=== PATIENT | female | born 1965 | race Caucasian/White ===

== ENCOUNTER → 2025-11-13 | Outpatient (CLI) | payer OTHER, SELFPAY ==
--- NOTE | 2025-11-13 08:55 | US_ITS ---
PROCEDURE: ABD LIMITED W/ ELASTOGRAPHY REASON FOR EXAM: JACOBSON COMPARISON: None. TECHNIQUE: Procedure Code: [id number] Modality: US Procedure: ABD LIMITED W/ ELASTOGRAPHY Right upper quadrant abdominal ultrasound. [facility] ElastQ Imaging shear wave elastography for non-invasive assessment of liver tissue stiffness. Erica EPIQ Elite. FINDINGS: LIVER: Size: Unremarkable Length: 15 cm Echotexture: Diffusely echogenic suggesting fatty infiltration Contour: Normal Lesions: None identified Elastography: EQI Med: 4.6 kPa EQI Med Juan A: 1.23 m/s IQR/Med: 14.7 %* GALLBLADDER: Surgically absent. COMMON BILE DUCT: Normal measuring 3.9 mm . PANCREAS: Normal Visualized portions of the right kidney are unremarkable. No right upper quadrant ascites. US/ABD Limited w/ Elastography IMPRESSION: NO TO MILD HEPATIC FIBROSIS Fatty infiltration of the liver. Status post cholecystectomy. Reference Values: SRU <1.37 m/s (5.7kPa): No to mild fibrosis 1.37 m/s - 2.2 m/s: Moderate to severe fibrosis >2.2 m/s (15kPa): Significant fibrosis / cirrhosis METAVIR Score F2 or higher: 1.34 m/s (5.7kPa) F3 or higher: 1.55 m/s (7.3kPa) F4: 1.80 m/s (10kPa) * If the IQR/Med is >30%, the variance in the measurements is a large and the a ccuracy of the measurement may be in question. Reading Location: [facility]
--- OUTSIDE RECORDS SUMMARY | 2025-11-13 09:21 | XMS RPT_ITS | CCD ---
Author Organization [facility] Care Team Providers Care Roaster Operator Name Role Phone UNKNOWN, PROVIDER Unavailable Unavailable GABRIEL WILSON Unavailable Unavailable Gholam, Osito Unavailable Unavailable Gabriel Wilson Unavailable Unavailable Gabriel Wilson Unavailable Unavailable Gholam, Osito M Unavailable Unavailable Gabriel Wilson Primary Care Provider [phone] Gabriel Wilson Unavailable Unavailable Unavailable Gabriel Wilson Primary Care Provider TAMIA ENCARNACION Attending Unavailable TAMIA ENCARNACION Referring Unavailable GABRIEL WILSON Primary Care Unavailab le Gabriel Wilson Primary Care Provider Gabriel Wilson Primary Care Provider Gabriel Wilson Primary Care Provider Ms. Ness Steele Attending Chun Steele, MsCierra Kiser Referring Unav ailleroy WILSON, MD GABRIEL DESAI Primary Care Unavai lable STENGOLDIE, MD GABRIEL DESAI Primary Care Unavai lable STENGOLDIE, MD GABRIEL DESAI Attending Unavai lable STENCEL, MD GABRIEL DESAI Referring Unavai lable STENCEL, MD GABRIEL DESAI Primary Care Unavai lable STENGOLDIE, MD GABRIEL DESAI Attending Unavai lable STENCEL, MD GABRIEL DESAI Referring Unavai lable Stencel, Dr. Gabriel Desai Attending Unava ilable Stencel, Dr. Gabriel Desai Primary Care Unava ilGabriel Rice MD Primary Care Provider [phone] Gabriel Wilson MD Primary Care Provider [phone] Cedric MONITORING AND EVALUATION ADVISOR-BLANKING MACHINE OPERATOR, Ness L Unavailable Gabriel Wilson MD Unavailable Gabriel Wilson MD Primary Care Provider Gabriel Wilson MD Unavailable Gabriel Wilson MD Primary Care Provider Gabriel Wilson MD Unavailable Gabriel Wilson MD Primary Care Provider [phone] GABRIEL WILSON Attending Unavailable STENCEL, GABRIEL Braden Referring Unavailable STENCEL, GABRIEL Braden Primary Care Unavailable STENCEL, GABRIEL Braden Attending Unavailable STENCEL, GABRIEL Braden Referring Unavailable STENCEL, GABRIEL Braden Primary Care Unavailable STENCEL, AGBRIEL Braden Referring Unavailable STENCEL, GABRIEL Braden Primary Care Unavailable RODGERS, JAY B Attending Unavailable STENCEL, GABRIEL Braden Primary Care Unavailable RODGERS, JAY B Referring Unavailable STENCEL, GABRIEL Braden Primary Care Unavailable STENCEL, GABRIEL Braden Primary Care Unavailable TAMIA ENCARNACION Attending Unavailable STENCEL, GABRIEL Braden Primary Care Unavailable RODGERS, JAY B Referring Unavailable RODGERS, JAY B Referring Unavailable STENCEL, GABRIEL Braden Primary Care Unavailable RODGERS, JAY B Attending Unavailable RODGERS, JAY B Referring Unavailable STENCEL, GABRIEL Braden Primary Care Unavailable RODGERS, JAY B Referring Unavailable STENCEL, GABRIEL Braden Primary Care Unavailable RODGERS, JAY B Attending Unavailable STENGOLDIE, GABRIEL Braden Primary Care Unavailable RODGERS, JAY B Referring Unavailable Allergies Allergy Classification Reported Allergen(s) Allergy Type Date of Onset Reaction(s) Facility (7 sources) traMADol; Translations: [Ultram] Drug Allergy [place] [id number] [facility] Work Phone: (20 sources) traMADol; Translations: [TRAMADOL] Drug Allergy 04-30-2014 Vomiting, Unknown [facility] Medications Current Medications Medication Drug Class(es) Dates Sig (Normalized) Sig (Original) [id number] 200 actuat albuterol 0.09 mg/actuat metered dose inhaler (6 sources) beta2-Adrenergic Agonist Start: 03-01-2024 take 2 puff(s) by inhalation every six hours for wheezing albuterol 90 mcg/actuation inhaler Indications: Wheezing-associate d respiratory infection (WARI) Inhale 2 puffs every 6 hours if needed for wheezing. 18 g 3 03/01/2024 Active End: 03-01-2024 albuterol 90 mcg/actuation i nhaler Inhale. 0 03/01/2024 Discontinued (Reorder) Albuterol AERS R efills: 0 Active aspirin 325 mg oral tablet (20 sources) Platelet Aggregation Inhibitor, Nonsteroidal Anti-inflammatory Drug Start: 02-03-2020 take 1 tablet by mouth once daily aspirin 325 mg tablet Take 1 tablet (325 mg) by mouth once daily. 02/03/2020 Active Start: 02-03-2020 take 1 tablet by sebastian th once daily Aspirin 325 MG Oral Tablet Delayed Release Take 1 tablet daily Quantity: 0 Refills: 0 Ordered: 03-Feb-2020 DO Start : 03-Feb-2020 Active Comment on above: Take 325 mg by mouth once daily. doxycycline hyclate 100 mg oral capsule (1 source) Tetracycline-class Drug Start: End: doxycycline (Vibramycin) 100 mg capsule Indications: Wheezing-associate d respiratory infection (WARI) Take 1 capsule (100 mg) by mouth 2 times a day for 7 days. Take with at least 8 ounces (large glass) of water, do not lie down for 30 minutes after 14 capsule 3 03/01/2024 03/08/2024 Active hydroCHLOROthiazide 12.5 mg / losartan potassium 50 mg oral tablet (20 sources) Thiazide Diuretic, Angiotensin 2 Receptor Jinny Start: 014 End: take 1 tablet by mouth once daily LOSARTAN-HYDROCHLO ROTHIAZIDE 50-12.5 mg per tablet Take 1 tablet by mouth once daily. 04/09/2014 Active Comment on above: Take 1 tablet by sebastian th once daily. nitrofurantoin, macrocrystals 25 mg / nitrofurantoin, monohydrate 75 mg oral capsule (1 source) Nitrofuran Antibacterial Start: 023 End: take 1 capsule by mouth twice daily nitrofurantoin, macrocrystal-monoh ydrate, (Macrobid) 100 mg capsule Indications: Acute cystitis without hematuria Take 1 capsule (100 mg) by mouth 2 times a day for 5 days. 10 capsule 0 08/31/2023 09/05/2023 Active predniSONE 10 mg oral tablet (3 sources) Start: End: take 4 tablets by mouth once daily predniSONE (Deltasone) 10 mg tablet Indications: Wheezing-associate d respiratory infection (WARI) Take 4 tablets (40 mg) by mouth once daily for 5 days. 20 tablet 3 03/01/2024 03/06/2024 Active Start: 08-31-2023 End: 09-05-2023 take 4 tablets by mouth once daily predniSONE (Deltasone) 10 mg tablet Indications: Urticaria Take 4 tablets (40 mg) by mouth once daily for 5 days. 20 tablet 1 08/31/2023 09/05/2023 Active Start: 01-19-2023 take 2 tablets by [facility] once daily predniSONE 20 MG Oral Tablet TAKE 2 TABLET Daily Quantity: 10 Refills: 1 Ordered: 19-Jan-2023 Ness Jimenez Start : 19-Jan-2023 Active Completed/Discontinued Medications Medication Drug Class(es) Dates Sig (Normalized) Sig (Original) Albuterol AERS (6 sources) Albuterol AERS Quantity: 0 Refills: 0 Ordered: 07-Aug-2018 DO Active cefprozil 250 mg oral tablet (2 sources) Cephalosporin Antibacterial Start: 01-27-2022 End: 08-02-2022 take 1 tablet by mouth once daily Cefprozil 250 MG Oral Tablet TAKE 1 TABLET EVERY 12 HOURS DAILY. Quantity: 14 Refills: 1 Ordered: 27-Jan-2022 Gabriel Wilson MD Start : 27-Jan-2022 End : 02-Aug-2022 Complete cefuroxime 500 mg oral tablet (1 source) Cephalosporin Antibacterial Start: 01-19-2023 take 1 tablet by mouth once daily Cefuroxime Axetil 500 MG Oral Tablet TAKE 1 TABLET EVERY 12 HOURS DAILY. Quantity: 14 Refills: 0 Ordered: 19-Jan-2023 Ness Jimenez Start : 19-Jan-2023 Active cyclobenzaprine hydrochloride 5 mg oral tablet (8 sources) Muscle Relaxant Start: 06-30-2023 End: 08-28-2024 take 1 tablet by mouth once daily as needed cyclobenzaprine (FLEXERIL) 5 mg tablet Take 1 tablet by mouth once daily as needed. 30 tablet 06/30/2023 08/28/2024 Discontinued Comment on above: Take 1 tablet by sebastian once daily as needed. hydroxyurea 500 mg oral capsule (20 sources) Antimetabolite Start: 03-02-2022 End: 05-27-2025 take 1 capsule by mouth twice daily, then take 1 capsule by mouth once daily hydroxyurea (HYDREA) 500 mg capsule Indications: Thrombocythemia , Macrocytosis without anemia TAKE 1 CAPSULE BY MOUTH TWICE A DAY MONDAY THROUGH MONDAY AND TAKE 1 CAP DAILY ON MONDAY 60 capsule 5 02/25/2025 05/27/2025 Discontinued take 1 capsule by mouth once olamide ly Hydrea 500 MG Oral Capsule TAKE 1 CAPSULE ONCE DAILY. Quantity: 0 Refills: 0 Ordered: 02-Jul-2020 DO Active Comment on above: TAKE 1 CAPSULE BY MO UT TWICE A DAY MONDAY THROUGH MONDAY AND TAKE 1 CAP DAILY MONDAY AND MONDAY TAKE 1 CAPSULE BY MO UTH TWICE A DAY MONDAY THROUGH MONDAY AND TAKE 1 CAP DAILY ON MONDAY pantoprazole 40 mg delayed release oral tablet (1 source) Proton Pump Inhibitor Start: 02-28-20 End: 08-31-20 take 1 tablet by mouth once daily pantoprazole (ProtoNix) 40 mg EC tablet Indications: Gastroesophageal reflux disease without esophagitis Take 1 tablet (40 mg) by mouth once daily. Do not crush, chew, or split. 30 tablet 5 02/27/2023 08/31/2023 Discontinued (Ineffective) potassium chloride 10 meq extended release oral tablet (8 sources) Start: 11-28-19 End: 05-27-20 take 1 tablet by mouth once daily potassium chloride (K-TAB) 10 mEq tablet Indications: Hypokalemia TAKE 1 TABLET BY MOUTH EVERY DAY 30 tablet 01/27/2025 05/27/2025 Discontinued Problems Active Problems Problem Classification Problem Date Documented Da te Episodic/Chronic Allergic reactions (1 source) Urticaria; Translations: [Urticaria, unspecified] 08-31-2023 Episodic Essential hypertension (18 sources) Hypertensive disorder; Translations: [Unspecified essential hypertension] Onset: 01-03-2023 08-31-2023 Chronic Fluid and electrolyte disorders (3 sources) Hypokalemia; Translations: [Hypokalemia] 11-28-2024 Episodic Hepatitis (11 sources) Nonalcoholic steatohepatitis; Translations: [Other chronic nonalcoholic liver disease] Onset: 01-03-2023 01-03-2023 Chronic Immunizations and screening for infectious disease (20 sources) Patient encounter status; Translations: [Other specified vaccination] Onset: 06-30-2023 06-30-2023 Episodic Neoplasms of unspecified nature or uncertain behavior (11 sources) Thrombocytosis; Translations: [Essential thrombocythemia] Onset: 03-01-2024 03-01-2024 Chronic Neoplasms of unspecified nature or uncertain behavior (20 sources) Thrombocytosis; Translations: [Essential thrombocythemia] Onset: 12-10-2009 12-10-2009 Episodic Other connective tissue disease (1 source) Pain in left lower limb; Translations: [Pain in left leg] Episodic Other hematologic conditions (20 sources) Macrocytosis - no anemia; Translations: [Other specified diseases of blood and blood-forming organs] Onset: 06-30-2023 06-30-2023 Chronic Other hematologic conditions (1 source) Other specified diseases of blood and blood-forming organs; Translations: [Macrocytosis without anemia] Onset: 06-30-2023 Chronic Other liver diseases (1 source) Fatty (change of) liver, not elsewhere classified; Translations: [Fatty (change of) liver, not elsewhere classified] Onset: 08-29-2018 Chronic Other liver diseases (12 sources) Steatosis of liver; Translations: [Other chronic nonalcoholic liver disease] Onset: 01-03-2023 01-03-2023 Chronic Other lower respiratory disease (1 source) Wheezing; Translations: [Wheezing] Onset: 02-28-2023 Episodic Other lower respiratory disease (2 sources) Respiratory tract infection; Translations: [Other specified respiratory disorders] 03-01-2024 Episodic Other nutritional; endocrine; and metabolic disorders (12 sources) Obesity; Translations: [Obesity, unspecified] Onset: 01-03-2023 01-03-2023 Chronic Other screening for suspected conditions (not mental disorders or infectious disease) (6 sources) Encounter for screening mammogram for malignant neoplasm of breast; Translations: [Encounter for screening for malignant neoplasm of colon] Onset: 04-11-2025 Episodic Other upper respiratory infections (1 source) Acute pharyngitis; Translations: [Acute pharyngitis] Episodic Otitis media and related conditions (1 source) Acute suppurative otitis media without spontaneous rupture of ear drum; Translations: [Acute suppurative otitis media without spontaneous rupture of eardrum] Episodic Unclassified (2 sources) Fatty (change of) liver, not elsewhere classified / K76.0(ICD-9) Onset: 08-29-2018 Unclassified (1 source) Hepatic fibrosis / K74.0(ICD-9) Onset: 08-29-2018 Unclassified (2 sources) Subacute cough; Translations: [Subacute cough] Onset: 02-28-2023 Unclassified (1 source) Cough, unspecified; Translations: [Cough, unspecified] Onset: 02-28-2023 Unclassified (4 sources) Patient encounter status 04-11-2025 Unclassified (1 source) Thrombocytosis, unspecified; Translations: [Thrombocytosis, unspecified] Onset: 01-03-2023 Unclassified (1 source) Thrombocythemia; Translations: [Thrombocythemia] Onset: 12-10-2009 Urinary tract infections (1 source) Acute cystitis; Translations: [Acute cystitis without hematuria] 08-31-2023 Episodic Past or Other Problems Problem Classification Problem Date Documented Da te Episodic/Chronic Administrative/social admission (1 source) Patient entered into trial; Translations: [Research study patient] Calculus of urinary tract (11 sources) Kidney stone; Translations: [Calculus of kidney] Onset: 01-03-2023 01-03-2023 Episodic Other aftercare (11 sources) Long-term current use of drug therapy; Translations: [Encounter for therapeutic drug level monitoring] Onset: 06-30-2023 06-30-2023 Episodic Other liver diseases (11 sources) Elevated liver enzymes level; Translations: [Other nonspecific abnormal serum enzyme levels] Onset: 01-03-2023 01-03-2023 Episodic Other lower respiratory disease (2 sources) Other specified respiratory disorders; Translations: [Other specified respiratory disorders] Onset: 08-30-2024 Episodic Residual codes; unclassified (7 sources) Past history of procedure; Translations: [Other specified personal history presenting hazards to health] Onset: 08-07-2019 Episodic Unclassified (1 source) Subacute cough; Translations: [Subacute cough] Onset: 02-28-2023 Unclassified (1 source) Onset: 04-11-2025 04-11-2025 Unclassified (1 source) Thrombocytosis, unspecified; Translations: [Thrombocytosis, unspecified] Onset: 08-30-2024 NEGATED: Highlighted row has not occurred!Residual codes; unclassified (9 sources) Disease Episodic Results Test Name Value Interpretation Reference Range Facility CBC W Auto Differential pane l (Bld)on 10-06-2025 Basophils (Bld) [#/Vol] 0.06 10*3/uL Normal <0.11 [facility] Comment on above: Order Comment: Speci jaylin Type: BLOOD SPECIMEN Ordering Facility: [facility] Address: [address] [place] [address] Performed By: #### 2 4323-8 #### [facility] CLIA [id number] [address] [place] [id number] [place] Basophils/100 WBC (Bld) 0.9 % Normal [facility] Comment on above: Order Comment: Cathleen mosqueda Type: BLOOD SPECIMEN Ordering Facility: [facility] Address: [address] [place] [address] Performed By: #### 2 4323-8 #### [facility] CLIA [id number] [address] [id number] [place] Differential cell count method Nom (Bld) Auto Normal [facility] Comment on above: Order Comment: Cathleen mosqueda Type: BLOOD SPECIMEN Ordering Facility: [facility] Address: [address] [place] [address] Performed By: #### 2 4323-8 #### [facility] CLIA [id number] [facility] [place] [id number] [place] Eosinophils (Bld) [#/Vol] 0.19 10*3/uL Normal <0.46 [facility] Comment on above: Order Comment: Cathleen mosqueda Type: BLOOD SPECIMEN Ordering Facility: [facility] Address: [address] [place] [address] Performed By: #### 2 4323-8 #### [facility] CLIA [id number] [address] [place] [id number] [place] Eosinophils/100 WBC (Bld) 3.0 % Normal [facility] Comment on above: Order Comment: Speci men Type: BLOOD SPECIMEN Ordering Facility: [facility] Address: [address] [place] [address] Performed By: #### 2 4323-8 #### [facility] CLIA [id number] [address] [place] [id number] [place] Erythrocyte distribution width (RBC) [Ratio] 12.4 % Normal 11.5-15.0 [facility] Comment on above: Order Comment: Speci men Type: BLOOD SPECIMEN Ordering Facility: [facility] Address: [address] [place] [address] Performed By: #### 2 4323-8 #### [facility] CLIA [id number] [facility] [place] [id number] [place] Hematocrit (Bld) [Volume fraction] 42.3 % Normal 36.0-46.0 [facility] Comment on above: Order Comment: Speci men Type: BLOOD SPECIMEN Ordering Facility: [facility] Address: [address] [place] [address] Performed By: #### 2 4323-8 #### [facility] CLIA [id number] [facility] [place] [id number] [place] Hemoglobin (Bld) [Mass/Vol] 14.8 g/dL Normal 11.5-15.5 [facility] Comment on above: Order Comment: Speci men Type: BLOOD SPECIMEN Ordering Facility: [facility] Address: [address] [place] [address] Performed By: #### 2 4323-8 #### [facility] CLIA [id number] [address] [place] [id number] [place] Immature granulocytes (Bld) [#/Vol] 10*3/uL Normal <0.10 [facility] Comment on above: Order Comment: Speci men Type: BLOOD SPECIMEN Ordering Facility: [facility] Address: [address] [place] [address] Performed By: #### 2 4323-8 #### [facility] CLIA [id number] [address] [place] [id number] [place] Immature granulocytes/100 WBC (Bld) 0.3 % Normal [facility] Comment on above: Order Comment: Speci men Type: BLOOD SPECIMEN Ordering Facility: [facility] Address: [address] [place] [address] Performed By: #### 2 4323-8 #### [facility] CLIA [id number] [address] [place] [id number] [place] Lymphocytes (Bld) [#/Vol] 1.91 10*3/uL Normal 1.00-4.00 [facility] Comment on above: Order Comment: Speci men Type: BLOOD SPECIMEN Ordering Facility: [facility] Address: [address] [place] [address] Performed By: #### 2 4323-8 #### [facility] CLIA [id number] [facility] [place] [address] [place] Lymphocytes/100 WBC (Bld) 29.9 % Normal [facility] Comment on above: Order Comment: Speci men Type: BLOOD SPECIMEN Ordering Facility: [facility] Address: [address] [place] [address] Performed By: #### 2 4323-8 #### [facility] CLIA [id number] [facility] [place] [id number] [place] MCH (RBC) [Entitic mass] 37.2 pg High 26.0-34.0 [facility] Comment on above: Order Comment: Speci men Type: BLOOD SPECIMEN Ordering Facility: [facility] Address: [address] [place] [address] Performed By: #### 2 4323-8 #### [facility] CLIA [id number] [facility] [place] [id number] [place] MCHC (RBC) [Mass/Vol] 35.0 g/dL Normal 30.5-36.0 [facility] Comment on above: Order Comment: Speci men Type: BLOOD SPECIMEN Ordering Facility: [facility] Address: [address] [place] [address] Performed By: #### 2 4323-8 #### [facility] CLIA [id number] [address] [place] [id number] [place] MCV (RBC) [Entitic vol] 106.3 fL High 80.0-100.0 [facility] Comment on above: Order Comment: Speci men Type: BLOOD SPECIMEN Ordering Facility: [facility] Address: [address] [place] [address] Performed By: #### 2 4323-8 #### [facility] CLIA [id number] [address] [place] [id number] [place] Monocytes (Bld) [#/Vol] 0.29 10*3/uL Normal <0.87 [facility] Comment on above: Order Comment: Speci men Type: BLOOD SPECIMEN Ordering Facility: [facility] Address: [address] [place] [address] Performed By: #### 2 4323-8 #### [facility] CLIA [id number] [address] [place] [id number] [place] Monocytes/100 WBC (Bld) 4.5 % Normal [facility] Comment on above: Order Comment: Speci men Type: BLOOD SPECIMEN Ordering Facility: [facility] Address: [address] [place] [address] Performed By: #### 2 4323-8 #### [facility] CLIA [id number] [address] [place] [id number] [place] Neutrophils (Bld) [#/Vol] 3.91 10*3/uL Normal 1.45-7.50 [facility] Comment on above: Order Comment: Speci men Type: BLOOD SPECIMEN Ordering Facility: [facility] Address: [address] [place] [address] Performed By: #### 2 4323-8 #### [facility] CLIA [id number] [address] [id number] [place] Neutrophils/100 WBC (Bld) 61.4 % Normal [facility] Comment on above: Order Comment: Speci men Type: BLOOD SPECIMEN Ordering Facility: [facility] Address: [address] [place] [address] Performed By: #### 2 4323-8 #### [facility] CLIA [id number] [address] [place] [address] [place] Nucleated RBC (Bld) [#/Vol] 10*3/uL Normal <0.01 [facility] Comment on above: Order Comment: Speci men Type: BLOOD SPECIMEN Ordering Facility: [facility] Address: [address] [place] [address] Performed By: #### 2 4323-8 #### [facility] CLIA [id number] [address] [id number] [place] Nucleated RBC/100 WBC (Bld) [Ratio] 0.0 /100 WBC Normal [facility] Comment on above: Order Comment: Speci men Type: BLOOD SPECIMEN Ordering Facility: [facility] Address: [address] [place] [address] Performed By: #### 2 4323-8 #### [facility] CLIA [id number] [address] [place] [id number] [place] Platelet mean volume (Bld) [Entitic vol] 8.5 fL Low 9.0-12.7 [facility] Comment on above: Order Comment: Speci men Type: BLOOD SPECIMEN Ordering Facility: [facility] Address: [address] [place] [address] Performed By: #### 2 4323-8 #### [facility] CLIA [id number] [address] [place] [address] [place] Platelets (Bld) [#/Vol] 428 10*3/uL High 150-400 [facility] Comment on above: Order Comment: Speci men Type: BLOOD SPECIMEN Ordering Facility: [facility] Address: [address] [place] [address] Performed By: #### 2 4323-8 #### [facility] CLIA [id number] [address] [id number] [place] RBC (Bld) [#/Vol] 3.98 10*6/uL Normal 3.90-5.20 [facility] Comment on above: Order Comment: Speci men Type: BLOOD SPECIMEN Ordering Facility: [facility] Address: [address] [place] [address] Performed By: #### 2 4323-8 #### [facility] CLIA [id number] [facility] [id number] [facility] WBC (Bld) [#/Vol] 6.38 10*3/uL Normal 3.70-11.00 [facility] Comment on above: Order Comment: Speci men Type: BLOOD SPECIMEN Ordering Facility: [facility] Address: [address] [place] [address] Performed By: #### 2 4323-8 #### [facility] CLIA [id number] [facility] [place] [id number] [facility] CNOVSPon 10-06-2025 CNOVSP Visit (SP) Office (H EMAAR) RAYA DOMINGUEZ ([id number]) 1965 F Date Time Provider Department 10/06/25 11:00 AM JAY RODGERS During your visit today, we recorded the following information about you: Pulse Respiration Blood pressure Weight 80/minute 16/minute 120/82 106.2 kg Jay Rodgers 10/06/2025 11:28 AM Signed HISTORY OF PRESENT ILLNESS: Ms. Raya Dominguez is a 60-year-old female with a past medical history of retention who has been diagnosed with essential thrombocytosis. Patient has been seen by Dr. Tomas. For complete details please see Dr. Tomas's note dated 10/16/2023. Patient currently is on Hydrea. She reports tolerating this well. She is without complaint. She was initially diagnosed with essential thrombocytosis in 10/2009. Patient initially was reluctant to start on Hydrea. He was just managed with observation until April 14, 2020 when she agreed to start on Hydrea. Patient's doses have gradually increased. Patient currently is taking Hydrea 500 mg twice BID Monday through and 1 tablet (500 mg )on Monday. She now returns CURRENT STATUS: Patient appears to be tolerating the Hydrea well. Patient is currently taking aspirin a day. She is currently without complaint. She is still working at [employer]. She has a son in [place] and a son in [place]. She reports that she developed a URI and has been rx doxcycline and is on day #4. ECOG PERFORMANCE STATUS: 0- Fully active, able to carry on all pre-disease performance w/o restriction. Social History Tobacco Use Smoking status: Never Smokeless tobacco: Never Substance Use Topics Alcohol use: No Drug use: No FAMILY HISTORY Problem Relation Age of Onset Thyroid Mother Cancer Father lung Hypertension Father Hypertension Sister Stroke Paternal Grandmother PAST MEDICAL HISTORY Diagnosis Date Hypertension Other acute pain 01/02/2012 Thrombocythemia (HCC) PHYSICAL EXAM: BP 120/82 Pulse 80 Resp 16 Wt 234 lb 2.1 oz (106.2kg) SpO2 94% CONSTITUTIONAL: Awake, alert, oriented. HEAD (Incl. face): Normocephalic; Atraumatic. EYES: Pupils are reactive. No scleral icterus. HEENT: No oral exudates. NECK: No thyromegaly. No JVD. HEMATOLOGY/LYMPHATIC: No petechiae or purpura. No tender or palpable lymph nodes in the cervical, supraclavicular, axillary or inguinal areas. RESPIRATORY: Lungs are clear to auscultation. CARDIOVASCULAR: Regular rate and rhythm. 2 + radial pulse. ABDOMEN: Non-tender, soft, positive bowel sounds. BACK/SPINE: No kyphosis or scoliosis. Non tender to palpation. MUSCULOSKELETAL: No tenderness or swelling, normal range of motion without obvious weakness. EXTREMITIES: No cyanosis, clubbing INTEGUMENTARY: No rashes or masses. NEURO: No sensory or motor deficits, normal cerebellar function, normal gait, cranial nerves intact. PSYCHIATRIC: Pleasant affect. No signs of agitation. LABS: Latest Reference Range AND Units 10/06/25 11:11 WBC 3.70 - 11.00 k/uL 6.38 RBC 3.90 - 5.20 m/uL 3.98 Hemoglobin 11.5 - 15.5 g/dL 14.8 Hematocrit 36.0 - 46.0 % 42.3 Platelet Count 150 - 400 k/uL 428 (H) MCV 80.0 - 100.0 fL 106.3 (H) MCH 26.0 - 34.0 pg 37.2 (H) MCHC 30.5 - 36.0 g/dL 35.0 MPV 9.0 - 12.7 fL 8.5 (L) RDW-CV 11.5 - 15.0 % 12.4 DTYPE Auto Neut% % 61.4 Abs Neut (ANC) 1.45 - 7.50 k/uL 3.91 Lymph% % 29.9 Abs Lymph 1.00 - 4.00 k/uL 1.91 [place]% % 4.5 Abs [place] <0.87 k/uL 0.29 Eosin% % 3.0 Abs Eosin <0.46 k/uL 0.19 Baso% % 0.9 Abs Baso <0.11 k/uL 0.06 Immature Gran % % 0.3 IMMATURE GRANS (ABS) <0.10 k/uL <0.03 NRBC /100 WBC 0.0 Absolute nRBC <0.01 k/uL <0.01 (H): Data is abnormally high (L): Data is abnormally low ASSESSMENT / PLAN: Esssential thrombocytosis, JAK2 mutated. She will now take 1000 mg Monday through Monday 500 mg on Monday. Her platelet count is mildly elevated but she is recovering from a URI and a course of antibiotics(3 more left) Will continue on current dose. Return to see me in 3 months. Some Elements Copied from my note previous note, May 27, 2025 I have updated where appropriate, and all reflect current medical decision making from today, October 06, 2025 Jay Rodgers MD This note was partially generated using Bilna voice recognition system, and there may be some incorrect words, spellings, and punctuation that were not noted in checking the note before saving. Referring Provider: JAY RODGERS [[id number]] Allergies As of Date: 10/06/2025 Noted Allergy Reaction ULTRAM (TRAMADOL) 04/30/2014 11 - Vomiting Date Reviewed: 10/06/2025 Reviewed by: Parvez Chaves MA - Fully Assessed Reason for Visit: Follow Up [171] Primary Visit Diagnosis:Thrombocythemia [D75.839] Disposition: Return in about 3 months (around 01/06/2026) for labs prior. Follow-up and Disposition History for Encounter Date Provider (more content not included)... Normal [facility] Comprehensive metabolic 2000 panelon 10-06-2025 Albumin [Mass/Vol] 4.5 g/dL Normal 3.9-4.9 [facility] Comment on above: Order Comment: Speci men Type: BLOOD SPECIMEN Ordering Facility: [facility] Address: [address] [place] [address] Performed By: #### 2 4323-8 #### [facility] CLIA [id number] [address] [place] [id number] [place] ALP [Catalytic activity/Vol] 118 U/L Normal 34-123 [facility] Comment on above: Order Comment: Speci men Type: BLOOD SPECIMEN Ordering Facility: [facility] Address: [address] [place] [address] Performed By: #### 2 4323-8 #### [facility] CLIA [id number] [address] [place] [id number] [place] ALT [Catalytic activity/Vol] 49 U/L High 7-38 [facility] Comment on above: Order Comment: Speci men Type: BLOOD SPECIMEN Ordering Facility: [facility] Address: [address] [place] [address] Performed By: #### 2 4323-8 #### [facility] CLIA [id number] [address] [place] [id number] [place] Anion gap [Moles/Vol] 10 mmol/L Normal 8-15 [facility] Comment on above: Order Comment: Speci men Type: BLOOD SPECIMEN Ordering Facility: [facility] Address: [address] [place] [address] Performed By: #### 2 4323-8 #### [facility] CLIA [id number] [address] [place] [address] [place] AST [Catalytic activity/Vol] 31 U/L Normal 13-35 [facility] Comment on above: Order Comment: Speci men Type: BLOOD SPECIMEN Ordering Facility: [facility] Address: [address] [place] [address] Performed By: #### 2 4323-8 #### [facility] CLIA [id number] [address] [place] [id number] [place] Bilirubin [Mass/Vol] 0.4 mg/dL Normal 0.2-1.3 [facility] Comment on above: Order Comment: Speci men Type: BLOOD SPECIMEN Ordering Facility: [facility] Address: [address] [place] [address] Performed By: #### 2 4323-8 #### [facility] CLIA [id number] [address] [place] [id number] [place] Calcium [Mass/Vol] 10.4 mg/dL High 8.5-10.2 [facility] Comment on above: Order Comment: Speci men Type: BLOOD SPECIMEN Ordering Facility: [facility] Address: [address] [place] [address] Performed By: #### 2 4323-8 #### [facility] CLIA [id number] [address] [place] [id number] [place] Chloride [Moles/Vol] 101 mmol/L Normal 98-107 [facility] Comment on above: Order Comment: Speci men Type: BLOOD SPECIMEN Ordering Facility: [facility] Address: [address] [place] [address] Performed By: #### 2 4323-8 #### [facility] CLIA [id number] [address] [place] [id number] [place] CO2 [Moles/Vol] 29 mmol/L Normal 22-30 [facility] Comment on above: Order Comment: Speci men Type: BLOOD SPECIMEN Ordering Facility: [facility] Address: [address] [place], [place] [address] Performed By: #### 2 4323-8 #### [facility] CLIA [id number] [address] [place] [id number] [place] Creatinine [Mass/Vol] 0.68 mg/dL Normal 0.58-0.96 [facility] Comment on above: Order Comment: Cathleen mosqueda Type: BLOOD SPECIMEN Ordering Facility: [facility] Address: [address] [place] [address] Performed By: #### 2 4323-8 #### [facility] CLIA [id number] [address] [place] [id number] [place] eGFRcr SerPlBld CKD-EPI 2020 99 mL/min/1.73m??? Normal >=60 [facility] Comment on above: Order Comment: Cathleen mosqueda Type: BLOOD SPECIMEN Ordering Facility: [facility] Address: [address] [place] [address] Result Comment: Mara mated Glomerular Filtration Rate (eGFR) is calculated using the 2020 CKD-EPI creatinine equation. This equation utilizes serum creatinine, sex, and age as parameters. The creatinine assay has traceable calibration to isotope dilution-mass spectrometry. Refer to KDIGO guidelines for clinical interpretation. In patients with unstable renal function, e.g. those with acute kidney injury, the eGFR may not accurately reflect actual GFR. Performed By: #### 2 4323-8 #### [facility] CLIA [id number] [facility] [place] [address] [place] Glucose [Mass/Vol] 123 mg/dL High 74-99 [facility] Comment on above: Order Comment: Cathleen mosqueda Type: BLOOD SPECIMEN Ordering Facility: [facility] Address: [address] [place] [address] Result Comment: The [place] Diabetes Association (ADA) provides guidance for cutoff values for fasting glucose and random glucose. The ADA defines fasting as no caloric intake for at least 8 hours. Fasting plasma glucose results between 100 to 125 mg/dL indicate increased risk for diabetes (prediabetes). Fasting plasma glucose results greater than or equal to 126 mg/dL meet the criteria for diagnosis of diabetes. In the absence of unequivocal hyperglycemia, results should be confirmed by repeat testing. In a patient with classic symptoms of hyperglycemia or hyperglycemic crisis, random plasma glucose results greater than or equal to 200 mg/dL meet the criteria for diagnosis of diabetes. Reference: Standards of Medical Care in Diabetes 2016, [place] [employer] Association. Diabetes Care. 2016.39(Suppl 1). Performed By: #### 2 4323-8 #### [facility] CLIA [id number] [address] [place] [id number] [place] Potassium [Moles/Vol] 4.0 mmol/L Normal 3.7-5.1 [facility] Comment on above: Order Comment: Speci men Type: BLOOD SPECIMEN Ordering Facility: [facility] Address: [address] [place] [address] Performed By: #### 2 4323-8 #### [facility] CLIA [id number] [facility] [place] [address] [place] Protein [Mass/Vol] 7.4 g/dL Normal 6.3-8.0 [facility] Comment on above: Order Comment: Speci men Type: BLOOD SPECIMEN Ordering Facility: [facility] Address: [address] [place] [address] Performed By: #### 2 4323-8 #### [facility] CLIA [id number] [facility] [place] [id number] [place] Sodium [Moles/Vol] 140 mmol/L Normal 136-144 [facility] Comment on above: Order Comment: Speci men Type: BLOOD SPECIMEN Ordering Facility: [facility] Address: [address] [place] [address] Performed By: #### 2 4323-8 #### [facility] CLIA [id number] [facility] [place] [address] [place] Urea nitrogen [Mass/Vol] 12 mg/dL Normal 7-21 [facility] Comment on above: Order Comment: Speci men Type: BLOOD SPECIMEN Ordering Facility: [facility] Address: [address] [place] [address] Performed By: #### 2 4323-8 #### [facility] CLIA [id number] [address] [place] [address] [place] CBC W Auto Differential pane l (Bld)on 05-27-2025 Basophils (Bld) [#/Vol] 0.05 10*3/uL [facility] Basophils/100 WBC (Bld) 0.7 % [facility] Differential cell count method Nom (Bld) Auto [facility] Eosinophils (Bld) [#/Vol] 0.17 10*3/uL [facility] Eosinophils/100 WBC (Bld) 2.5 % [facility] Erythrocyte distribution width (RBC) [Ratio] 13 % 11.5 - 15.0 % [facility] Hematocrit (Bld) [Volume fraction] 42.5 % 36.0 - 46.0 % [facility] Hemoglobin (Bld) [Mass/Vol] 14.8 g/dL 11.5 - 15.5 g/dL [facility] Immature granulocytes (Bld) [#/Vol] 0.07 10*3/uL [facility] Immature granulocytes/100 WBC (Bld) 1 % [facility] Interpretation and review of laboratory results Abnormal [facility] Lymphocytes (Bld) [#/Vol] 2.25 10*3/uL [facility] Lymphocytes/100 WBC (Bld) 33.3 % [facility] MCH (RBC) [Entitic mass] 36.1 pg High 26.0 - 34.0 pg [facility] MCHC (RBC) [Mass/Vol] 34.8 g/dL 30.5 - 36.0 g/dL [facility] MCV (RBC) [Entitic vol] 103.7 fL High 80.0 - 100.0 fL [facility] Monocytes (Bld) [#/Vol] 0.36 10*3/uL [facility] Monocytes/100 WBC (Bld) 5.3 % [facility] Neutrophils (Bld) [#/Vol] 3.86 10*3/uL [facility] Neutrophils/100 WBC (Bld) 57.2 % [facility] Nucleated RBC (Bld) [#/Vol] [facility] Nucleated RBC/100 WBC (Bld) [Ratio] 0 % /100 WBC [facility] Platelet mean volume (Bld) [Entitic vol] 8.9 fL Low 9.0 - 12.7 fL [facility] Platelets (Bld) [#/Vol] 435 10*3/uL High [facility] RBC (Bld) [#/Vol] 4.1 10*6/uL 3.90 - 5.2 0 m/uL [facility] WBC (Bld) [#/Vol] 6.76 10*3/uL [facility] Basophils (Bld) [#/Vol] 0.05 10*3/uL Normal <0.11 [facility] Comment on above: Order Comment: Speci men Type: BLOOD SPECIMEN Ordering Facility: [facility] Address: [address] [place] [address] Performed By: #### 2 4323-8 #### [facility] CLIA [id number] [facility] [place] [address] [place] Basophils/100 WBC (Bld) 0.7 % Normal [facility] Comment on above: Order Comment: Speci men Type: BLOOD SPECIMEN Ordering Facility: [facility] Address: [address] [place] [address] Performed By: #### 2 4323-8 #### [facility] CLIA [id number] [facility] [place] [address] [place] Differential cell count method Nom (Bld) Auto Normal [facility] Comment on above: Order Comment: Speci men Type: BLOOD SPECIMEN Ordering Facility: [facility] Address: [address] [place] [address] Performed By: #### 2 4323-8 #### [facility] CLIA [id number] [facility] [place] [id number] [place] Eosinophils (Bld) [#/Vol] 0.17 10*3/uL Normal <0.46 [facility] Comment on above: Order Comment: Speci men Type: BLOOD SPECIMEN Ordering Facility: [facility] Address: [address] [place] [address] Performed By: #### 2 4323-8 #### [facility] CLIA [id number] [address] [place] [id number] [place] Eosinophils/100 WBC (Bld) 2.5 % Normal [facility] Comment on above: Order Comment: Speci men Type: BLOOD SPECIMEN Ordering Facility: [facility] Address: [address] [place] [address] Performed By: #### 2 4323-8 #### [facility] CLIA [id number] [address] [place] [id number] [place] Erythrocyte distribution width (RBC) [Ratio] 13.0 % Normal 11.5-15.0 [facility] Comment on above: Order Comment: Speci men Type: BLOOD SPECIMEN Ordering Facility: [facility] Address: [address] [place] [address] Performed By: #### 2 4323-8 #### [facility] CLIA [id number] [facility] [place] Hematocrit (Bld) [Volume fraction] 42.5 % Normal 36.0-46.0 [facility] Comment on above: Order Comment: Speci men Type: BLOOD SPECIMEN Ordering Facility: [facility] Address: [address] [place] [address] Performed By: #### 2 4323-8 #### [facility] CLIA [id number] [facility] [place] [id number] [place] Hemoglobin (Bld) [Mass/Vol] 14.8 g/dL Normal 11.5-15.5 [facility] Comment on above: Order Comment: Speci men Type: BLOOD SPECIMEN Ordering Facility: [facility] Address: [address] [place] [address] Performed By: #### 2 4323-8 #### [facility] CLIA [id number] [facility] [place] [id number] [place] Immature granulocytes (Bld) [#/Vol] 0.07 10*3/uL Normal <0.10 [facility] Comment on above: Order Comment: Speci men Type: BLOOD SPECIMEN Ordering Facility: [facility] Address: [address] [place] [address] Performed By: #### 2 4323-8 #### [facility] CLIA [id number] [address] [place] [id number] [place] Immature granulocytes/100 WBC (Bld) 1.0 % Normal [facility] Comment on above: Order Comment: Speci men Type: BLOOD SPECIMEN Ordering Facility: [facility] Address: [address] [place] [address] Performed By: #### 2 4323-8 #### [facility] CLIA [id number] [address] [place] [id number] [place] Lymphocytes (Bld) [#/Vol] 2.25 10*3/uL Normal 1.00-4.00 [facility] Comment on above: Order Comment: Speci men Type: BLOOD SPECIMEN Ordering Facility: [facility] Address: [address] [place] [address] Performed By: #### 2 4323-8 #### [facility] CLIA [id number] [facility] [place] [address] [place] Lymphocytes/100 WBC (Bld) 33.3 % Normal [facility] Comment on above: Order Comment: Speci men Type: BLOOD SPECIMEN Ordering Facility: [facility] Address: [address] [place] [address] Performed By: #### 2 4323-8 #### [facility] CLIA [id number] [address] [place] [id number] [place] MCH (RBC) [Entitic mass] 36.1 pg High 26.0-34.0 [facility] Comment on above: Order Comment: Speci men Type: BLOOD SPECIMEN Ordering Facility: [facility] Address: [address] [place] [address] Performed By: #### 2 4323-8 #### [facility] CLIA [id number] [address] [place] [id number] [place] MCHC (RBC) [Mass/Vol] 34.8 g/dL Normal 30.5-36.0 [facility] Comment on above: Order Comment: Speci men Type: BLOOD SPECIMEN Ordering Facility: [facility] Address: [address] [place] [address] Performed By: #### 2 4323-8 #### [facility] CLIA [id number] [address] [place] [address] [place] MCV (RBC) [Entitic vol] 103.7 fL High 80.0-100.0 [facility] Comment on above: Order Comment: Speci men Type: BLOOD SPECIMEN Ordering Facility: [facility] Address: [address] [place] [address] Performed By: #### 2 4323-8 #### [facility] CLIA [id number] [address] [place] [id number] [place] Monocytes (Bld) [#/Vol] 0.36 10*3/uL Normal <0.87 [facility] Comment on above: Order Comment: Speci men Type: BLOOD SPECIMEN Ordering Facility: [facility] Address: [address] [place] [address] Performed By: #### 2 4323-8 #### [facility] CLIA [id number] [facility] [place] [address] [place] Monocytes/100 WBC (Bld) 5.3 % Normal [facility] Comment on above: Order Comment: Speci men Type: BLOOD SPECIMEN Ordering Facility: [facility] Address: [address] [place] [address] Performed By: #### 2 4323-8 #### [facility] CLIA [id number] [address] [place] [id number] [place] Neutrophils (Bld) [#/Vol] 3.86 10*3/uL Normal 1.45-7.50 [facility] Comment on above: Order Comment: Speci men Type: BLOOD SPECIMEN Ordering Facility: [facility] Address: [address] [place] [address] Performed By: #### 2 4323-8 #### [facility] CLIA [id number] [address] [place] [id number] [place] Neutrophils/100 WBC (Bld) 57.2 % Normal [facility] Comment on above: Order Comment: Speci men Type: BLOOD SPECIMEN Ordering Facility: [facility] Address: [address] [place] [address] Performed By: #### 2 4323-8 #### [facility] CLIA [id number] [address] [place] [id number] [place] Nucleated RBC (Bld) [#/Vol] 10*3/uL Normal <0.01 [facility] Comment on above: Order Comment: Speci men Type: BLOOD SPECIMEN Ordering Facility: [facility] Address: [address] [place] [address] Performed By: #### 2 4323-8 #### [facility] CLIA [id number] [facility] [place] [address] [place] Nucleated RBC/100 WBC (Bld) [Ratio] 0.0 /100 WBC Normal [facility] Comment on above: Order Comment: Speci men Type: BLOOD SPECIMEN Ordering Facility: [facility] Address: [address] [place] [address] Performed By: #### 2 4323-8 #### [facility] CLIA [id number] [facility] [place] [id number] [place] Platelet mean volume (Bld) [Entitic vol] 8.9 fL Low 9.0-12.7 [facility] Comment on above: Order Comment: Speci men Type: BLOOD SPECIMEN Ordering Facility: [facility] Address: [address] [place] [address] Performed By: #### 2 4323-8 #### [facility] [facility] CLIA [id number] [facility] [id number] [place] Platelets (Bld) [#/Vol] 435 10*3/uL High 150-400 [facility] Comment on above: Order Comment: Speci men Type: BLOOD SPECIMEN Ordering Facility: [facility] Address: [address] [place] [address] Performed By: #### 2 4323-8 #### [facility] CLIA [id number] [address] [id number] [place] RBC (Bld) [#/Vol] 4.10 10*6/uL Normal 3.90-5.20 [facility] Comment on above: Order Comment: Speci men Type: BLOOD SPECIMEN Ordering Facility: [facility] Address: [address] [place] [address] Performed By: #### 2 4323-8 #### [facility] CLIA [id number] [address] [id number] [place] WBC (Bld) [#/Vol] 6.76 10*3/uL Normal 3.70-11.00 [facility] Comment on above: Order Comment: Speci men Type: BLOOD SPECIMEN Ordering Facility: [facility] Address: [address] [place] [address] Performed By: #### 2 4323-8 #### [facility] CLIA [id number] [address] [id number] [facility] CNOVSPon 05-27-2025 CNOVSP Visit (SP) Office ([facility]) RAYA DOMINGUEZ ([id number]) 1965 F Date Time Provider Department 05/27/25 1:00 PM JAY RODGERS During your visit today, we recorded the following information about you: Temperature Pulse Respiration Blood pressure 97 degrees 74/minute 20/minute 133/86 Weight 106.5 kg Jay Rodgers 05/27/2025 1:44 PM Signed HISTORY OF PRESENT ILLNESS: Ms. Raya Dominguez is a 59-year-old female with a past medical history of retention who has been diagnosed with essential thrombocytosis. Patient has been seen by Dr. Tomas. For complete details please see Dr. Tomas's note dated 10/16/2023. Patient currently is on Hydrea. She reports tolerating this well. She is without complaint. She was initially diagnosed with essential thrombocytosis in 10/2009. Patient initially was reluctant to start on Hydrea. He was just managed with observation until April 14, 2020 when she agreed to start on Hydrea. Patient's doses have gradually increased. Patient currently is taking Hydrea 500 mg twice BID Monday through and 1 tablet (500 mg )on Monday. She now returns CURRENT STATUS: Patient appears to be tolerating the Hydrea well. Patient is currently taking aspirin a day. She is currently without complaint. ECOG PERFORMANCE STATUS: 0- Fully active, able to carry on all pre-disease performance w/o restriction. Social History Tobacco Use Smoking status: Never Smokeless tobacco: Never Substance Use Topics Alcohol use: No Drug use: No FAMILY HISTORY Problem Relation Age of Onset Thyroid Mother Cancer Father lung Hypertension Father Hypertension Sister Stroke Paternal Grandmother PAST MEDICAL HISTORY Diagnosis Date Hypertension Other acute pain 01/02/2012 Thrombocythemia (HCC) PHYSICAL EXAM: BP 133/86 Pulse 74 Temp (Src) 97 (Temporal) Resp 20 Wt 234 lb 12.6 oz (106.5kg) SpO2 98% CONSTITUTIONAL: Awake, alert, oriented. HEAD (Incl. face): Normocephalic; Atraumatic. EYES: Pupils are reactive. No scleral icterus. HEENT: No oral exudates. NECK: No thyromegaly. No JVD. HEMATOLOGY/LYMPHATIC: No petechiae or purpura. No tender or palpable lymph nodes in the cervical, supraclavicular, axillary or inguinal areas. RESPIRATORY: Lungs are clear to auscultation. CARDIOVASCULAR: Regular rate and rhythm. 2 + radial pulse. ABDOMEN: Non-tender, soft, positive bowel sounds. BACK/SPINE: No kyphosis or scoliosis. Non tender to palpation. MUSCULOSKELETAL: No tenderness or swelling, normal range of motion without obvious weakness. EXTREMITIES: No cyanosis, clubbing INTEGUMENTARY: No rashes or masses. NEURO: No sensory or motor deficits, normal cerebellar function, normal gait, cranial nerves intact. PSYCHIATRIC: Pleasant affect. No signs of agitation. LABS: Latest Reference Range AND Units 05/27/25 12:29 05/27/25 12:30 Sodium 136 - 144 mmol/L 139 Potassium 3.7 - 5.1 mmol/L 4.1 Chloride 98 - 107 mmol/L 101 CO2 22 - 30 mmol/L 26 BUN 7 - 21 mg/dL 16 Creatinine 0.58 - 0.96 mg/dL 0.60 Glucose 74 - 99 mg/dL 94 Protein, Total 6.3 - 8.0 g/dL 7.2 Calcium 8.5 - 10.2 mg/dL 9.7 Albumin 3.9 - 4.9 g/dL 4.6 Bilirubin, Total 0.2 - 1.3 mg/dL 0.7 Alkaline Phosphatase 34 - 123 U/L 89 ALT 7 - 38 U/L 33 AST 13 - 35 U/L 29 Anion Gap 8 - 15 mmol/L 12 eGFR >=60 mL/min/1.73m? 103 WBC 3.70 - 11.00 k/uL 6.76 RBC 3.90 - 5.20 m/uL 4.10 Hemoglobin 11.5 - 15.5 g/dL 14.8 Hematocrit 36.0 - 46.0 % 42.5 Platelet Count 150 - 400 k/uL 435 (H) MCV 80.0 - 100.0 fL 103.7 (H) MCH 26.0 - 34.0 pg 36.1 (H) MCHC 30.5 - 36.0 g/dL 34.8 MPV 9.0 - 12.7 fL 8.9 (L) RDW-CV 11.5 - 15.0 % 13.0 DTYPE Auto Neut% % 57.2 Abs Neut (ANC) 1.45 - 7.50 k/uL 3.86 Lymph% % 33.3 Abs Lymph 1.00 - 4.00 k/uL 2.25 [place]% % 5.3 Abs [place] <0.87 k/uL 0.36 Eosin% % 2.5 Abs Eosin <0.46 k/uL 0.17 Baso% % 0.7 Abs Baso <0.11 k/uL 0.05 Immature Gran % % 1.0 IMMATURE GRANS (ABS) <0.10 k/uL 0.07 NRBC /100 WBC 0.0 Absolute nRBC <0.01 k/uL <0.01 (H): Data is abnormally high (L): Data is abnormally low ASSESSMENT / PLAN: Esssential thrombocytosis, JAK2 mutated. She will now take 1000 mg Monday through Monday 500 mg on Monday. Suspect patient's previous elevation of platelet count was related to the steroids. Her platelet count is back in the normal range. Will continue on current dose. Return to see me in 3 months. Some Elements Copied from my note previous note, February 25, 2025. I have updated where appropriate, and all reflect current medical decision making from today, May 27, 2025 Jay Rodgers MD This note was partially generated using Bilna voice recognition system, and there may be some incorrect words, spellings, and punctuation that were not noted in checking the note before saving. Referring Provider: JAY RODGERS [[id number]] Allergies As of Date: 05/27/2025 Note (more content not included)... Normal [facility] 05-27-2025 CNPN Telephone ([facility]) RAYA DOMINGUEZ ([id number]) 1965 F Date Time Provider Department 05/27/25 J[facility]GERS [facility] During your visit today, we recorded the following information about you: Allergies As of Date: 05/27/2025 Noted Allergy Reaction ULTRAM (TRAMADOL) 04/30/2014 11 - Vomiting Date Reviewed: 05/27/2025 Reviewed by: Leah Pop LPN - Fully Assessed Primary Visit Diagnosis:Thrombocythemia [D75.839] Order(s):COMPLETE BLOOD COUNT AND DIFFERENTIAL [SQCBCDIF] Order #: [id number] FUTURE Prescriptions as of 05/27/2025 - hydroxyurea (HYDREA) 500 mg capsule TAKE 1 CAPSULE BY MOUTH TWICE A DAY MONDAY THROUGH MONDAY AND TAKE 1 CAP DAILY ON MONDAY - potassium chloride (K-TAB) 10 mEq tablet TAKE 1 TABLET BY MOUTH EVERY DAY - aspirin 325 mg tablet Take 325 mg by mouth once daily. - LOSARTAN-HYDROCHLOROTHIAZIDE 50-12.5 mg per tablet Take 1 tablet by mouth once daily. Problem List As Of Date 05/27/2025 Noted Resolved Thrombocythemia [D75.839] 12/10/2009 Encounter for monitoring of hydroxyurea therapy*06/30/2023 Macrocytosis without anemia [D75.89] 06/30/2023 Encounter Status:Closed by JAY RODGERS on 05/27/25 Normal [facility] Comprehensive metabolic 2000 panelon 05-27-2025 Albumin [Mass/Vol] 4.6 g/dL Normal 3.9-4.9 [facility] Comment on above: Order Comment: Speci men Type: BLOOD SPECIMEN Ordering Facility: [facility] Address: [address] [place] [address] Performed By: #### 2 4323-8 #### [facility] CLIA [id number] [address] [place] [id number] [place] ALP [Catalytic activity/Vol] 89 U/L Normal 34-123 [facility] Comment on above: Order Comment: Speci men Type: BLOOD SPECIMEN Ordering Facility: [facility] Address: [address] [place] [address] Performed By: #### 2 4323-8 #### [facility] CLIA [id number] [facility] [address] [place] ALT [Catalytic activity/Vol] 33 U/L Normal 7-38 [facility] Comment on above: Order Comment: Speci men Type: BLOOD SPECIMEN Ordering Facility: [facility] Address: [address] [place] [address] Performed By: #### 2 4323-8 #### [facility] CLIA [id number] [address] [place] [id number] [place] Anion gap [Moles/Vol] 12 mmol/L Normal 8-15 [facility] Comment on above: Order Comment: Speci men Type: BLOOD SPECIMEN Ordering Facility: [facility] Address: [address] [place] [address] Performed By: #### 2 4323-8 #### [facility] CLIA [id number] [address] [place] [id number] [place] AST [Catalytic activity/Vol] 29 U/L Normal 13-35 [facility] Comment on above: Order Comment: Speci men Type: BLOOD SPECIMEN Ordering Facility: [facility] Address: [address] [place] [address] Performed By: #### 2 4323-8 #### [facility] CLIA [id number] [address] [place] [id number] [place] Bilirubin [Mass/Vol] 0.7 mg/dL Normal 0.2-1.3 [facility] Comment on above: Order Comment: Speci men Type: BLOOD SPECIMEN Ordering Facility: [facility] Address: [address] [place] [address] Performed By: #### 2 4323-8 #### [facility] CLIA [id number] [facility] [place] [address] [place] Calcium [Mass/Vol] 9.7 mg/dL Normal 8.5-10.2 [facility] Comment on above: Order Comment: Speci men Type: BLOOD SPECIMEN Ordering Facility: [facility] Address: [address] [place] [address] Performed By: #### 2 4323-8 #### [facility] CLIA [id number] [facility] [place] [address] [place] Chloride [Moles/Vol] 101 mmol/L Normal 98-107 [facility] Comment on above: Order Comment: Speci men Type: BLOOD SPECIMEN Ordering Facility: [facility] Address: [address] [place] [address] Performed By: #### 2 4323-8 #### [facility] CLIA [id number] [facility] [place] [address] [place] CO2 [Moles/Vol] 26 mmol/L Normal 22-30 [facility] Comment on above: Order Comment: Speci men Type: BLOOD SPECIMEN Ordering Facility: [facility] Address: [address] [place] [address] Performed By: #### 2 4323-8 #### [facility] CLIA [id number] [address] [place] [id number] [place] [facility] Creatinine [Mass/Vol] 0.60 mg/dL Normal 0.58-0.96 [facility] Comment on above: Order Comment: Cathleen mosqueda Type: BLOOD SPECIMEN Ordering Facility: [facility] Address: [address] [place] [address] Performed By: #### 2 4323-8 #### [facility] CLIA [id number] [address] [place] [address] [facility] Creatinine and Glomerular filtration rate.predicted panel (S/P/Bld) 103 mL/min/1.73m??? Normal >=60 [facility] Comment on above: Order Comment: Cathleen mosqueda Type: BLOOD SPECIMEN Ordering Facility: [facility] Address: [address] [place] [address] Result Comment: Mara mated Glomerular Filtration Rate (eGFR) is calculated using the 2020 CKD-EPI creatinine equation. This equation utilizes serum creatinine, sex, and age as parameters. The creatinine assay has traceable calibration to isotope dilution-mass spectrometry. Refer to KDIGO guidelines for clinical interpretation. In patients with unstable renal function, e.g. those with acute kidney injury, the eGFR may not accurately reflect actual GFR. Performed By: #### 2 4323-8 #### [facility] CLIA [id number] [address] [place] [place] [id number] [place] Glucose [Mass/Vol] 94 mg/dL Normal 74-99 [facility] Comment on above: Order Comment: Cathleen mosqueda Type: BLOOD SPECIMEN Ordering Facility: [facility] Address: [address] [place] [address] Result Comment: The [place] Diabetes Association (ADA) provides guidance for cutoff values for fasting glucose and random glucose. The ADA defines fasting as no caloric intake for at least 8 hours. Fasting plasma glucose results between 100 to 125 mg/dL indicate increased risk for diabetes (prediabetes). Fasting plasma glucose results greater than or equal to 126 mg/dL meet the criteria for diagnosis of diabetes. In the absence of unequivocal hyperglycemia, results should be confirmed by repeat testing. In a patient with classic symptoms of hyperglycemia or hyperglycemic crisis, random plasma glucose results greater than or equal to 200 mg/dL meet the criteria for diagnosis of diabetes. Reference: Standards of Medical Care in Diabetes 2016, [place] [employer] Association. Diabetes Care. 2016.39(Suppl 1). Performed By: #### 2 4323-8 #### [facility] CLIA [id number] [address] [place] [place] [address] [place] Potassium [Moles/Vol] 4.1 mmol/L Normal 3.7-5.1 [facility] Comment on above: Order Comment: Speci men Type: BLOOD SPECIMEN Ordering Facility: [facility] Address: [address] [place] [address] Performed By: #### 2 4323-8 #### [facility] CLIA [id number] [facility] [place] [address] [place] Protein [Mass/Vol] 7.2 g/dL Normal 6.3-8.0 [facility] Comment on above: Order Comment: Speci men Type: BLOOD SPECIMEN Ordering Facility: [facility] Address: [address] [place] [address] Performed By: #### 2 4323-8 #### [facility] CLIA [id number] [facility] [place] [address] [place] Sodium [Moles/Vol] 139 mmol/L Normal 136-144 [facility] Comment on above: Order Comment: Speci men Type: BLOOD SPECIMEN Ordering Facility: [facility] Address: [address] [place] [address] Performed By: #### 2 4323-8 #### [facility] CLIA [id number] [facility] [place] [address] [place] Urea nitrogen [Mass/Vol] 16 mg/dL Normal 7-21 [facility] Comment on above: Order Comment: Speci men Type: BLOOD SPECIMEN Ordering Facility: [facility] Address: [address] [place] [address] Performed By: #### 2 4323-8 #### [facility] CLIA [id number] [address] [place] [id number] [place] BI MAMMO BILATERAL SCREENING TOMOSYNTHESISon 04-18-2025 BI MAMMO BILATERAL SCREENING TOMOSYNTHESIS Interpreted By: Kings Ortega, STUDY: BI MAMMO BILATERAL SCREENING TOMOSYNTHESIS; 04/18/2025 8:00 am ACCESSION NUMBER(S): [id number] ORDERING CLINICIAN: GABRIEL WILSON INDICATION: Screening. COMPARISON: Digital mammograms dated 09/08/2023 FINDINGS: CC and MLO 2D digital mammograms and digital breast tomosynthesis images were obtained of the bilateral breasts. 3-D volume images were reconstructed in 4 views at an independent workstation as 1 mm slices through the breasts in both the CC and MLO projections. Density: The breasts are almost entirely fatty. No discrete mass or focal asymmetry is identified. No suspicious microcalcifications or foci of architectural distortion are seen. There has been no significant change. This study was interpreted with CAD. IMPRESSION: No mammographic evidence of malignancy. BI-RADS CATEGORY: BI-RADS Category: 1 Negative. Recommendation: Annual Screening. Recommended Date: 1 Year. Laterality: Bilateral. MACRO: None Signed by: Kings Ortega 04/18/2025 10:33 AM Dictation workstation: [id number] [facility] CBC W Auto Differential pane l (Bld)on 02-25-2025 Basophils (Bld) [#/Vol] 0.05 10*3/uL Normal <0.11 [facility] Comment on above: Order Comment: Speci men Type: BLOOD SPECIMEN Ordering Facility: [facility] Address: [address] [place] [address] Performed By: #### 5 7021-8 #### [facility] CLIA [id number] [address] [place] [address] [place] Basophils/100 WBC (Bld) 0.8 % Normal [facility] Comment on above: Order Comment: Speci men Type: BLOOD SPECIMEN Ordering Facility: [facility] Address: [address] [place] [address] Performed By: #### 5 7021-8 #### [facility] CLIA [id number] [address] [place] [place] [id number] [place] Differential cell count method Nom (Bld) Auto Normal [facility] Comment on above: Order Comment: Speci men Type: BLOOD SPECIMEN Ordering Facility: [facility] Address: [address] [place] [address] Performed By: #### 5 7021-8 #### [facility] CLIA [id number] [address] [place] [address] [place] Eosinophils (Bld) [#/Vol] 0.14 10*3/uL Normal <0.46 [facility] Comment on above: Order Comment: Speci men Type: BLOOD SPECIMEN Ordering Facility: [facility] Address: [address] [place] [address] Performed By: #### 5 7021-8 #### [facility] CLIA [id number] [address] [place] [address] [place] Eosinophils/100 WBC (Bld) 2.2 % Normal [facility] Comment on above: Order Comment: Speci men Type: BLOOD SPECIMEN Ordering Facility: [facility] Address: [address] [place] [address] Performed By: #### 5 7021-8 #### [facility] CLIA [id number] [address] [place], [place] [address] [place] Erythrocyte distribution width (RBC) [Ratio] 11.9 % Normal 11.5-15.0 [facility] Comment on above: Order Comment: Speci men Type: BLOOD SPECIMEN Ordering Facility: [facility] Address: [address] [place] [address] Performed By: #### 5 7021-8 #### [facility] CLIA [id number] [address] [place], [place] [address] [place] Hematocrit (Bld) [Volume fraction] 42.3 % Normal 36.0-46.0 [facility] Comment on above: Order Comment: Speci men Type: BLOOD SPECIMEN Ordering Facility: [facility] Address: [address] [place] [address] Performed By: #### 5 7021-8 #### [facility] CLIA [id number] [address] [place] [address] [place] Hemoglobin (Bld) [Mass/Vol] 14.6 g/dL Normal 11.5-15.5 [facility] Comment on above: Order Comment: Speci men Type: BLOOD SPECIMEN Ordering Facility: [facility] Address: [address] [place] [address] Performed By: #### 5 7021-8 #### [facility] CLIA [id number] [address] [id number] [place] Immature granulocytes (Bld) [#/Vol] 10*3/uL Normal <0.10 [facility] Comment on above: Order Comment: Speci men Type: BLOOD SPECIMEN Ordering Facility: [facility] Address: [address] [place] [address] Performed By: #### 5 7021-8 #### [facility] CLIA [id number] [address] [id number] [place] Immature granulocytes/100 WBC (Bld) 0.2 % Normal [facility] Comment on above: Order Comment: Speci men Type: BLOOD SPECIMEN Ordering Facility: [facility] Address: [address] [place] [address] Performed By: #### 5 7021-8 #### [facility] CLIA [id number] [address] [id number] [place] Lymphocytes (Bld) [#/Vol] 2.08 10*3/uL Normal 1.00-4.00 [facility] Comment on above: Order Comment: Speci men Type: BLOOD SPECIMEN Ordering Facility: [facility] Address: [address] [place] [address] Performed By: #### 5 7021-8 #### [facility] CLIA [id number] [address] [id number] [place] Lymphocytes/100 WBC (Bld) 32.3 % Normal [facility] Comment on above: Order Comment: Speci men Type: BLOOD SPECIMEN Ordering Facility: [facility] Address: [address] [place] [address] Performed By: #### 5 7021-8 #### [facility] CLIA [id number] [address] [place] [id number] [place] MCH (RBC) [Entitic mass] 36.9 pg High 26.0-34.0 [facility] Comment on above: Order Comment: Speci men Type: BLOOD SPECIMEN Ordering Facility: [facility] Address: [address] [place] [address] Performed By: #### 5 7021-8 #### [facility] CLIA [id number] [facility] [place] [address] [place] MCHC (RBC) [Mass/Vol] 34.5 g/dL Normal 30.5-36.0 [facility] Comment on above: Order Comment: Speci men Type: BLOOD SPECIMEN Ordering Facility: [facility] Address: [address] [place] [address] Performed By: #### 5 7021-8 #### [facility] CLIA [id number] [facility] [place] [address] [place] MCV (RBC) [Entitic vol] 106.8 fL High 80.0-100.0 [facility] Comment on above: Order Comment: Speci men Type: BLOOD SPECIMEN Ordering Facility: [facility] Address: [address] [place] [address] Performed By: #### 5 7021-8 #### [facility] CLIA [id number] [facility] [place] [id number] [place] Monocytes (Bld) [#/Vol] 0.30 10*3/uL Normal <0.87 [facility] Comment on above: Order Comment: Speci men Type: BLOOD SPECIMEN Ordering Facility: [facility] Address: [address] [place] [address] Performed By: #### 5 7021-8 #### [facility] CLIA [id number] [address] [id number] [place] Monocytes/100 WBC (Bld) 4.7 % Normal [facility] Comment on above: Order Comment: Speci men Type: BLOOD SPECIMEN Ordering Facility: [facility] Address: [address] [place] [address] Performed By: #### 5 7021-8 #### [facility] CLIA [id number] [address] [id number] [place] Neutrophils (Bld) [#/Vol] 3.86 10*3/uL Normal 1.45-7.50 [facility] Comment on above: Order Comment: Speci men Type: BLOOD SPECIMEN Ordering Facility: [facility] Address: [address] [place] [address] Performed By: #### 5 7021-8 #### [facility] [facility] CLIA [id number] [facility] [place] [id number] [place] Neutrophils/100 WBC (Bld) 59.8 % Normal [facility] Comment on above: Order Comment: Speci men Type: BLOOD SPECIMEN Ordering Facility: [facility] Address: [address] [place] [address] Performed By: #### 5 7021-8 #### [facility] CLIA [id number] [address] [place] [id number] [place] Nucleated RBC (Bld) [#/Vol] 10*3/uL Normal <0.01 [facility] Comment on above: Order Comment: Speci men Type: BLOOD SPECIMEN Ordering Facility: [facility] Address: [address] [place] [address] Performed By: #### 5 7021-8 #### [facility] CLIA [id number] [facility] [place] [address] [place] Nucleated RBC/100 WBC (Bld) [Ratio] 0.0 /100 WBC Normal [facility] Comment on above: Order Comment: Speci men Type: BLOOD SPECIMEN Ordering Facility: [facility] Address: [address] [place], [place] [address] Performed By: #### 5 7021-8 #### [facility] CLIA [id number] [facility] [place] [id number] [place] Platelet mean volume (Bld) [Entitic vol] 8.4 fL Low 9.0-12.7 [facility] Comment on above: Order Comment: Speci men Type: BLOOD SPECIMEN Ordering Facility: [facility] Address: [address] [place] [address] Performed By: #### 5 7021-8 #### [facility] CLIA [id number] [address] [place] [id number] [place] Platelets (Bld) [#/Vol] 437 10*3/uL High 150-400 [facility] Comment on above: Order Comment: Speci men Type: BLOOD SPECIMEN Ordering Facility: [facility] Address: [address] [place] [address] Performed By: #### 5 7021-8 #### [facility] CLIA [id number] [facility] [place] [id number] [place] RBC (Bld) [#/Vol] 3.96 10*6/uL Normal 3.90-5.20 [facility] Comment on above: Order Comment: Speci men Type: BLOOD SPECIMEN Ordering Facility: [facility] Address: [address] [place] [address] Performed By: #### 5 7021-8 #### [facility] CLIA [id number] [facility] [place] [address] [place] WBC (Bld) [#/Vol] 6.44 10*3/uL Normal 3.70-11.00 [facility] Comment on above: Order Comment: Speci men Type: BLOOD SPECIMEN Ordering Facility: [facility] Address: [address] [place] [address] Performed By: #### 5 7021-8 #### [facility] CLIA [id number] [facility] [place] [id number] [place] CNOVSPon 02-25-2025 CNOVSP Visit (SP) Office ([facility]) RAYA DOMINGUEZ ([id number]) 1965 F Date Time Provider Department 02/25/25 1:00 PM JAY RODGERS During your visit today, we recorded the following information about you: Temperature Pulse Respiration Blood pressure 98 degrees 77/minute 16/minute 139/88 Weight 105.4 kg Jay Rodgers 02/25/2025 1:13 PM Signed HISTORY OF PRESENT ILLNESS: Ms. Raya Dominguez is a 59-year-old female with a past medical history of retention who has been diagnosed with essential thrombocytosis. Patient has been seen by Dr. Tomas. For complete details please see Dr. Tomas's note dated 10/16/2023. Patient currently is on Hydrea. She reports tolerating this well. She is without complaint. She was initially diagnosed with essential thrombocytosis in 10/2009. Patient initially was reluctant to start on Hydrea. He was just managed with observation until April 14, 2020 when she agreed to start on Hydrea. Patient's doses have gradually increased. Patient currently is taking Hydrea 500 mg twice BID Monday through and 1 tablet (500 mg )on Monday. She now returns CURRENT STATUS: Patient appears to be tolerating the Hydrea well. Patient is currently taking aspirin a day. She is currently without complaint. ECOG PERFORMANCE STATUS: 0- Fully active, able to carry on all pre-disease performance w/o restriction. Social History Tobacco Use Smoking status: Never Smokeless tobacco: Never Substance Use Topics Alcohol use: No Drug use: No FAMILY HISTORY Problem Relation Age of Onset Thyroid Mother Cancer Father lung Hypertension Father Hypertension Sister Stroke Paternal Grandmother PAST MEDICAL HISTORY Diagnosis Date Hypertension Other acute pain 01/02/2012 Thrombocythemia (HCC) PHYSICAL EXAM: BP 139/88 Pulse 77 Temp (Src) 98 (Temporal) Resp 16 Wt 232 lb 5.8 oz (105.4kg) SpO2 98% CONSTITUTIONAL: Awake, alert, oriented. HEAD (Incl. face): Normocephalic; Atraumatic. EYES: Pupils are reactive. No scleral icterus. HEENT: No oral exudates. NECK: No thyromegaly. No JVD. HEMATOLOGY/LYMPHATIC: No petechiae or purpura. No tender or palpable lymph nodes in the cervical, supraclavicular, axillary or inguinal areas. RESPIRATORY: Lungs are clear to auscultation. CARDIOVASCULAR: Regular rate and rhythm. 2 + radial pulse. ABDOMEN: Non-tender, soft, positive bowel sounds. BACK/SPINE: No kyphosis or scoliosis. Non tender to palpation. MUSCULOSKELETAL: No tenderness or swelling, normal range of motion without obvious weakness. EXTREMITIES: No cyanosis, clubbing INTEGUMENTARY: No rashes or masses. NEURO: No sensory or motor deficits, normal cerebellar function, normal gait, cranial nerves intact. PSYCHIATRIC: Pleasant affect. No signs of agitation. LABS: Latest Reference Range AND Units 02/25/25 12:32 WBC 3.70 - 11.00 k/uL 6.44 RBC 3.90 - 5.20 m/uL 3.96 Hemoglobin 11.5 - 15.5 g/dL 14.6 Hematocrit 36.0 - 46.0 % 42.3 Platelet Count 150 - 400 k/uL 437 (H) MCV 80.0 - 100.0 fL 106.8 (H) MCH 26.0 - 34.0 pg 36.9 (H) MCHC 30.5 - 36.0 g/dL 34.5 MPV 9.0 - 12.7 fL 8.4 (L) RDW-CV 11.5 - 15.0 % 11.9 DTYPE Auto Neut% % 59.8 Abs Neut (ANC) 1.45 - 7.50 k/uL 3.86 Lymph% % 32.3 Abs Lymph 1.00 - 4.00 k/uL 2.08 [place]% % 4.7 Abs [place] <0.87 k/uL 0.30 Eosin% % 2.2 Abs Eosin <0.46 k/uL 0.14 Baso% % 0.8 Abs Baso <0.11 k/uL 0.05 Immature Gran % % 0.2 IMMATURE GRANS (ABS) <0.10 k/uL <0.03 NRBC /100 WBC 0.0 Absolute nRBC <0.01 k/uL <0.01 (H): Data is abnormally high (L): Data is abnormally low ASSESSMENT / PLAN: Esssential thrombocytosis, JAK2 mutated. She will now take 1000 mg Monday through Monday 500 mg on Monday. Suspect patient's previous elevation of platelet count was related to the steroids. His platelet count is back in the normal range. Will continue on current dose. Return to see me in 3 months. Some Elements Copied from my note previous note, August 28, 2024. I have updated where appropriate, and all reflect current medical decision making from today, February 25, 2025. Jay Rodgers MD This note was partially generated using [employer]na voice recognition system, and there may be some incorrect words, spellings, and punctuation that were not noted in checking the note before saving. Referring Provider: JAY RODGERS [[id number]] Allergies As of Date: 02/25/2025 Noted Allergy Reaction ULTRAM (TRAMADOL) 04/30/2014 11 - Vomiting Date Reviewed: 02/25/2025 Reviewed by: Parvez Chaves MA - Fully Assessed Reason for Visit: Follow Up [171] Primary Visit Diagnosis:Thrombocythemia [D75.839] Other Visit Diagnosis:Macrocytosis without anemia [D75.89] Order(s):hydroxyurea (HYDREA) 500 mg capsuleTAKE 1 CAPSULE BY MOUTH TWICE A DAY MONDAY THROUGH MONDAY AND TAKE 1 CAP DAILY ON MONDAYDisp: 60 capsuleRfl: 5 Disposition: Return in about (more content not included)... Normal [facility] Comprehensive metabolic 2000 panelon 02-25-2025 Albumin [Mass/Vol] 4.5 g/dL Normal 3.9-4.9 [facility] Comment on above: Order Comment: Speci men Type: BLOOD SPECIMEN Ordering Facility: [facility] Address: [address] [place] [address] Performed By: #### 2 4323-8 #### [facility] CLIA [id number] [address] [place] [address] [place] ALP [Catalytic activity/Vol] 93 U/L Normal 34-123 [facility] Comment on above: Order Comment: Speci men Type: BLOOD SPECIMEN Ordering Facility: [facility] Address: [address] [place] [address] Performed By: #### 2 4323-8 #### [facility] CLIA [id number] [address] [place] [address] [place] ALT [Catalytic activity/Vol] 36 U/L Normal 7-38 [facility] Comment on above: Order Comment: Speci men Type: BLOOD SPECIMEN Ordering Facility: [facility] Address: [address] [place] [address] Performed By: #### 2 4323-8 #### [facility] CLIA [id number] [address] [place] [address] [place] Anion gap [Moles/Vol] 8 mmol/L Normal 8-15 [facility] Comment on above: Order Comment: Speci men Type: BLOOD SPECIMEN Ordering Facility: [facility] Address: [address] [place] [address] Performed By: #### 2 4323-8 #### [facility] CLIA [id number] [address] [place] [address] [place] AST [Catalytic activity/Vol] 25 U/L Normal 13-35 [facility] Comment on above: Order Comment: Speci men Type: BLOOD SPECIMEN Ordering Facility: [facility] Address: [address] [place] [address] Performed By: #### 2 4323-8 #### [facility] CLIA [id number] [address] [place] [address] [place] Bilirubin [Mass/Vol] 0.5 mg/dL Normal 0.2-1.3 [facility] Comment on above: Order Comment: Speci men Type: BLOOD SPECIMEN Ordering Facility: [facility] Address: [address] [place] [address] Performed By: #### 2 4323-8 #### [facility] CLIA [id number] [address] [place] [address] [place] Calcium [Mass/Vol] 9.8 mg/dL Normal 8.5-10.2 [facility] Comment on above: Order Comment: Speci men Type: BLOOD SPECIMEN Ordering Facility: [facility] Address: [address] [place] [address] Performed By: #### 2 4323-8 #### [facility] CLIA [id number] [address] [place] [address] [place] Chloride [Moles/Vol] 104 mmol/L Normal 98-107 [facility] Comment on above: Order Comment: Speci men Type: BLOOD SPECIMEN Ordering Facility: [facility] Address: [address] [place] [address] Performed By: #### 2 4323-8 #### [facility] CLIA [id number] [address] [place] [id number] [place] CO2 [Moles/Vol] 28 mmol/L Normal 22-30 [facility] Comment on above: Order Comment: Speci men Type: BLOOD SPECIMEN Ordering Facility: [facility] Address: [address] [place] [address] Performed By: #### 2 4323-8 #### [facility] CLIA [id number] [address] [place] [id number] [place] Creatinine [Mass/Vol] 0.62 mg/dL Normal 0.58-0.96 [facility] Comment on above: Order Comment: Speci men Type: BLOOD SPECIMEN Ordering Facility: [facility] Address: [address] [place] [address] Performed By: #### 2 4323-8 #### [facility] CLIA [id number] [address] [place] [address] [place] Creatinine and Glomerular filtration rate.predicted panel (S/P/Bld) 102 mL/min/1.73m??? Normal >=60 [facility] Comment on above: Order Comment: Speci men Type: BLOOD SPECIMEN Ordering Facility: [facility] Address: [address] [place] [address] Result Comment: Mara mated Glomerular Filtration Rate (eGFR) is calculated using the 2020 CKD-EPI creatinine equation. This equation utilizes serum creatinine, sex, and age as parameters. The creatinine assay has traceable calibration to isotope dilution-mass spectrometry. Refer to KDIGO guidelines for clinical interpretation. In patients with unstable renal function, e.g. those with acute kidney injury, the eGFR may not accurately reflect actual GFR. Performed By: #### 2 4323-8 #### [facility] CLIA [id number] [address] [place] [address] [place] Glucose [Mass/Vol] 95 mg/dL Normal 74-99 [facility] Comment on above: Order Comment: Cathleen mosqueda Type: BLOOD SPECIMEN Ordering Facility: [facility] Address: [address] [place] [address] Result Comment: The [place] Diabetes Association (ADA) provides guidance for cutoff values for fasting glucose and random glucose. The ADA defines fasting as no caloric intake for at least 8 hours. Fasting plasma glucose results between 100 to 125 mg/dL indicate increased risk for diabetes (prediabetes). Fasting plasma glucose results greater than or equal to 126 mg/dL meet the criteria for diagnosis of diabetes. In the absence of unequivocal hyperglycemia, results should be confirmed by repeat testing. In a patient with classic symptoms of hyperglycemia or hyperglycemic crisis, random plasma glucose results greater than or equal to 200 mg/dL meet the criteria for diagnosis of diabetes. Reference: Standards of Medical Care in Diabetes 2016, [place] [employer] Association. Diabetes Care. 2016.39(Suppl 1). Performed By: #### 2 4323-8 #### [facility] CLIA [id number] [address] [place] [address] [place] Potassium [Moles/Vol] 4.7 mmol/L Normal 3.7-5.1 [facility] Comment on above: Order Comment: Cathleen mosqueda Type: BLOOD SPECIMEN Ordering Facility: [facility] Address: [address] [place] [address] Performed By: #### 2 4323-8 #### [facility] CLIA [id number] [address] [place] [address] [place] Protein [Mass/Vol] 7.2 g/dL Normal 6.3-8.0 [facility] Comment on above: Order Comment: Speci men Type: BLOOD SPECIMEN Ordering Facility: [facility] Address: [address] [place] [address] Performed By: #### 2 4323-8 #### [facility] CLIA [id number] [address] [place] [id number] [place] Sodium [Moles/Vol] 140 mmol/L Normal 136-144 [facility] Comment on above: Order Comment: Speci men Type: BLOOD SPECIMEN Ordering Facility: [facility] Address: [address] [place] [address] Performed By: #### 2 4323-8 #### [facility] CLIA [id number] [address] [place] [address] [place] [facility] Urea nitrogen [Mass/Vol] 19 mg/dL Normal 7-21 [facility] Comment on above: Order Comment: Speci men Type: BLOOD SPECIMEN Ordering Facility: [facility] Address: [address] [place] [address] Performed By: #### 2 4323-8 #### [facility] CLIA [id number] [address] [place] [id number] [facility] CNPNon 11-28-2024 CNPN Telephone (HEMTMN) RAYA DOMINGUEZ ([id number]) 1965 F Date Time Provider Department 11/28[facility] visit today, we recorded the following information about you: Diamond Georges RN 11/28/2024 10:10 AM Signed ----- Message from Jay Rodgers sent at 11/26/2024 4:22 PM EST ----- Fax to [facility] ([facility] Start kcl 10 meq daily. Diamond Georges RN 11/28/2024 10:12 AM Signed Lab results faxed to pcp and script sent to Dr Rodgers for sig. Diamond Aguilar RN 11/28/2024 2:42 PM Signed Patient aware of results and new prescription. AA Allergies As of Date: 11/28/2024 Noted Allergy Reaction ULTRAM (TRAMADOL) 04/30/2014 11 - Vomiting Date Reviewed: 11/26/2024 Reviewed by: Tessy Espinosa MA - Fully Assessed Reason for Visit: Results [95] Cmt: Lab results faxed to pcp and script sent to Dr Rodgers for sig. AA Prescriptions as of 11/28/2024 - potassium chloride (K-TAB) 10 mEq tablet Take 1 tablet by mouth once daily. - hydroxyurea (HYDREA) 500 mg capsule TAKE 1 CAPSULE BY MOUTH TWICE A DAY MONDAY THROUGH MONDAY AND TAKE 1 CAP DAILY ON MONDAY - aspirin 325 mg tablet Take 325 mg by mouth once daily. - LOSARTAN-HYDROCHLOROTHIAZIDE 50-12.5 mg per tablet Take 1 tablet by mouth once daily. Problem List As Of Date 11/28/2024 Noted Resolved Thrombocythemia [D75.839] 12/10/2009 Encounter for monitoring of hydroxyurea therapy*06/30/2023 Macrocytosis without anemia [D75.89] 06/30/2023 Encounter Status:Closed by DIAMOND GEORGES on 11/28/24 Normal [facility] CBC W Auto Differential pane l (Bld)on 11-26-2024 Basophils (Bld) [#/Vol] 0.06 10*3/uL Normal <0.11 [facility] Comment on above: Order Comment: Cathleen mosqueda Type: BLOOD SPECIMEN Ordering Facility: [facility] Address: [address] [place] [address] Performed By: #### 2 4323-8 #### [facility] CLIA [id number] [address] [place] [place] [address] [place] Basophils/100 WBC (Bld) 1.1 % Normal [facility] Comment on above: Order Comment: Cathleen mosqueda Type: BLOOD SPECIMEN Ordering Facility: [facility] Address: [address] [place] [address] Performed By: #### 2 4323-8 #### [facility] CLIA [id number] [address] [place] [id number] [place] Differential cell count method Nom (Bld) Auto Normal [facility] Comment on above: Order Comment: Speci men Type: BLOOD SPECIMEN Ordering Facility: [facility] Address: [address] [place] [address] Performed By: #### 2 4323-8 #### [facility] CLIA [id number] [address] [place] [id number] [place] Eosinophils (Bld) [#/Vol] 0.14 10*3/uL Normal <0.46 [facility] Comment on above: Order Comment: Speci men Type: BLOOD SPECIMEN Ordering Facility: [facility] Address: [address] [place] [address] Performed By: #### 2 4323-8 #### [facility] CLIA [id number] [address] [place] [address] [place] Eosinophils/100 WBC (Bld) 2.5 % Normal [facility] Comment on above: Order Comment: Speci men Type: BLOOD SPECIMEN Ordering Facility: [facility] Address: [address] [place] [address] Performed By: #### 2 4323-8 #### [facility] CLIA [id number] [address] [place] [id number] [place] Erythrocyte distribution width (RBC) [Ratio] 12.6 % Normal 11.5-15.0 [facility] Comment on above: Order Comment: Speci men Type: BLOOD SPECIMEN Ordering Facility: [facility] Address: [address] [place] [address] Performed By: #### 2 4323-8 #### [facility] CLIA [id number] [facility] [place] [address] [place] Hematocrit (Bld) [Volume fraction] 41.8 % Normal 36.0-46.0 [facility] Comment on above: Order Comment: Speci men Type: BLOOD SPECIMEN Ordering Facility: [facility] Address: [address] [place] [address] Performed By: #### 2 4323-8 #### [facility] CLIA [id number] [address] [place] [address] [place] Hemoglobin (Bld) [Mass/Vol] 14.5 g/dL Normal 11.5-15.5 [facility] Comment on above: Order Comment: Speci men Type: BLOOD SPECIMEN Ordering Facility: [facility] Address: [address] [place] [address] Performed By: #### 2 4323-8 #### [facility] CLIA [id number] [address] [place] [id number] [place] Immature granulocytes (Bld) [#/Vol] 10*3/uL Normal <0.10 [facility] Comment on above: Order Comment: Speci men Type: BLOOD SPECIMEN Ordering Facility: [facility] Address: [address] [place] [address] Performed By: #### 2 4323-8 #### [facility] CLIA [id number] [address] [place] [id number] [place] Immature granulocytes/100 WBC (Bld) 0.4 % Normal [facility] Comment on above: Order Comment: Speci men Type: BLOOD SPECIMEN Ordering Facility: [facility] Address: [address] [place] [address] Performed By: #### 2 4323-8 #### [facility] CLIA [id number] [address] [place] [id number] [place] Lymphocytes (Bld) [#/Vol] 1.54 10*3/uL Normal 1.00-4.00 [facility] Comment on above: Order Comment: Speci men Type: BLOOD SPECIMEN Ordering Facility: [facility] Address: [address] [place] [address] Performed By: #### 2 4323-8 #### [facility] CLIA [id number] [address] [place] [id number] [place] Lymphocytes/100 WBC (Bld) 27.2 % Normal [facility] Comment on above: Order Comment: Speci men Type: BLOOD SPECIMEN Ordering Facility: [facility] Address: [address] [place] [address] Performed By: #### 2 4323-8 #### [facility] CLIA [id number] [address] [place] MCH (RBC) [Entitic mass] 37.9 pg High 26.0-34.0 [facility] Comment on above: Order Comment: Speci men Type: BLOOD SPECIMEN Ordering Facility: [facility] Address: [address] [place] [address] Performed By: #### 2 4323-8 #### [facility] CLIA [id number] [facility] [place] MCHC (RBC) [Mass/Vol] 34.7 g/dL Normal 30.5-36.0 [facility] Comment on above: Order Comment: Speci men Type: BLOOD SPECIMEN Ordering Facility: [facility] Address: [address] [place] [address] Performed By: #### 2 4323-8 #### [facility] CLIA [id number] [facility] [place] [address] [place] MCV (RBC) [Entitic vol] 109.1 fL High 80.0-100.0 [facility] Comment on above: Order Comment: Speci men Type: BLOOD SPECIMEN Ordering Facility: [facility] Address: [address] [place] [address] Performed By: #### 2 4323-8 #### [facility] CLIA [id number] [facility] [place] [id number] [place] Monocytes (Bld) [#/Vol] 0.23 10*3/uL Normal <0.87 [facility] Comment on above: Order Comment: Speci men Type: BLOOD SPECIMEN Ordering Facility: [facility] Address: [address] [place] [address] Performed By: #### 2 4323-8 #### [facility] CLIA [id number] [address] [place] [address] [place] Monocytes/100 WBC (Bld) 4.1 % Normal [facility] Comment on above: Order Comment: Speci men Type: BLOOD SPECIMEN Ordering Facility: [facility] Address: [address] [place] [address] Performed By: #### 2 4323-8 #### [facility] CLIA [id number] [address] [place] [id number] [place] Neutrophils (Bld) [#/Vol] 3.67 10*3/uL Normal 1.45-7.50 [facility] Comment on above: Order Comment: Speci men Type: BLOOD SPECIMEN Ordering Facility: [facility] Address: [address] [place] [address] Performed By: #### 2 4323-8 #### [facility] CLIA [id number] [address] [place] [id number] [place] Neutrophils/100 WBC (Bld) 64.7 % Normal [facility] Comment on above: Order Comment: Speci men Type: BLOOD SPECIMEN Ordering Facility: [facility] Address: [address] [place] [address] Performed By: #### 2 4323-8 #### [facility] CLIA [id number] [address] [place] [id number] [place] Nucleated RBC (Bld) [#/Vol] 10*3/uL Normal <0.01 [facility] Comment on above: Order Comment: Speci men Type: BLOOD SPECIMEN Ordering Facility: [facility] Address: [address] [place] [address] Performed By: #### 2 4323-8 #### [facility] CLIA [id number] [address] [place] [place] [id number] [place] Nucleated RBC/100 WBC (Bld) [Ratio] 0.0 /100 WBC Normal [facility] Comment on above: Order Comment: Speci men Type: BLOOD SPECIMEN Ordering Facility: [facility] Address: [address] [place] [address] Performed By: #### 2 4323-8 #### [facility] CLIA [id number] [address] [place] [address] [place] Platelet mean volume (Bld) [Entitic vol] 8.3 fL Low 9.0-12.7 [facility] Comment on above: Order Comment: Speci men Type: BLOOD SPECIMEN Ordering Facility: [facility] Address: [address] [place] [address] Performed By: #### 2 4323-8 #### [facility] CLIA [id number] [address] [place] [place] [id number] [place] Platelets (Bld) [#/Vol] 353 10*3/uL Normal 150-400 [facility] Comment on above: Order Comment: Speci men Type: BLOOD SPECIMEN Ordering Facility: [facility] Address: [address] [place] [address] Performed By: #### 2 4323-8 #### [facility] CLIA [id number] [facility] [place] [id number] [place] RBC (Bld) [#/Vol] 3.83 10*6/uL Low 3.90-5.20 [facility] Comment on above: Order Comment: Speci men Type: BLOOD SPECIMEN Ordering Facility: [facility] Address: [address] [place] [address] Performed By: #### 2 4323-8 #### [facility] CLIA [id number] [address] [place] [place] [id number] [place] WBC (Bld) [#/Vol] 5.66 10*3/uL Normal 3.70-11.00 [facility] Comment on above: Order Comment: Speci men Type: BLOOD SPECIMEN Ordering Facility: [facility] Address: [address] [place] [address] Performed By: #### 2 4323-8 #### [facility] CLIA [id number] [address] [place] [id number] [place] CNOVSPon 12-31-2024 CNOVSP Visit (SP) Office ([facility]) RAYA DOMINUGEZ ([id number]) 1965 F Date Time Provider Department 11/26/24 11:00 AM TAMIA ENCARNACION During your visit today, we recorded the following information about you: Temperature Pulse Respiration Blood pressure 98.3 degrees 78/minute 16/minute 125/82 Weight 104.2 kg Tamia Encarnacion APRN.[facility] 11/26/2024 5:50 PM Signed HISTORY OF PRESENT ILLNESS: Ms. Raya Dominguez is a 59-year-old female with a past medical history of retention who has been diagnosed with essential thrombocytosis. Patient has been seen by Dr. Tomas. For complete details please see Dr. Tomas's note dated 10/16/2023. Patient currently is on Hydrea. She reports tolerating this well. She is without complaint. She was initially diagnosed with essential thrombocytosis in 10/2009. Patient initially was reluctant to start on Hydrea. He was just managed with observation until April 14, 2020 when she agreed to start on Hydrea. Patient's doses have gradually increased. Patient currently is taking Hydrea 500 mg twice BID Monday through Monday and 1 tablet (500 mg )on Monday and Monday. She now returns CURRENT STATUS: She presents today for 3-month follow-up visit and discussion of repeat labs. She continues taking Hydrea 1000 every day except on Saturdays she takes 500 mg. She denies any new complaints. She also is taking a full-strength aspirin daily. She denies any abnormal bleeding or bruising. ROS: CONSTITUTIONAL: No fever, chills, night sweats or excessive fatigue. EYES: No significant visual difficulties. No diplopia. No blurred vision HEENT: No sore mouth or throat. No sinus drainage. ENDOCRINE: No hot flashes or night sweats. Denies excessive thirst. HEMATOLOGY/LYMPHOLOGY: No easy bruising or bleeding, The patient denies any tender or palpable lymph nodes. RESPIRATORY: Mild dyspnea on exertion,no chest pain or hemoptysis. CARDIOVASCULAR: Denies palpitations orthopnea. GASTROINTESTINAL: Denies GI bleeding or change in bowel habits. Denies heartburn or abdominal pain. MUSCULOSKELETAL: No joint pain, swelling or redness. No decreased range of motion. SKIN: No chronic rashes, inflammation, ulcerations or skin changes. NEURO: No headaches. Denies extremity weakness or numbness. ECOG PERFORMANCE STATUS: 0- Fully active, able to carry on all pre-disease performance w/o restriction. Social History Tobacco Use Smoking status: Never Smokeless tobacco: Never Substance Use Topics Alcohol use: No Drug use: No FAMILY HISTORY Problem Relation Age of Onset Thyroid Mother Cancer Father lung Hypertension Father Hypertension Sister Stroke Paternal Grandmother PAST MEDICAL HISTORY Diagnosis Date Hypertension Other acute pain 01/02/2012 Thrombocythemia (HCC) PHYSICAL EXAM: BP 125/82 Pulse 78 Temp 98.3 Resp 16 Wt 229 lb 11.5 oz (104.2kg) SpO2 98% CONSTITUTIONAL: Awake, alert, oriented. HEAD (Incl. face): Normocephalic; Atraumatic. EYES: Pupils are reactive. No scleral icterus. HEENT: No oral exudates. HEMATOLOGY/LYMPHATIC: No petechiae or purpura. No tender or palpable lymph nodes in the cervical, supraclavicular, axillary or inguinal areas. RESPIRATORY: Lungs are clear to auscultation. CARDIOVASCULAR: Regular rate and rhythm. 2 + radial pulse. Murmur present. ABDOMEN: Non-tender, soft, positive bowel sounds. MUSCULOSKELETAL: No tenderness or swelling, normal range of motion without obvious weakness. EXTREMITIES: No cyanosis, clubbing INTEGUMENTARY: No rashes or masses. No skin ulcers. NEURO: No sensory or motor deficits, normal cerebellar function, normal gait. PSYCHIATRIC: Pleasant affect. No signs of agitation. LABS: Latest Ref Rng 11/26/2024 WBC 3.70 - 11.00 k/uL 5.66 RBC 3.90 - 5.20 m/uL 3.83 (L) Hemoglobin 11.5 - 15.5 g/dL 14.5 Hematocrit 36.0 - 46.0 % 41.8 MCV 80.0 - 100.0 fL 109.1 (H) MCH 26.0 - 34.0 pg 37.9 (H) MCHC 30.5 - 36.0 g/dL 34.7 RDW-CV 11.5 - 15.0 % 12.6 Platelet Count 150 - 400 k/uL 353 MPV 9.0 - 12.7 fL 8.3 (L) Neut% % 64.7 Abs Neut (ANC) 1.45 - 7.50 k/uL 3.67 Lymph% % 27.2 Abs Lymph 1.00 - 4.00 k/uL 1.54 [place]% % 4.1 Abs [place] <0.87 k/uL 0.23 Eosin% % 2.5 Abs Eosin <0.46 k/uL 0.14 Baso% % 1.1 Abs Baso <0.11 k/uL 0.06 Immature Gran % % 0.4 IMMATURE GRANS (ABS) <0.10 k/uL <0.03 NRBC /100 WBC 0.0 Absolute nRBC <0.01 k/uL <0.01 [employer] Protein, Total 6.3 - 8.0 g/dL 6.8 Albumin 3.9 - 4.9 g/dL 4.4 Calcium 8.5 - 10.2 mg/dL 9.5 Bilirubin, Total 0.2 - 1.3 mg/dL 0.6 Alkaline Phosphatase 34 - 123 U/L 91 AST 13 - 35 U/L 25 ALT 7 - 38 U/L 30 Glucose 74 - 99 mg/dL 83 BUN 7 - 21 mg/dL 18 Creatinine 0.58 - 0.96 mg/dL 0.94 Sodium 136 - 144 mmol/L 144 Potassium 3.7 - 5.1 mmol/L 3.4 (L) Chloride 98 - 107 mmol/L 105 CO2 22 - 30 mmol/L 31 (H) Anion Gap 8 - 15 mmol/L 8 eGFR >=60 mL/ (more content not included)... Normal [facility] Comprehensive metabolic 2000 panelon 11-26-2024 Albumin [Mass/Vol] 4.4 g/dL Normal 3.9-4.9 [facility] Comment on above: Order Comment: Speci men Type: BLOOD SPECIMEN Ordering Facility: [facility] Address: [address] [place] [address] [place] [address] Performed By: #### 2 4323-8 #### [facility] CLIA [id number] [address] [place] [address] [place] ALP [Catalytic activity/Vol] 91 U/L Normal 34-123 [facility] Comment on above: Order Comment: Speci men Type: BLOOD SPECIMEN Ordering Facility: [facility] Address: [address] [place] [address] Performed By: #### 2 4323-8 #### [facility] CLIA [id number] [address] [place] [id number] [place] ALT [Catalytic activity/Vol] 30 U/L Normal 7-38 [facility] Comment on above: Order Comment: Speci men Type: BLOOD SPECIMEN Ordering Facility: [facility] Address: [address] [place] [address] Performed By: #### 2 4323-8 #### [facility] CLIA [id number] [address] [place] [id number] [place] Anion gap [Moles/Vol] 8 mmol/L Normal 8-15 [facility] Comment on above: Order Comment: Speci men Type: BLOOD SPECIMEN Ordering Facility: [facility] Address: [address] [place] [address] Performed By: #### 2 4323-8 #### [facility] CLIA [id number] [address] [place] [place] [id number] [place] AST [Catalytic activity/Vol] 25 U/L Normal 13-35 [facility] Comment on above: Order Comment: Speci men Type: BLOOD SPECIMEN Ordering Facility: [facility] Address: [address] [place] [address] Performed By: #### 2 4323-8 #### [facility] CLIA [id number] [address] [place] [id number] [place] Bilirubin [Mass/Vol] 0.6 mg/dL Normal 0.2-1.3 [facility] Comment on above: Order Comment: Speci men Type: BLOOD SPECIMEN Ordering Facility: [facility] Address: [address] [place] [address] Performed By: #### 2 4323-8 #### [facility] CLIA [id number] [address] [place] [id number] [place] Calcium [Mass/Vol] 9.5 mg/dL Normal 8.5-10.2 [facility] Comment on above: Order Comment: Speci men Type: BLOOD SPECIMEN Ordering Facility: [facility] Address: [address] [place] [address] Performed By: #### 2 4323-8 #### [facility] CLIA [id number] [address] [place] [id number] [place] Chloride [Moles/Vol] 105 mmol/L Normal 98-107 [facility] Comment on above: Order Comment: Speci men Type: BLOOD SPECIMEN Ordering Facility: [facility] Address: [address] [place] [address] Performed By: #### 2 4323-8 #### [facility] CLIA [id number] [address] [place] [id number] [place] CO2 [Moles/Vol] 31 mmol/L High 22-30 [facility] Comment on above: Order Comment: Speci men Type: BLOOD SPECIMEN Ordering Facility: [facility] Address: [address] [place] [address] Performed By: #### 2 4323-8 #### [facility] CLIA [id number] [address] [place] [id number] [place] Creatinine [Mass/Vol] 0.94 mg/dL Normal 0.58-0.96 [facility] Comment on above: Order Comment: Speci men Type: BLOOD SPECIMEN Ordering Facility: [facility] Address: [address] [place] [address] Performed By: #### 2 4323-8 #### [facility] CLIA [id number] [address] [place] [id number] [place] Creatinine and Glomerular filtration rate.predicted panel (S/P/Bld) 70 mL/min/1.73m??? Normal >=60 [facility] Comment on above: Order Comment: Cathleen mosqueda Type: BLOOD SPECIMEN Ordering Facility: [facility] Address: [address] [place], [place] [id number] Result Comment: Mara mated Glomerular Filtration Rate (eGFR) is calculated using the 2020 CKD-EPI creatinine equation. This equation utilizes serum creatinine, sex, and age as parameters. The creatinine assay has traceable calibration to isotope dilution-mass spectrometry. Refer to KDIGO guidelines for clinical interpretation. In patients with unstable renal function, e.g. those with acute kidney injury, the eGFR may not accurately reflect actual GFR. Performed By: #### 2 4323-8 #### [facility] CLIA [id number] [address] [place] [address] [place] Glucose [Mass/Vol] 83 mg/dL Normal 74-99 [facility] Comment on above: Order Comment: Cathleen mosqueda Type: BLOOD SPECIMEN Ordering Facility: [facility] Address: [address] [place] [address] Result Comment: The [place] Diabetes Association (ADA) provides guidance for cutoff values for fasting glucose and random glucose. The ADA defines fasting as no caloric intake for at least 8 hours. Fasting plasma glucose results between 100 to 125 mg/dL indicate increased risk for diabetes (prediabetes). Fasting plasma glucose results greater than or equal to 126 mg/dL meet the criteria for diagnosis of diabetes. In the absence of unequivocal hyperglycemia, results should be confirmed by repeat testing. In a patient with classic symptoms of hyperglycemia or hyperglycemic crisis, random plasma glucose results greater than or equal to 200 mg/dL meet the criteria for diagnosis of diabetes. Reference: Standards of Medical Care in Diabetes 2016, [place] [employer] Association. Diabetes Care. 2016.39(Suppl 1). Performed By: #### 2 4323-8 #### [facility] CLIA [id number] [address] [place] [address] [place] Potassium [Moles/Vol] 3.4 mmol/L Low 3.7-5.1 [facility] Comment on above: Order Comment: Cathleen mosqueda Type: BLOOD SPECIMEN Ordering Facility: [facility] Address: [address] [place] [place] [id number] Performed By: #### 2 4323-8 #### [facility] CLIA [id number] [address] [place] [id number] [place] Protein [Mass/Vol] 6.8 g/dL Normal 6.3-8.0 [facility] Comment on above: Order Comment: Speci men Type: BLOOD SPECIMEN Ordering Facility: [facility] Address: [address] [place] [address] Performed By: #### 2 4323-8 #### [facility] CLIA [id number] [address] [place] [id number] [place] Sodium [Moles/Vol] 144 mmol/L Normal 136-144 [facility] Comment on above: Order Comment: Speci men Type: BLOOD SPECIMEN Ordering Facility: [facility] Address: [address] [place] [address] Performed By: #### 2 4323-8 #### [facility] CLIA [id number] [address] [place], [place] [address] [place] Urea nitrogen [Mass/Vol] 18 mg/dL Normal 7-21 [facility] Comment on above: Order Comment: Speci men Type: BLOOD SPECIMEN Ordering Facility: [facility] Address: [address] [place] [address] Performed By: #### 2 4323-8 #### [facility] CLIA [id number] [facility] [place] [id number] [place] POCT UA Automated manually r esultedOrdered By: Raysa Thomas on 08-31-2023 Appearance (U) Clear Clear [facility] Glucose Test strip (U) [Mass/Vol] Negative NEGATIVE mg/dl [facility] Hemoglobin Ql (U) TRACE-Lysed Abnormal NEGATIVE [facility] Interpretation and review of laboratory results Abnormal [facility] Leukocyte esterase Test strip Ql (U) Negative NEGATIVE [facility] Nitrite Ql (U) Negative NEGATIVE [facility] pH (U) 5.5 [pH] No Reference Range Established [facility] POC Bilirubin, Urine SMALL (1+) Abnormal NEGATIVE [facility] P[facility] Color, Urine [place] Abnormal Straw, Yellow, Light-Yellow [facility]OC Ketones, Urine TRACE Abnormal NEGATIVE mg/dl [facility] POC Protein, Urine 30 (1+) NEGATIVE, 30 (1+) mg/dl [facility] POC Specific [place], Urine >=1.030 1.005 - 1.[address] [facility] POC Urobilinogen, Urine 1.0 0.2, 1.0 EU/DL [facility] CHEST 2 VIEW PA AND LATon CHEST 2 VIEW PA AND LAT Patient Name: RAYA DOMINGUEZ STUDY: TH CHEST 2 VIEW PA AND LAT; 02/28/2023 7:18 am INDICATION: cough. COMPARISON: None. ACCESSION NUMBER(S): [id number] ORDERING CLINICIAN: GABRIEL WILSON FINDINGS: No consolidation. No pleural effusion or pneumothorax. Normal heart size. No acute osseous abnormality. Asymmetric elevation of the right hemidiaphragm. Surgical clips in the right upper quadrant of the abdomen. IMPRESSION: No acute cardiopulmonary abnormality. Electronically signed by: JILLIAN SUNSHINE MD [facility] Covid 19 Resultson 3 SARS-CoV-2 (COVID-19) RNA JEREMY+probe Ql (Unsp spec) NEGATIVE COVID-19 Test Coronaviruses are common world-wide and are the cause of many common colds. SARS-COV2 is a new coronavirus that began circulating worldwide in 2019 so we are calling it COVID-19. It has been estimated that four out of five patients with COVID-19 will recover at home without the need for medical attention. Symptoms of COVID-19 may include cough, fever, shortness of breath, loss of taste or smell and other flu-like symptoms including chills, sore muscles, sore throat, and headache. Severe illness is more common in older people and people with other health problems such as high blood pressure, obesity, and immune system problems. If the test is positive, you have COVID-19. You will be contacted by the ordering physicians office and instructed to remain on home isolation, in accordance with CDC guidelines. You may also be contacted by the [facility] to see if any of your close contacts may have been exposed to the virus and need to quarantine. If the test is negative, you likely do not have COVID-19 at this time, but you still may have a different illness that can spread to other people (like Influenza, or the Flu) and could still be at risk for getting COVID-19. We recommend that you stay away from other people to limit the spread of illness until your symptoms are improving and you are fever-free for 24 hours without the use of fever lowering medications such as acetaminophen or ibuprofen. No test is 100% accurate so if you are still concerned you may have COVID-19, talk to your doctor about the need to continue to stay away from others. Medicines Unless your provider told you not to use the following: Acetaminophen (Tylenol and others) is generally safe. Anti-inflammatory medications, such as Ibuprofen (Advil or Motrin) or Naproxen (Aleve) can also be used. Jkqg-fuz-rivzdmj cough and cold medicines can be used according to the instructions on the package. Some jvgg-kpc-xaupeyc medicines also contain acetaminophen. Make sure you are not taking more than your recommended dose. For those not hospitalized, there is no specific treatment available for this illness. Antibiotics do not treat Coronaviruses. Follow-Up Follow up with your doctor by scheduling a virtual visit or consider follow-up at one of our urgent care fever clinics. If you are having difficulty breathing, or are very weak and having difficulty standing, this is a medical emergency. Call 911 or have someone take you to the nearest emergency room immediately. If possible, wear a facemask. Additional guidance from the CDC for patients who tested POSITIVE for COVID-19 How to isolate: Isolate yourself in a specific room at home and limit your contact with others. Use a separate bathroom from other members of the household, when possible. Leave home only to get essential medical care. Do not go to work, school or public areas. Avoid using public transportation, ride-sharing, or taxis. Restrict contact with pets and other animals. If you must care for your pet or be around animals while you are sick, wash your hands before and after your interaction and wear a facemask. Make sure that shared spaces in the home have good airflow, such as by an air conditioner or an opened window, weather permitting. Personal Hygiene Procedures: Wear a face mask when in the same room as other people or pets. If a face mask interferes with your breathing, others should wear a mask when sharing space with you. Frequent hand-washing: wash your hands with soap and water for at least 20 seconds. If soap and water are not available, use alcohol-based hand manager agricultural. Avoid touching your eyes, nose, and mouth with unwashed hands. Household Hygiene Procedures: Avoid sharing personal household items such as dishes, glassware, cups, eating utensils, towels or bedding with other people or pets in your home. After use, these items should be washed with soap and hot water. Disinfect all high-touch surfaces every day with antibacterial cleaning solutions such as Lysol wipes, bleach, cleansers, etc. High-touch surfaces include tabletops, doorknobs, bathroom fixtures, toilets, phones, keyboards, tablets and bedside tables. Immediately clean any surfaces that may have blood, poop or body fluids on them, using antibacterial cleaning solutions such as Lysol wipes, bleach, cleansers, etc. If clothing or bedding come into contact with blood, poop or body fluids, they should be washed immediately. Follow the directions on the laundry detergent and clothing labels but hot water is recommended when possible. Stopping home isolation precautions: If possible, consult your doctor before stopping home isolation precautions. According to the CDC, you can discontinue home isolation precautions when you have met both of these criteria: Your fever and respiratory symptoms have been gone for 24 tona (more content not included)... Normal [facility] INFLUENZA A/B, COVID 2019 PC R,SYMPTOMATICon 01-20-2023 INFLUENZA A, PCR Not detected Normal Not Detected [facility] Comment on above: Result Comment: Resp iratory virus testing is performed routinely by PCR for Influenza A/B and RSV. If Influenza and RSV PCR are negative, testing for parainfluenza 1,2,3 viruses and adenovirus is routinely performed for oncology inpatients and intensive care unit patients at [facility] and is available on request on other patients by calling Laboratory Client Services at [phone]. Not Detected results do not preclude Influenza A/B or RSV infections since the adequacy of sample collection or low viral burden may impact the clinical sensitivity of this test method. Performed By: #### C OINP #### [facility] [facility] [address] [place] [address] INFLUENZA B, PCR Not detected Normal Not Detected [facility] Comment on above: Result Comment: Resp iratory virus testing is performed routinely by PCR for Influenza A/B and RSV. If Influenza and RSV PCR are negative, testing for parainfluenza 1,2,3 viruses and adenovirus is routinely performed for oncology inpatients and intensive care unit patients at [facility] and is available on request on other patients by calling Laboratory Client Services at [phone] Not Detected results do not preclude Influenza A/B or RSV infections since the adequacy of sample collection or low viral burden may impact the clinical sensitivity of this test method. Performed By: #### C OINP #### [facility] [address] [place] [address] SARS-CoV-2 (COVID-19) RNA JEREMY+probe Ql (Unsp spec) Not detected Normal Not Detected [facility] Comment on above: Result Comment: . This assay is designed to detect the ORF1a/b and E genes of SARS-CoV-2 via nucleic acid amplification. A Not Detected result does not preclude 2019-nCoV infection since the adequacy of sample collection and/or low viral burden may result in presence of viral nucleic acids below the clinical sensitivity of this test method. Fact sheet for providers: https://www.fda.gov/media/093587/download Fact sheet for patients: https://www.fda.gov/media/604596/download This test has received FDA Emergency Use Authorization (EUA) and has been verified for use by [facility] ([facility]). This test is only authorized for the duration of time that circumstances exist to justify the authorization of the emergency use of in vitro diagnostic tests for the detection of SARS-CoV-2 virus and/or diagnosis of COVID-19 infection under section 564(b)(1) of the Act, 21 U.S.C. 360bbb-3(b)(1), unless the authorization is terminated or revoked sooner. [facility] is certified under CLIA-88 as qualified to perform high complexity testing. Testing is performed in the [facility] laboratories located at [address] [place] [id number]. Performed By: #### C OINP #### [facility] [address] [place] [address] INFLUENZA A/B, COVID 2019 PC R,SYMPTOMATICon 01-19-2023 Lab Specimen Source Nasal, Nasopharyngeal Normal [facility] Comment on above: Performed By: #### C OINP #### [facility] [address] [place] [id number] INFLUENZA A/B, COVID 2019 PCR,SYMPTOMATIC Not detected See Below [facility] Work Phone: Comment on above: Reference Range: Not Detected.This assay is designed to detect the ORF1a/b and E genes of SARS-CoV-2 via nucleic acid amplification. A Not Detected result does not preclude 2019-nCoV infection since the adequacy of sample collection and/or low viral burden may result in presence of viral nucleic acids below the clinical sensitivity of this test method. Fact sheet for providers: https://www.fda.gov/media/216581/download Fact sheet for patients: https://www.fda.gov/media/490677/download This test has received FDA Emergency Use Authorization (EUA) and has been verified for use by [facility] ([facility]). This test is only authorized for the duration of time that circumstances exist to justify the authorization of the emergency use of in vitro diagnostic tests for the detection of SARS-CoV-2 virus and/or diagnosis of COVID-19 infection under section 564(b)(1) of the Act, 21 U.S.C. 360bbb-3(b)(1), unless the authorization is terminated or revoked sooner.[facility] is certified under CLIA-88 as qualified to perform high complexity testing. Testing is performed in the [facility] laboratories located at [address] [place] [id number]. Reference Range: Not Detected Respiratory virus testing is performed routinely by PCR for Influenza A/B and RSV. If Influenza and RSV PCR are negative, testing for parainfluenza 1,2,3 viruses and adenovirus is routinely performed for oncology inpatients and intensive care unit patients at [facility] and is available on request on other patients by calling Laboratory Client Services at [phone] Not Detected results do not preclude Influenza A/B or RSV infections since the adequacy of sample collection or low viral burden may impact the clinical sensitivity of this test method. SOURCE: Nasal, Nasop haryngealReference Range: Not Detected Respiratory virus testing is performed routinely by PCR for Influenza A/B and RSV. If Influenza and RSV PCR are negative, testing for parainfluenza 1,2,3 viruses and adenovirus is routinely performed for oncology inpatients and intensive care unit patients at [facility] and is available on request on other patients by calling Laboratory Client Services at [phone]. Not Detected results do not preclude Influenza A/B or RSV infections since the adequacy of sample collection or low viral burden may impact the clinical sensitivity of this test method. Office Visit (Primary Care T xt/Forms)on 01-19-2023 Follow-up visit Diagnoses/Problems Assessed Acute pharyngitis (462) (J02.9) Non-recurrent acute suppurative otitis media of left ear without spontaneous rupture of tympanic membrane (382.00) (H66.002) Class 2 obesity with body mass index (BMI) of 38.0 to 38.9 in adult (278.00,V85.38) (E66.9,Z68.38) Orders Acute pharyngitis, Non-recurrent acute suppurative otitis media of left ear without spontaneous rupture of tympanic membrane INFLUENZA A/B, COVID 2018 PCR,SYMPTOMATIC; Status:Active; Requested for:19Jan2023; Non-recurrent acute suppurative otitis media of left ear without spontaneous rupture of tympanic membrane Start: Cefuroxime Axetil 500 MG Oral Tablet; TAKE 1 TABLET EVERY 12 HOURS DAILY Start: predniSONE 20 MG Oral Tablet; TAKE 2 TABLET Daily Provider Impressions Provider Impressions Free Text Note Form: Prednisone 40 mg by mouth daily x5 days Check for COVID influenza A/B Ceftin 500 mg by mouth twice a day x7 days Chief Complaint L EARACHE , SORE THROAT , COUGH, CONGESTION X MONDAY History of Present Illness Raya comes to office for c/o uri sx. Developed cough/ST/sinus congestion AND L ear pain on Monday. Testes self for Covid yest AND was negative. Cough productive: clear in color. no ill exposures No fever/rash/abd pain, + chilling, headache on monday. + diarrhea over weekend. + body aches when upright feels dizzy/lightheaded taking fluids well, not much of an appetite OTC: mucinex/ Coricidin Review of Systems Constitutional: chills, but no fever. ENT: ear pain, sore throat, nasal congestion and sinus pressure. Cardiovascular: no chest pain and no shortness of breath. Respiratory: cough and coughing up sputum, but no wheezing. Neurological: headache and dizziness. Active Problems Problems Elevated liver enzymes (790.5) (R74.8) Encounter for immunization (V03.89) (Z23) Encounter for screening mammogram for malignant neoplasm of breast (V76.12) (Z12.31) Fatty liver (571.8) (K76.0) Hypertension (401.9) (I10) Kidney stone (592.0) (N20.0) FARRIS (nonalcoholic steatohepatitis) (571.8) (K75.81) Obesity (278.00) (E66.9) Research study patient (V70.7) (Z00.6) Thrombocythemia (238.71) (D75.839) Past Medical History Problems Fatty liver (571.8) (K76.0) History of mammogram (V15.89) (Z92.89) Surgical History Problems History of Section History of Cholecystectomy History of Complete Colonoscopy History of Diagnostic Esophagogastroduodenoscopy History of Esophagogastroduodenoscopy History of Exploratory Laparotomy History of Tonsillectomy With Adenoidectomy Family History Mother Family history of asthma (V17.5) (Z82.5) Family history of congestive heart failure (V17.49) (Z82.49) Family history of diabetes mellitus (V18.0) (Z83.3) Father Family history of hypertension (V17.49) (Z82.49) Family history of lung cancer (V16.1) (Z80.1) Brother Family history of myocardial infarction (V17.3) (Z82.49) Social History Problems Caffeine use (V49.89) (Z78.9) Consumes alcohol occasionally (V49.89) (Z78.9) Does not use illicit drugs (V49.89) (Z78.9) Has 2 children No advance directives (V49.89) (Z78.9) Non-smoker (V49.89) (Z78.9) Current Meds Medication NameInstruction Albuterol AERS Aspirin 325 MG Oral Tablet Delayed ReleaseTake 1 tablet daily Hydrea 500 MG Oral CapsuleTAKE 1 CAPSULE ONCE DAILY. Losartan Potassium-HCTZ 50-12.5 MG Oral TabletTAKE 1 TABLET DAILY. Allergies Medication Ultram Vitals Vital Signs Recorded: [id number] 10:25AM Heart Rate: 92 Systolic: 128 Diastolic: 86 Height: 5 ft 4 in Weight: 223 lb BMI Calculated: 38.28 kg/m2 BSA Calculated: 2.05 Tobacco Use: b) No PHQ-2 #1. Over the last 2 weeks have you felt down, depressed or hopeless? (If yes, answer PHQ-9 below): No PHQ-2 #2. Over the last 2 weeks have you felt little interest or pleasure in doing things? (If yes, answer PHQ-9 below): No Falls Screening (Age 18+): a) No falls within the last year O2 Saturation: 95 Physical Exam Constitutional - Well developed, well nourished, well hydrated and no acute distress. Vital signs reviewed. Ears, Nose, Mouth, and Throat - No nasal discharge. External ears without deformities. Otoscopic examination: Abnormal. The right tympanic membrane was not red. The left tympanic membrane was red, but had no perforation. Internal nose without abnormalities. Oropharynx: Abnormal. The posterior pharynx was erythematous. Neck - Full range of motion. No significant adenopathy. Pulmonary - No grunting, flaring or retractions. No rales or wheezing. Good air exchange. Cardiovascular - Regular rate and rhythm. No significant murmur. Skin - No significant rash or lesions. Signatures Electronically signed by : Ness Steele APRN-BARON; Jan 19 2023 12:02PM EST (Author) Normal [employer] Tobacco Screening.on 023 Adult depression screening assessment No [facility] Work Phone: Fall risk assessment a) No falls within the last year [facility] Work Phone: Tobacco use status [facility] b) No [facility] Work Phone: Office Visit (Primary Care T xt/Forms)on 08-02-2022 Follow-up visit Diagnoses/Problems Health Maintenance/Risks Encounter for preventive health examination (V70.0) (Z00.00) Assessed Hypertension (401.9) (I10) FARRIS (nonalcoholic steatohepatitis) (571.8) (K75.81) Orders Encounter for screening mammogram for malignant neoplasm of breast Mamm - Screening Mammogram w/ Tomosynthesis; Status:Hold For - Scheduling; Requested for:[id number]; Radiologist to Determine Optimal Study : Y What are the patient's signs and symptoms ? : Annual Screening Mammogram Hypertension Renew: Losartan Potassium-HCTZ 50-12.5 MG Oral Tablet; TAKE 1 TABLET DAILY Patient Discussion/Summary 6 month appointment. Chief Complaint 6 mo fu History of Present Illness Since the last office visit there have been no interval operations, hospitalizations, important illnesses or injuries. [facility] heme rviewed HTN-Takes and tolerates meds without side effects. rare alcohol. no tobacco. no exercise. low salt. Reviewed recommendation for 150 minutes of exercise per week including 2 days of weight training if over age 50 farris missed last appt , lft areacceptable, rev wt gain Review of Systems General-no fatigue weight to within 10 pounds ENT no problems with vision swallowing Cardiac no chest pains palpitations change in exercise tolerance or capacity Pulmonary no cough shortness of breath GI no heartburn or abdominal pain Musculoskeletal hips knees elbows joint pains, no rx otcs. Active Problems Problems Elevated liver enzymes (790.5) (R74.8) Encounter for immunization (V03.89) (Z23) Encounter for screening mammogram for malignant neoplasm of breast (V76.12) (Z12.31) Fatty liver (571.8) (K76.0) Hypertension (401.9) (I10) Kidney stone (592.0) (N20.0) FARRIS (nonalcoholic steatohepatitis) (571.8) (K75.81) Obesity (278.00) (E66.9) Research study patient (V70.7) (Z00.6) Thrombocythemia (238.71) (D75.839) Past Medical History Problems Fatty liver (571.8) (K76.0) History of mammogram (V15.89) (Z92.89) Surgical History Problems History of Section History of Cholecystectomy History of Complete Colonoscopy History of Diagnostic Esophagogastroduodenoscopy History of Esophagogastroduodenoscopy History of Exploratory Laparotomy History of Tonsillectomy With Adenoidectomy Family History Mother Family history of asthma (V17.5) (Z82.5) Family history of congestive heart failure (V17.49) (Z82.49) Family history of diabetes mellitus (V18.0) (Z83.3) Father Family history of hypertension (V17.49) (Z82.49) Family history of lung cancer (V16.1) (Z80.1) Brother Family history of myocardial infarction (V17.3) (Z82.49) Social History Problems Caffeine use (V49.89) (Z78.9) Consumes alcohol occasionally (V49.89) (Z78.9) Does not use illicit drugs (V49.89) (Z78.9) Has 2 children No advance directives (V49.89) (Z78.9) Non-smoker (V49.89) (Z78.9) Current Meds Medication NameInstruction Albuterol AERS Aspirin 325 MG Oral Tablet Delayed ReleaseTake 1 tablet daily Hydrea 500 MG Oral CapsuleTAKE 1 CAPSULE ONCE DAILY. Losartan Potassium-HCTZ 50-12.5 MG Oral TabletTAKE 1 TABLET DAILY. Allergies Medication Ultram Vitals Vital Signs Recorded: 02Aug2022 08:10AM Heart Rate: 72 Systolic: 122 Diastolic: 82 Height: 5 ft 4 in Weight: 225 lb 4 oz BMI Calculated: 38.66 kg/m2 BSA Calculated: 2.06 Tobacco Use: b) No Falls Screening (Age 18+): b) One or more falls in the last year O2 Saturation: 97 Physical Exam General: Alert, No acute distress. Appears stated age Eye: Pupils are equal, round and reactive to light, Extraocular movements are intact, Normal conjunctiva. Neck: Supple, Non-tender, No carotid bruit, No jugular venous distention, No lymphadenopathy, No thyromegaly. Respiratory: Lungs are clear to auscultation, Respirations are non-labored, Breath sounds are equal. Cardiovascular: Normal rate, Regular rhythm, No murmur. Gastrointestinal: Soft, Non-tender, No organomegaly. No solid or pulsatile mass Integumentary: Warm, Dry. No concerning lesions on exposed areas Neurologic: Alert, Oriented. Gross and fine motor intact, CN 2-12 intact Psychiatric: Cooperative, Appropriate mood AND affect. 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 Conclusions * No evidence of deep or superficial vein thrombosis in the left lower extremity. Risk Factors Patient has a history of hypertension. . 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 Conclusions * No evidence of deep or superficial vein thrombosis in the left lower extremity. Risk Factors Patient has a history of hypertension. . Report Signatures Finalized by MARA Charles DO on 06/13/2022 04:44 PM Dictated by: JULIANNA ALLISON III on MonJun 13, 2022 4:45:09 PM EDT Transcribed by: JULIANNA ALLISON III on MonJun 13, 2022 4:45:09 PM EDT Finalized by: JULIANNA ALLISON III on MonJun 13, 2022 4:45:09 PM EDT Normal [facility] Ambulatory Office Visit (Primary Care T xt/Forms)on 01-27-2022 Follow-up visit Diagnoses/Problems Assessed Fatty liver (571.8) (K76.0) Hypertension (401.9) (I10) Thrombocythemia (238.71) (D75.839) Patient Discussion/Summary 6 month appointment. follow labs woth h/o to see hep Chief Complaint 6 MO FU History of Present Illness Since the last office visit there have been no interval operations, hospitalizations, important illnesses or injuries. HTN-Takes and tolerates meds without side effects. No alcohol. no tobacco. no exercise. low salt. Reviewed recommendation for 150 minutes of exercise per week including 2 days of weight training if over age 50. nafld- stalelfts in may, to see hepa ET- sees h/o q3m and labs current had earache a co weeks ago, still painful to a degree Review of Systems General-no fatigue weight to within 10 pounds ENT no problems with vision swallowing Cardiac no chest pains palpitations change in exercise tolerance or capacity Pulmonary no cough shortness of breath GI no heartburn or abdominal pain Musculoskeletal no joint pains Active Problems Problems Elevated liver enzymes (790.5) (R74.8) Encounter for immunization (V03.89) (Z23) Encounter for screening mammogram for malignant neoplasm of breast (V76.12) (Z12.31) Fatty liver (571.8) (K76.0) Hypertension (401.9) (I10) Kidney stone (592.0) (N20.0) FARRIS (nonalcoholic steatohepatitis) (571.8) (K75.81) Obesity (278.00) (E66.9) Research study patient (V70.7) (Z00.6) Thrombocythemia (238.71) (D75.839) Past Medical History Problems Fatty liver (571.8) (K76.0) History of mammogram (V15.89) (Z92.89) Surgical History Problems History of Section History of Cholecystectomy History of Complete Colonoscopy History of Diagnostic Esophagogastroduodenoscopy History of Esophagogastroduodenoscopy History of Exploratory Laparotomy History of Tonsillectomy With Adenoidectomy Family History Mother Family history of asthma (V17.5) (Z82.5) Family history of congestive heart failure (V17.49) (Z82.49) Family history of diabetes mellitus (V18.0) (Z83.3) Father Family history of hypertension (V17.49) (Z82.49) Family history of lung cancer (V16.1) (Z80.1) Brother Family history of myocardial infarction (V17.3) (Z82.49) Social History Problems Caffeine use (V49.89) (Z78.9) Consumes alcohol occasionally (V49.89) (Z78.9) Does not use illicit drugs (V49.89) (Z78.9) Has 2 children No advance directives (V49.89) (Z78.9) Non-smoker (V49.89) (Z78.9) Current Meds Medication NameInstruction Albuterol AERS Aspirin 325 MG Oral Tablet Delayed ReleaseTake 1 tablet daily Hydrea 500 MG Oral CapsuleTAKE 1 CAPSULE ONCE DAILY. Losartan Potassium-HCTZ 50-12.5 MG Oral TabletTAKE 1 TABLET DAILY. Allergies Medication Ultram Vitals Vital Signs Recorded: 27Jan2022 08:10AM Heart Rate: 85 Systolic: 130 Diastolic: 74 Height: 5 ft 4 in Weight: 220 lb 3 oz BMI Calculated: 37.8 kg/m2 BSA Calculated: 2.04 Tobacco Use: b) No PHQ-2 #1. Over the last 2 weeks have you felt down, depressed or hopeless? (If yes, answer PHQ-9 below): No PHQ-2 #2. Over the last 2 weeks have you felt little interest or pleasure in doing things? (If yes, answer PHQ-9 below): No Fall Screening: b) One or more falls in the last year O2 Saturation: 97 Physical Exam General: Alert, No acute distress. Appears stated age Eye: Pupils are equal, round and reactive to light, Extraocular movements are intact, Normal conjunctiva. Neck: Supple, Non-tender, No carotid bruit, No jugular venous distention, No lymphadenopathy, No thyromegaly. Respiratory: Lungs are clear to auscultation, Respirations are non-labored, Breath sounds are equal. Cardiovascular: Normal rate, Regular rhythm, No murmur. Gastrointestinal: Soft, Non-tender, No organomegaly. No solid or pulsatile mass Integumentary: Warm, Dry. No concerning lesions on exposed areas Neurologic: Alert, Oriented. Gross and fine motor intact, CN 2-12 intact Psychiatric: Cooperative, Appropriate mood AND affect. Results/Data on file labs Signatures Electronically signed by : Gabriel Wilson MD; Jan 27 2022 8:37AM EST (Author) Electronically signed by : Gabriel Wilson MD; Jan 27 2022 8:57AM EST (Author) [facility] Tobacco Screening.on 022 Adult depression screening assessment No [facility] [facility] Work Phone: Fall risk assessment b) One or more falls in the last year [employer] [facility] Work Phone: Tobacco use status CP b) No [employer] [facility] Work Phone: Mamm - Screening Mammogram w / Tomosynthesison 07-29-2021 MG Breast Screening Normal [employer] [facility] Work Phone: Tobacco Screening.on 021 Fall risk assessment a) No falls within the last year [employer] [facility] Work Phone: Tobacco use status CP b) No [employer] [facility] Work Phone: IGP W/hpv Rfx [id number] 09-11 Diagnosis: See Ref Lab Report Normal [facility] Comment on above: Order Comment: Thin Prep. Menopause Performed By: #### 1 [id number] #### [place] [address] Hep Func Panelon 08-26-2019 Albumin [Mass/Vol] 4.4 g/dL Normal 3.4-5.0 [facility] Comment on above: Performed By: #### 2 [id number] #### [place] [address] [place] [address] Albumin/Globulin [Mass ratio] 1.7 {ratio} Normal 1.1-1.9 [facility] Comment on above: Performed By: #### 2 [id number] #### [facility] [address] [place] [address] Alk Phos 67 Int._Unit/L Normal 33-110 [facility] Comment on above: Performed By: #### 2 [id number] #### [place] [address] [place] [address] ALT [Catalytic activity/Vol] 16 Int._Unit/L Normal 7-45 [facility] Comment on above: Performed By: #### 2 [id number] #### SEL[place] [address] [address] AST [Catalytic activity/Vol] 21 Int._Unit/L Normal 9-39 [facility] Comment on above: Performed By: #### 2 [id number] #### SELVIN [address] [address] Bili Direct 0.08 mg/dL Normal 0.00-0.30 [facility] Comment on above: Performed By: #### 2 [id number] #### SELVIN [address] [address] Bili Indirect 0.45 mg/dL Normal [facility] Comment on above: Result Comment: No e stablished ranges available for the indirect bilirubin Performed By: #### 2 [id number] #### [place] [address] [place] [address] Bili Total 0.53 mg/dL Normal 0.00-1.20 [facility] Comment on above: Performed By: #### 2 [id number] #### [facility] [address] [place] [address] Globulin (S) [Mass/Vol] 3.0 g/dL Normal 2.0-4.0 [facility] Comment on above: Performed By: #### 2 [id number] #### [place] [address] [place] [address] Protein [Mass/Vol] 7.0 g/dL Normal 6.4-8.2 [facility] Comment on above: Performed By: #### 2 [id number] #### SELVIN [facility] [place] [address] [place] Mamm Screen w/CAD if perf ormed bilaton 08-07-2019 [place] Mamm Screen w/CAD if performed bilat Exam Date/Time: 08/07/2019 08:02 EDT Reason for Exam: SCREENING;Screening Report STUDY: Digital mammography screening; 08/07/2019 8:02 am ACCESSION NUMBER(S): [id number] ORDERING CLINICIAN: Thuy Villeda INDICATION: Screening. COMPARISON: Comparison is made to prior digital mammograms dated 07/26/2017 and 01/12/2015 FINDINGS: CC and MLO 2D digital mammographic images of the bilateral breasts were obtained. There are areas of scattered fibroglandular tissue. No discrete mass or focal asymmetry is identified. No suspicious microcalcifications or foci of architectural distortion are seen. There has been no significant change. This study was interpreted with CAD. IMPRESSION: No mammographic evidence of malignancy. BI-RADS CATEGORY: Category: 1 - Negative. Recommendation: Normal Interval Follow-up, Over Age 40. Recall Interval: 12 Months. Breast Density: Scattered Fibroglandular Density. FINAL REPORT Dictated: 08/07/2019 8:35 am Kings Ortega MD Signed (Electronic Signature): 08/07/2019 8:35 am Signed by: Kings Ortega MD Technologist: TIARA Assessment: BI-RADS Category 1-Negative Recommendation: Normal interval follow-up Normal [facility] Cyt[facility] 08-05-2019 [facility] Date of Procedure: 08/05/2019 Pathologist: CHRISTOPHER MARIE Date Reported: 08/09/2019 Date Received: 08/06/2019 Submitting Physician: THUY VILLEDA MD FINAL CYTOLOGICAL INTERPRETATION A. THINPREP PAP Cervical / Endocervical Reflex - Ascus only: Specimen Adequacy: SATISFACTORY FOR EVALUATION. Quality Indicator: Absence of endocervical/transformation zone component. Quality Indicator: Partially obscuring inflammation. General Categorization: NEGATIVE FOR INTRAEPITHELIAL LESION OR MALIGNANCY. Descriptive Interpretation: CELLULAR CHANGES CONSISTENT WITH ATROPHY. Electronically Signed Out By [facility], Cytology//MXG By the signature on this report, the individual or group listed as making the Final Interpretation/Diagnosis certifies that they have reviewed this case. Educational Note: Cervical cytology is a screening procedure primarily for squamous cancers and precursors and has associated false-negative and false-positive results as evidenced by published data. Your patient?s test should be interpreted in this context, together with patient?s history and clinical findings. Regular sampling and follow-up of unexplained clinical signs and symptoms are recommended to minimize false negative results. Clinical History Date of Last Menstrual Period: {Not Entered} Menstrual History: Post-menopausal Other Clinical Conditions: Reflex HPV Testing Ordered: Ascus and Above Bloody Prep - Reprocessed with addition of Glacial Acetic Acid Z01.419 Source of Specimen A: THINPREP PAP Cervical / Endocervical Reflex - Ascus only Normal [facility] US Pelvis Non-OB Completeon 05-10-2019 US Pelvis Non-OB Complete Exam Date/Time: 05/09/2019 13:50 EDT Reason for Exam: POST MENOPAUSAL BLEEDING;Other (please specify) Report STUDY: US Pelvis Non-OB Complete; US Transvaginal Non-OB; 05/09/2019 1:50 pm INDICATION: Other (please specify). Postmenopausal bleeding for 3 weeks COMPARISON: Pelvic CT performed 04/21/2016 ACCESSION NUMBER(S): [id number]; [id number] ORDERING CLINICIAN: Thuy Villeda TECHNIQUE: Transabdominal and transvaginal grayscale, color and spectral Doppler ultrasound of the pelvis. FINDINGS: UTERUS: The uterus is normal size, measuring 8.5 x 3.9 x 5.6 cm. There is a centrally oriented hyperechoic mass in the uterine body and fundus which also distorts the right aspect of the uterine contour. This mass demonstrates heterogeneous posterior acoustic shadowing. The mass measures up to 5.3 cm, stable in size and configuration when correlated to the March [address] CT. ENDOMETRIUM: Not definitely demonstrated. RIGHT ADNEXA: Normal size, measuring 1.9 x 0.9 x 1.1 cm. Normal arterial and venous spectral Doppler waveforms. LEFT ADNEXA: Normal size, measuring 1.9 x 0.9 x 1.5 cm. Normal arterial and venous spectral Doppler waveforms. CUL DE SAC: No pelvic free fluid. 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 The endometrium itself is not well seen to be assessed on the current ultrasound. FINAL REPORT Dictated: 05/10/2019 1:51 pm Abraham Murillo MD Signed (Electronic Signature): 05/10/2019 1:51 pm Signed by: Abraham Murillo MD Technologist: ERUM [facility] US Transvaginal Non-OBon US Transvaginal Non-OB Exam Date/Time: 05/09/2019 13:50 EDT Reason for Exam: POST MENOPAUSAL BLEEDING;Other (please specify) Report STUDY: US Pelvis Non-OB Complete; US Transvaginal Non-OB; 05/09/2019 1:50 pm INDICATION: Other (please specify). Postmenopausal bleeding for 3 weeks COMPARISON: Pelvic CT performed 04/21/2016 ACCESSION NUMBER(S): [id number]; [id number] ORDERING CLINICIAN: Thuy Villeda TECHNIQUE: Transabdominal and transvaginal grayscale, color and spectral Doppler ultrasound of the pelvis. FINDINGS: UTERUS: The uterus is normal size, measuring 8.5 x 3.9 x 5.6 cm. There is a centrally oriented hyperechoic mass in the uterine body and fundus which also distorts the right aspect of the uterine contour. This mass demonstrates heterogeneous posterior acoustic shadowing. The mass measures up to 5.3 cm, stable in size and configuration when correlated to the March [address] CT. ENDOMETRIUM: Not definitely demonstrated. RIGHT ADNEXA: Normal size, measuring 1.9 x 0.9 x 1.1 cm. Normal arterial and venous spectral Doppler waveforms. LEFT ADNEXA: Normal size, measuring 1.9 x 0.9 x 1.5 cm. Normal arterial and venous spectral Doppler waveforms. CUL DE SAC: No pelvic free fluid. 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 The endometrium itself is not well seen to be assessed on the current ultrasound. FINAL REPORT Dictated: 05/10/2019 1:51 pm Abraham Murillo MD Signed (Electronic Signature): 05/10/2019 1:51 pm Signed by: Abraham Murillo MD Technologist: [facility] Vital Signs Date Time Vital Sign Value Performing Clinician Facility 05-27-2025 12:41-0400 Body mass index (BMI) [Ratio] 40.33 kg/m2 Jay Rodgers Work Phone: [facility] 05-27-2025 12:41-0400 Body temperature 97 [degF] Jay Rodgers Work Phone: [facility] 05-27-2025 12:41-0400 Body weight 106.5 kg Jay Rodgers Work Phone: [facility] 05-27-2025 12:41-0400 Diastolic blood pressure 86 mm[Hg] Jay Rodgers Work Phone: [facility] 05-27-2025 12:41-0400 Heart rate 74 /min Jay Rodgers Work Phone: [facility] 05-27-2025 12:41-0400 Respiratory rate 20 /min Jay Rodgers Work Phone: [facility] 05-27-2025 12:41-0400 SaO2% (BldA) [Mass fraction] 98 % Jay Rodgers Work Phone: [facility] 05-27-2025 12:41-0400 Systolic blood pressure 133 mm[Hg] Jay Rodgers Work Phone: [facility] 04-11-2025 08:25-0400 Body height 162.6 cm Gabriel Wilson MD Work Phone: [facility] 04-11-2025 08:25-0400 Body mass index (BMI) [Ratio] 40.06 kg/m2 Gabriel Wilson MD Work Phone: [facility] 04-11-2025 08:25-0400 Body weight 105.87 kg Gabriel Wilson MD Work Phone: [facility] 04-11-2025 08:25-0400 Diastolic blood pressure 78 mm[Hg] Gabriel Wilson MD Work Phone: [facility] 04-11-2025 08:25-0400 Heart rate 84 /min Gabriel Wilson MD Work Phone: [facility] 04-11-2025 08:25-0400 SaO2% (BldA) [Mass fraction] 96 % Gabriel Wilson MD Work Phone: [facility] 04-11-2025 08:25-0400 Systolic blood pressure 118 mm[Hg] Gabriel Wilson MD Work Phone: [facility] 02-25-2025 13:03-0400 Body mass index (BMI) [Ratio] 39.92 kg/m2 Jay Rodgers Work Phone: [facility] 02-25-2025 13:03-0400 Body temperature 98.01 [degF] Jay Rodgers Work Phone: [facility] 02-25-2025 13:03-0400 Body weight 105.4 kg Jay Rodgers Work Phone: [facility] 02-25-2025 13:03-0400 Diastolic blood pressure 88 mm[Hg] Jay Rodgers Work Phone: [facility] 02-25-2025 13:03-0400 Heart rate 77 /min Jay Rodgers Work Phone: [facility] 02-25-2025 13:03-0400 Respiratory rate 16 /min Jay Rodgers Work Phone: [facility] 02-25-2025 13:03-0400 SaO2% (BldA) [Mass fraction] 98 % Jay Rodgers Work Phone: [facility] 02-25-2025 13:03-0400 Systolic blood pressure 139 mm[Hg] Jay Rodgers Work Phone: [facility] 11-26-2024 11:42-0500 Body temperature 98.29 [degF] Tamia Encarnacion APRN.CNP Work Phone: [facility] 11-26-2024 11:42-0500 Diastolic blood pressure 82 mm[Hg] Tamia Encarnacion APRN.BLANKING MACHINE OPERATOR Work Phone: [facility] 11-26-2024 11:42-0500 Heart rate 78 /min Tamia Encarnacion APRN.BLANKING MACHINE OPERATOR Work Phone: [facility] 11-26-2024 11:42-0500 Respiratory rate 16 /min Tamia Encarnacion APRN.BLANKING MACHINE OPERATOR Work Phone: [facility] 11-26-2024 11:42-0500 SaO2% (BldA) [Mass fraction] 98 % Tamia Encarnacion MONITORING AND EVALUATION ADVISOR.BLANKING MACHINE OPERATOR Work Phone: [facility] 11-26-2024 11:42-0500 Systolic blood pressure 125 mm[Hg] Tamia Encarnacion APRN.BLANKING MACHINE OPERATOR Work Phone: [facility] 11-26-2024 11:41-0500 Body mass index (BMI) [Ratio] 39.46 kg/m2 Tamia Encarnacion APRN.BLANKING MACHINE OPERATOR Work Phone: [facility] 11-26-2024 11:41-0500 Body weight 104.2 kg Tamia Encarnacion APRN.BLANKING MACHINE OPERATOR Work Phone: [facility] 08-30-2024 08:50-0400 Body height 162.6 cm Gabriel Wilson MD Work Phone: [facility] 08-30-2024 08:50-0400 Body mass index (BMI) [Ratio] 39.07 kg/m2 Gabriel Wilson MD Work Phone: [facility] 08-30-2024 08:50-0400 Body weight 103.24 kg Gabriel Wilson MD Work Phone: [facility] 08-30-2024 08:50-0400 Diastolic blood pressure 80 mm[Hg] Gabriel Wilson MD Work Phone: [facility] 08-30-2024 08:50-0400 Heart rate 86 /min Gabriel Wilson MD Work Phone: [facility] 08-30-2024 08:50-0400 SaO2% (BldA) [Mass fraction] 96 % Gabriel Wilson MD Work Phone: [facility] 08-30-2024 08:50-0400 Systolic blood pressure 120 mm[Hg] Gabriel Wilson MD Work Phone: [facility] 08-28-2024 13:21-0400 Body height 162.5 cm Jay Rodgers Work Phone: [facility] 08-28-2024 13:21-0400 Body mass index (BMI) [Ratio] 39.2 kg/m2 Jay Rodgers Work Phone: [facility] 08-28-2024 13:21-0400 Body temperature 98.01 [degF] Jay Rodgers Work Phone: [facility] 08-28-2024 13:21-0400 Body weight 103.5 kg Jay Rodgers Work Phone: [facility] 08-28-2024 13:21-0400 Diastolic blood pressure 82 mm[Hg] Jay Rodgers Work Phone: [facility] 08-28-2024 13:21-0400 Heart rate 78 /min Jay Rodgers Work Phone: [facility] 08-28-2024 13:21-0400 Respiratory rate 16 /min Jay Rodgers Work Phone: [facility] 08-28-2024 13:21-0400 SaO2% (BldA) [Mass fraction] 98 % Jay Rodgers Work Phone: [facility] 08-28-2024 13:21-0400 Systolic blood pressure 118 mm[Hg] Jay Rodgers Work Phone: [facility] 05-20-2024 09:01-0400 Body height 162.5 cm Jay Rodgers Work Phone: [facility] 05-20-2024 09:01-0400 Body mass index (BMI) [Ratio] 38.67 kg/m2 Jay Rodgers Work Phone: [facility] 05-20-2024 09:01-0400 Body temperature 97.39 [degF] Jay Rodgers Work Phone: [facility] 05-20-2024 09:01-0400 Body weight 102.1 kg Jay Rodgers Work Phone: [facility] 05-20-2024 09:01-0400 Diastolic blood pressure 74 mm[Hg] Jay Rodgers Work Phone: [facility] 05-20-2024 09:01-0400 Heart rate 73 /min Jay Rodgers Work Phone: [facility] 05-20-2024 09:01-0400 Respiratory rate 16 /min Jay Rodgers Work Phone: [facility] 05-20-2024 09:01-0400 SaO2% (BldA) [Mass fraction] 97 % Jay Rodgers Work Phone: [facility] 05-20-2024 09:01-0400 Systolic blood pressure 109 mm[Hg] Jay Rodgers Work Phone: [facility] 03-01-2024 09:52-0400 Body height 162.6 cm Gabriel Wilson MD Work Phone: [facility] 03-01-2024 09:52-0400 Body mass index (BMI) [Ratio] 38.48 kg/m2 Gabriel Wilson MD Work Phone: [facility] 03-01-2024 09:52-0400 Body weight 101.7 kg Gabriel Wilson MD Work Phone: [facility] 03-01-2024 09:52-0400 Diastolic blood pressure 76 mm[Hg] Gabriel Wilson MD Work Phone: [facility] 03-01-2024 09:52-0400 Heart rate 81 /min Gabriel Wilson MD Work Phone: [facility] 03-01-2024 09:52-0400 SaO2% (BldA) [Mass fraction] 98 % Gabriel Wilson MD Work Phone: [facility] 03-01-2024 09:52-0400 Systolic blood pressure 140 mm[Hg] Gabriel Wilson MD Work Phone: [facility] 02-12-2024 15:42-0400 Body temperature 97.7 [degF] Jay Rodgers Work Phone: [facility] 02-12-2024 15:42-0400 Body weight 100.7 kg Jay Rodgers Work Phone: [facility] 02-12-2024 15:42-0400 Diastolic blood pressure 83 mm[Hg] Jay Rodgers Work Phone: [facility] 02-12-2024 15:42-0400 Heart rate 99 /min Jay Rodgers Work Phone: [facility] 02-12-2024 15:42-0400 Respiratory rate 16 /min Jay Rodgers Work Phone: [facility] 02-12-2024 15:42-0400 SaO2% (BldA) [Mass fraction] 96 % Jay Rodgers Work Phone: [facility] 02-12-2024 15:42-0400 Systolic blood pressure 126 mm[Hg] Jay Rodgers Work Phone: [facility] 08-31-2023 08:00-0400 Body height 162.6 cm Gabriel Wilson MD Work Phone: [facility] 08-31-2023 08:00-0400 Body mass index (BMI) [Ratio] 38.24 kg/m2 Gabriel Wilson MD Work Phone: [facility] 08-31-2023 08:00-0400 Body weight 101.06 kg Gabriel Wilson MD Work Phone: [facility] 08-31-2023 08:00-0400 Diastolic blood pressure 62 mm[Hg] Gabriel Wilson MD Work Phone: [facility] 08-31-2023 08:00-0400 Heart rate 92 /min Gabriel Wilson MD Work Phone: [facility] 08-31-2023 08:00-0400 SaO2% (BldA) [Mass fraction] 97 % Gabriel Wilson MD Work Phone: [facility] 08-31-2023 08:00-0400 Systolic blood pressure 112 mm[Hg] Gabriel Wilson MD Work Phone: [facility] 07-24-2023 09:04-0400 Body height 162.5 cm Jay Rodgers Work Phone: [facility] 07-24-2023 09:04-0400 Body temperature 97.81 [degF] Jay Rodgers Work Phone: [facility] 07-24-2023 09:04-0400 Body weight 102.15 kg Jay Rodgers Work Phone: [facility] 07-24-2023 09:04-0400 Diastolic blood pressure 94 mm[Hg] Jay Rodgers Work Phone: [facility] 07-24-2023 09:04-0400 Heart rate 67 /min Jay Rodgers Work Phone: [facility] 07-24-2023 09:04-0400 Respiratory rate 16 /min Jay Rodgers Work Phone: [facility] 07-24-2023 09:04-0400 SaO2% (BldA) [Mass fraction] 98 % Jay Rodgers Work Phone: [facility] 07-24-2023 09:04-0400 Systolic blood pressure 163 mm[Hg] Jay Rodgers Work Phone: [facility] 06-30-2023 08:34-0400 Body height 162.5 cm Tamia Encarnacion APRN.CNP Work Phone: [facility] 06-30-2023 08:34-0400 Body temperature 98.01 [degF] Tamia Encarnacion MONITORING AND EVALUATION ADVISOR.BLANKING MACHINE OPERATOR Work Phone: [facility] 06-30-2023 08:34-0400 Body weight 102.6 kg Tamia Encarnacion APRN.BLANKING MACHINE OPERATOR Work Phone: [facility] 06-30-2023 08:34-0400 Diastolic blood pressure 66 mm[Hg] Tamia Encarnacion MONITORING AND EVALUATION ADVISOR.BLANKING MACHINE OPERATOR Work Phone: [facility] 06-30-2023 08:34-0400 Heart rate 77 /min Tamia Encarnacion MONITORING AND EVALUATION ADVISOR.BLANKING MACHINE OPERATOR Work Phone: [facility] 06-30-2023 08:34-0400 Respiratory rate 16 /min Tamia Encarnacion MONITORING AND EVALUATION ADVISOR.BLANKING MACHINE OPERATOR Work Phone: [facility] 06-30-2023 08:34-0400 SaO2% (BldA) [Mass fraction] 97 % Tamia Encarnacion MONITORING AND EVALUATION ADVISOR.BLANKING MACHINE OPERATOR Work Phone: [facility] 06-30-2023 08:34-0400 Systolic blood pressure 126 mm[Hg] Tamia Enacrnacion MONITORING AND EVALUATION ADVISOR.BLANKING MACHINE OPERATOR Work Phone: [facility] 04-06-2023 08:57-0400 Body height 162.5 cm Dylan oTmas MD Work Phone: [facility] 04-06-2023 08:57-0400 Body temperature 98.29 [degF] Dylan Tomas MD Work Phone: [facility] 04-06-2023 08:57-0400 Body weight 102.69 kg Dylan Tomas MD Work Phone: [facility] 04-06-2023 08:57-0400 Diastolic blood pressure 76 mm[Hg] Dylan Tomas MD Work Phone: [facility] 04-06-2023 08:57-0400 Heart rate 90 /min Dylan Tomas MD Work Phone: [facility] 04-06-2023 08:57-0400 Respiratory rate 16 /min Dylan Tomas MD Work Phone: [facility] 04-06-2023 08:57-0400 SaO2% (BldA) [Mass fraction] 95 % Dylan Tomas MD Work Phone: [facility] 04-06-2023 08:57-0400 Systolic blood pressure 116 mm[Hg] Dylan Tomas MD Work Phone: [facility] 01-19-2023 10:25-0500 Body height 162.56 cm Gabriel Braden Dimitrycel Work Phone: [facility] [employer] [facility] Work Phone: 01-19-2023 10:25-0500 Body mass index (BMI) [Ratio] 38.28 kg/m2 Gabriel Braden Stencel Work Phone: [facility] [employer] [facility] Work Phone: 01-19-2023 10:25-0500 Body surface area Derived from formula 2.05 m2 Gabriel Braden Dimitrycel Work Phone: -[employer] [facility] Work Phone: 01-19-2023 10:25-0500 Body weight 101.15 kg Gabriel Ankit Dimitrycel Work Phone: [facility] [employer] [facility] Work Phone: 01-19-2023 10:25-0500 Diastolic blood pressure 86 mm[Hg] Gabriel Braden Stencel Work Phone: [facility] [employer] [facility] Work Phone: 01-19-2023 10:25-0500 Heart rate 92 /min Gabriel Braden Stencel Work Phone: [facility] [employer] [facility] Work Phone: 01-19-2023 10:25-0500 SaO2% (BldA) [Mass fraction] 95 % Gabriel Braden Stencel Work Phone: [facility] Work Phone: 01-19-2023 10:25-0500 Systolic blood pressure 128 mm[Hg] Gabriel Wilson Work Phone: [facility] Work Phone: 01-05-2023 10:25-0500 Body height 162.5 cm Dylan Tomas MD Work Phone: [facility] 01-05-2023 10:25-0500 Body temperature 98.2 [degF] Dylan Tomas MD Work Phone: [facility] 01-05-2023 10:25-0500 Body weight 101.7 kg Dylan Tomas MD Work Phone: [facility] 01-05-2023 10:25-0500 Diastolic blood pressure 79 mm[Hg] Dylan Tomas MD Work Phone: [facility] 01-05-2023 10:25-0500 Heart rate 89 /min Dylan Tomas MD Work Phone: [facility] 01-05-2023 10:25-0500 Respiratory rate 16 /min Dylan Tomas MD Work Phone: [facility] 01-05-2023 10:25-0500 SaO2% (BldA) [Mass fraction] 98 % Dylan Tomas MD Work Phone: [facility] 01-05-2023 10:25-0500 Systolic blood pressure 116 mm[Hg] Dylan Tomas MD Work Phone: [facility] 10-13-2022 13:01-0500 Body temperature 98.01 [degF] Dylan Tomas MD Work Phone: [facility] 10-13-2022 13:01-0500 Body weight 103.15 kg Dylan Tomas MD Work Phone: [facility] 10-13-2022 13:01-0500 Diastolic blood pressure 81 mm[Hg] Dylan Tomas MD Work Phone: [facility] 10-13-2022 13:01-0500 Heart rate 97 /min Dylan Tomas MD Work Phone: [facility] 10-13-2022 13:01-0500 Respiratory rate 16 /min Dylan Tomas MD Work Phone: [facility] 10-13-2022 13:01-0500 SaO2% (BldA) [Mass fraction] 95 % Dylan Tomas MD Work Phone: [facility] 10-13-2022 13:01-0500 Systolic blood pressure 135 mm[Hg] Dylan Tomas MD Work Phone: [facility] 08-02-2022 08:10-0400 Body height 162.56 cm Gabriel Wilson Work Phone: [employer] [facility] Work Phone: 08-02-2022 08:10-0400 Body mass index (BMI) [Ratio] 38.66 kg/m2 Gabriel Wilson Work Phone: [employer] [facility] Work Phone: 08-02-2022 08:10-0400 Body surface area Derived from formula 2.06 m2 Gabriel Wilson Work Phone: -[employer] [facility] Work Phone: 08-02-2022 08:10-0400 Body weight 102.17 kg Gabriel Wilson Work Phone: [employer] [facility] Work Phone: 08-02-2022 08:10-0400 Diastolic blood pressure 82 mm[Hg] Gabriel Wilson Work Phone: [employer] [facility] Work Phone: 08-02-2022 08:10-0400 Heart rate 72 /min Gabriel Braden Steve Work Phone: [facility] Work Phone: 08-02-2022 08:10-0400 SaO2% (BldA) [Mass fraction] 97 % Gabriel Wilson Work Phone: [facility] Work Phone: 08-02-2022 08:10-0400 Systolic blood pressure 122 mm[Hg] Gabriel Ankit Dimitrycel Work Phone: [facility] Work Phone: 07-14-2022 13:02-0400 Body temperature 98.01 [degF] Dylan Tomas MD Work Phone: [facility] 07-14-2022 13:02-0400 Body weight 101.42 kg Dylan Tomas MD Work Phone: [facility] 07-14-2022 13:02-0400 Diastolic blood pressure 82 mm[Hg] Dylan Tomas MD Work Phone: [facility] 07-14-2022 13:02-0400 Heart rate 97 /min Dylan Tomas MD Work Phone: [facility] 07-14-2022 13:02-0400 Respiratory rate 16 /min Dylan Tomas MD Work Phone: [facility] 07-14-2022 13:02-0400 SaO2% (BldA) [Mass fraction] 97 % Dylan Toams MD Work Phone: [facility] 07-14-2022 13:02-0400 Systolic blood pressure 140 mm[Hg] Dylan Tomas MD Work Phone: [facility] 01-27-2022 08:10-0500 Body height 162.56 cm Gabriel Braden Steve Work Phone: [facility] Work Phone: 01-27-2022 08:10-0500 Body mass index (BMI) [Ratio] 37.8 kg/m2 Gabriel Wilson Work Phone: [facility] Work Phone: 01-27-2022 08:10-0500 Body surface area Derived from formula 2.04 m2 Gabriel Wilson Work Phone: [facility] Work Phone: 01-27-2022 08:10-0500 Body weight 99.88 kg Gabriel Wilson Work Phone: [facility] Work Phone: 01-27-2022 08:10-0500 Diastolic blood pressure 74 mm[Hg] Gabriel Wilson Work Phone: [facility] Work Phone: 01-27-2022 08:10-0500 Heart rate 85 /min Gabriel Wilson Work Phone: [facility] Work Phone: 01-27-2022 08:10-0500 SaO2% (BldA) [Mass fraction] 97 % Gabriel Wilson Work Phone: [facility] [employer] [facility] Work Phone: 01-27-2022 08:10-0500 Systolic blood pressure 130 mm[Hg] Gabriel Wilson Work Phone: [facility] Work Phone: 07-15-2021 15:34-0400 Body height 162.56 cm Gabriel Wilson Work Phone: [facility] Work Phone: 07-15-2021 15:34-0400 Body mass index (BMI) [Ratio] 37.67 kg/m2 Gabriel Moraescel Work Phone: [facility] Work Phone: 07-15-2021 15:34-0400 Body surface area Derived from formula 2.03 m2 Gabriel Wilson Work Phone: [facility] Work Phone: 07-15-2021 15:34-0400 Body temperature 97.1 [degF] Gabriel Wilson Work Phone: [facility] Work Phone: 07-15-2021 15:34-0400 Body weight 99.54 kg Gabriel Wilson Work Phone: [facility] Work Phone: 07-15-2021 15:34-0400 Diastolic blood pressure 82 mm[Hg] Gabriel Wilson Work Phone: [facility] [employer] [facility] Work Phone: 07-15-2021 15:34-0400 Heart rate 81 /min Gabriel Wilson Work Phone: [facility] Work Phone: 07-15-2021 15:34-0400 SaO2% (BldA) [Mass fraction] 98 % Gabriel Wilson Work Phone: [facility] [employer] [facility] Work Phone: 07-15-2021 15:34-0400 Systolic blood pressure 132 mm[Hg] Gabriel Wilson Work Phone: [facility] [employer] [facility] Work Phone: 02-03-2020 10:52-0400 BMI (Body Mass Index) 36.73 kg/m2 [facility] NU[facility]EZ[facility] [address] [facility] Work Phone: 02-03-2020 10:52-0400 Body Temperature 98.5 [degF] Osito NU[facility]EZ-[facility]ent[facility] [address] [facility] Work Phone: 02-03-2020 10:52-0400 Body weight 97.07 kg Osito Gholam [facility] [address] [facility] Work Phone: 02-03-2020 10:52-0400 BP Diastolic 86 mm[Hg] Osito Gholam [facility] Work Phone: 02-03-2020 10:52-0400 BP Systolic 127 mm[Hg] Osito Gholam [facility] [facility] Work Phone: 02-03-2020 10:52-0400 BSA (Body Surface Area) 2.01 m2 Osito Gholam [facility] [facility] Work Phone: 02-03-2020 10:52-0400 Height 162.56 cm Osito Gholam [facility] Work Phone: 02-03-2020 10:52-0400 Pulse (Heart Rate) 72 /min Osito Gholam [facility] Work Phone: 02-03-2020 10:52-0400 Respiratory Rate 16 /min Osito Gholam [facility] Work Phone: Encounters Encounter Date Encounter Type Care Provider Facility Start: 10-06-2025 End: 10-06-2025 ambulatory GABRIEL WILSON Facility:[facility] Start: 05-27-2025 End: 05-27-2025 Telephone encounter Jay Rodgers Work Phone: Hematology/Oncology Start: 05-27-2025 End: 05-27-2025 Patient encounter procedure Jay Rodgers Work Phone: Hematology/Oncology Start: 05-27-2025 End: 05-27-2025 ambulatory Jay Rodgers Work Phone: Hematology/Oncology Comment on above: Thrombocythemia (Edith shantanu Dx); Macrocytosis without anemia Start: 04-18-2025 End: 04-18-2025 ambulatory [facility] Start: 04-11-2025 End: 04-11-2025 Office outpatient visit 15 minutes Gabriel Wilson MD Work Phone: [facility] Comment on above: Breast cancer screen ing by mammogram (Primary Dx); Primary hypertension; Thrombocythemia; Essential (hemorrhagic) thrombocythemia; Screen for colon cancer Start: 04-11-2025 End: 04-11-2025 ambulatory [facility] Amb[facility] Start: 02-25-2025 End: 02-25-2025 Patient encounter procedure Jay Rodgers Work Phone: Hematology/Oncology Start: 02-25-2025 End: 02-25-2025 ambulatory Jay Rodgers Work Phone: Hematology/Oncology Comment on above: Thrombocythemia (Edith shantanu Dx); Macrocytosis without anemia Start: 01-24-2025 End: 01-27-2025 Refill Jay Rodgers Work Phone: Hematology/Oncology Comment on above: Refill Request Start: 12-26-2024 End: 12-27-2024 Refill Tamia Encarnacion MONITORING AND EVALUATION ADVISOR.BLANKING MACHINE OPERATOR Work Phone: Hematology/Oncology Comment on above: Refill Request Start: 11-28-2024 End: 12-02-2024 Telephone encounter Diamond Georges RN Hematology/Oncology Comment on above: Results (Lab results faxed to pcp and script sent to Dr Rodgers for sig. AA) Refill Request Start: 11-26-2024 End: 11-26-2024 Office outpatient visit 15 minutes Tamia Encarnacion MONITORING AND EVALUATION ADVISOR.BLANKING MACHINE OPERATOR Work Phone: Hematology/Oncology Comment on above: Thrombocythemia (Edith shantanu Dx); Macrocytosis without anemia; Encounter for monitoring of hydroxyurea therapy Start: 11-26-2024 End: 11-26-2024 ambulatory GABRIEL WILSON Facility:[facility] Start: 10-04-2024 End: 10-07-2024 Refill Jay Rodgers Work Phone: Hematology/Oncology Comment on above: Refill Request Start: 08-30-2024 End: 08-30-2024 Office outpatient visit 25 minutes Gabriel Wilson MD Work Phone: [facility] Comment on above: Primary hypertension ; Thrombocythemia; Wheezing-associated respiratory infection (WARI) Start: 08-30-2024 End: 08-30-2024 ambulatory GABRIEL WILSON [facility] Ambulatory Start: 08-28-2024 End: 08-28-2024 ambulatory Jay B Rodgers Work Phone: Hematology/Oncology Comment on above: Thrombocythemia (Edith shantanu Dx); Macrocytosis without anemia Start: 08-28-2024 End: 08-28-2024 Patient encounter procedure Jay B Rodgers Work Phone: Hematology/Oncology Start: 05-20-2024 End: 05-20-2024 ambulatory Jay B Rodgers Work Phone: Hematology/Oncology Comment on above: Thrombocythemia (Edith shantanu Dx); Encounter for monitoring of hydroxyurea therapy Start: 05-20-2024 End: 05-20-2024 Patient encounter procedure Jay B Rodgers Work Phone: Hematology/Oncology Start: 03-25-2024 Refill Jay B Rodgers Work Phone: Hematology/Oncology Comment on above: Refill Request Start: 03-01-2024 End: 03-01-2024 Office outpatient visit 25 minutes Gabriel Wilson MD Work Phone: [facility] Comment on above: Wheezing-associated respiratory infection (WARI) (Primary Dx); Primary hypertension; Thrombocythemia; Essential (hemorrhagic) thrombocythemia ([facility]) Start: 02-12-2024 End: 02-12-2024 ambulatory Jay B Rodgers Work Phone: Hematology/Oncology Comment on above: Thrombocythemia (Edith shantanu Dx) Start: 02-12-2024 End: 02-12-2024 Patient encounter procedure Jay B Rodgers Work Phone: [facility] Start: 11-14-2023 Telephone encounter Jay B Rodgers Work Phone: Hematology/Oncology Comment on above: Results (LM for taurus ent to return my call. AA) Start: 09-27-2023 Refill Jay Rodgers Work Phone: Hematology/Oncology Comment on above: Refill Request Start: 08-31-2023 End: 08-31-2023 Office outpatient visit 25 minutes Gabriel Wilson MD Work Phone: [facility] Comment on above: Primary hypertension (Primary Dx); Thrombocythemia; Urticaria; Acute cystitis without hematuria; Encounter for screening mammogram for malignant neoplasm of breast Start: 07-24-2023 End: 07-24-2023 ambulatory Jay Rodgers Work Phone: Hematology/Oncology Comment on above: Thrombocythemia (Edith shantanu Dx); Encounter for monitoring of hydroxyurea therapy Start: 07-24-2023 End: 07-24-2023 Patient encounter procedure Jay Rodgers Work Phone: [facility] Start: 06-30-2023 End: 06-30-2023 ambulatory Tamia Encarnacion MONITORING AND EVALUATION ADVISOR.BLANKING MACHINE OPERATOR Work Phone: Hematology/Oncology Comment on above: Thrombocythemia (Edith shantanu Dx); Encounter for monitoring of hydroxyurea therapy; Macrocytosis without anemia Start: 06-30-2023 End: 06-30-2023 Patient encounter procedure Tamia Encarnacion MONITORING AND EVALUATION ADVISOR.BLANKING MACHINE OPERATOR Work Phone: [facility] Start: 06-28-2023 Telephone encounter Tamia Benoit MONITORING AND EVALUATION ADVISOR.BLANKING MACHINE OPERATOR Work Phone: Hematology/Oncology Comment on above: Lab Orders Start: 05-05-2023 Telephone encounter Dylan Tomas MD Work Phone: [facility] Comment on above: No Show (Labs) Start: 04-06-2023 End: 04-06-2023 ambulatory Dylan Tomas MD Work Phone: Hematology/Oncology Comment on above: Thrombocythemia (Edith shantanu Dx) Start: 04-06-2023 End: 04-06-2023 Patient encounter procedure Dylan Tomas MD Work Phone: [facility] Start: 02-28-[address] Gabriel Willis Facility:[id number] Start: 01-20-2023 Chart Update Gabriel laws Work Phone: [facility] [place]: Start: 01-19-2023 ambulatory Ms. Ness Steele Facility:[id number] Start: 01-05-2023 End: 01-05-2023 ambulatory Dylan Tomas MD Work Phone: Hematology/Oncology Comment on above: Thrombocythemia (Edith shantanu Dx) Start: 01-05-2023 End: 01-05-2023 Patient encounter procedure Dylan Tomas MD Work Phone: [facility] Start: 10-13-2022 End: 10-13-2022 ambulatory Dylan Tomas MD Work Phone: Hematology/Oncology Comment on above: Thrombocythemia (Edith shantanu Dx) Start: 10-13-2022 End: 10-13-2022 Patient encounter procedure Dylan Tomas MD Work Phone: [facility] Start: 09-09-2022 Telephone encounter Diamond Georges RN H ematology/Oncology Comment on above: Clinical Update Start: 08-02-2022 ambulatory MD GABRIEL WILSON Facility:[id number] Start: 08-02-2022 Office outpatient vi sit 15 minutes Gabriel Wilson Work Phone: [facility] [place]: Start: 07-21-2022 Telephone encounter Codi braden RN Work Phone: Hematology/Oncology Comment on above: 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 Per Dr Tomas pt should stay on same dose and recheck at scheduled time. Pt updated and denies other needs.) Start: 07-14-2022 End: 07-14-2022 ambulatory Dylan Tomas MD Work Phone: Hematology/Oncology Comment on above: Thrombocythemia (Edith shantanu Dx) Start: 07-14-2022 End: 07-14-2022 Patient encounter procedure Dylan Tomas MD Work Phone: [facility] Start: 06-13-2022 End: 06-14-2022 ambulatory TAMIA ENCARNACION [facility] Start: 06-13-2022 Telephone encounter Tamia Benoit APRN.CNP Work Phone: Hematology/Oncology Comment on above: Orders (patient call ed in concerned with having Left lower leg swelling. Denies redness or pain. Discussed with Tamia DRAPER new orders received. Will schedule phone visit after. Patient aware and verbalizes understanding. AA) Start: 04-04-2022 Telephone encounter Dylan Tomas MD Work Phone: Hematology/Oncology Comment on above: Lab Orders Start: 04-02-2022 Refill Dylan denson MD Work Phone: Hematology/Oncology Comment on above: Refill Request (Requ esting 90 day supply) Start: 01-27-2022 ambulatory MD GABRIEL WILSON Facility:[id number] Start: 01-27-2022 Office outpatient vi sit 25 minutes Gabriel Wilson Work Phone: [facility] Work Phone: Start: 10-06-2021 AUDIT Gabriel laws Work Phone: [facility] Work Phone: Start: 07-29-2021 Chart Update Gabriel laws Work Phone: -[facility] Work Phone: Start: 07-15-2021 Office outpatient vi sit 25 minutes Gabriel Wilson Work Phone: [facility] Work Phone: Start: 01-08-2021 End: 01-08-2021 Patient encounter procedure Bridgett Mcpherson Work Phone: [facility] Start: 12-11-2020 End: 12-11-2020 Patient encounter procedure Candida Jones [facility] Start: 02-03-2020 Patient encounter procedure Osito Gholam [facility] [place] [address] [facility] Work Phone: Start: 01-02-2020 Patient encounter procedure Osito Gholam [facility] [place] [address] Work Phone: Start: 12-11-2019 Patient encounter procedure Osito Gholam [facility] [place] [address] Work Phone: Start: 03-18-2019 Patient encounter procedure Osito Gholam [facility] [place] [facility] Work Phone: Start: 11-12-2018 Patient encounter procedure Osito Gholam [facility] Work Phone: Start: 09-20-2018 Patient encounter procedure Osito Gholam [facility] [place] [address] Work Phone: Start: 08-29-2018 Patient encounter PROVIDER UNKNOWN F acility:7 Start: 08-07-2018 Patient encounter procedure Osito Gholam [facility] Work Phone: Patient entered into trial Hernán Wilson Work Phone: [facility] Work Phone: Procedures Date Procedure Procedure Detail Performing Clinician Start: 03-05-2024 Lipid 1996 panel - Serum or Plasma José Rodgers Work Phone: Start: 09-08-2023 Mammography Gabriel Wilson MD Work Phone: Start: 08-31-2023 Urnls dip stick/tablet rgnt auto w/o microscopy Gabriel Wilson MD Work Phone: Start: 07-14-2022 Adult depression screening assessment Dylan Tomas MD Work Phone: Start: 02-03-2022 Adult depression screening assessment Dylan Tomas MD Work Phone: Start: 07-29-2021 Mammography Gabriel Wilson MD Work Phone: Start: 02-03-2020 Hepatic function panel Osito Angelespal Start: 02-03-2020 IO Liver Ultrasound Osito Angelespal Start: 01-02-2020 CBC W Auto Differential panel - Blood Osito Angelespal Start: 01-02-2020 Comprehensive metabolic 2000 panel Narendra Mario Start: 05-19-2015 Colonoscopy Gabriel Wilson MD Work Phone: Start: 05-19-2015 Screening colonoscopy Gabriel Wilson Work Phone: Start: 04-30-2014 Lipid 1996 panel - Serum or Plasma José Rodgers Work Phone: section Osito Potts am Cholecystectomy Osito ortiz Esophagogastroduodenoscopy P ierre Torm Exploratory laparotomy Narendra Mario End: 05-19-2015 Screening colonoscopy Osito Mario Tonsillectomy and adenoidectomy Osito Mario Plan of Treatment Date Care Activity Detail Author Start: 2039 RSV Vaccine (1 - 1-d ose 75+ series) RSV Vaccine (1 - 1-dose 75+ series) [facility] Start: 03-05-2029 Lipid panel Lipid Screening [facility] Start: 05-27-2028 Diabetes Screening Diabetes Screenin g [facility] Start: 02-26-2028 Diabetes Screening Diabetes Screenin g [facility] Start: 11-26-2027 Diabetes Screening Diabetes Screenin g [facility] Start: 05-20-2027 Diabetes Screening Diabetes Screenin g [facility] Start: 02-11-2027 Diabetes Screening Diabetes Screenin g [facility] Start: 11-13-2026 Diabetes Screening Diabetes Screenin g [facility] Start: 07-24-2026 DIABETES SCREEN DIABETES SCREEN [facility] Start: 07-24-2026 Diabetes Screening Diabetes Screenin g [facility] Start: 04-18-2026 Screening for malign ant neoplasm of breast Mammogram Screening [facility] Start: 12-08-2025 DIABETES SCREEN DIABETES SCREEN [facility] Start: 10-17-2025 End: 10-17-2025 Patient encounter procedure 10/17/2025 11:40 AM EST Office Visit [place] [address] [phone] Gabriel Wilson MD [facility] [address] [address] [facility] Start: 09-15-2025 DIABETES SCREEN DIABETES SCREEN [facility] Start: 09-01-2025 End: 09-01-2025 Follow-up encounter 09/01/2025 10:00 AM EDT Visit (SP) Office Hematology/Oncology [address] [place] [address] Jay Rodgers [address] [place] [address] 3 month follow up Hematology/Oncolog y Comment on above: 3 month follow up Start: 09-01-2025 End: 09-01-2025 ambulatory 09/01/2025 9:15 AM EDT Results Only [facility] [address] [place] [address] labs doc after [facility] Comment on above: labs doc after Start: 07-28-2025 Influenza vaccination Influenza Vacc ine (#1) [facility] Start: 07-14-2025 DIABETES SCREEN DIABETES SCREEN [facility] Start: 05-27-2025 End: 05-27-2025 Follow-up encounter 05/27/2025 1:00 PM EDT Visit (SP) Office Hematology/Oncology [address] [place] [address] Jay Rodgers [address] [place] [address] 3 month follow up-labs prior Hematology/Oncolog y Comment on above: 3 month follow up-la bs prior Start: 05-27-2025 End: 05-27-2025 Patient encounter procedure 05/27/2025 12:15 PM EDT Results Only [facility] [address] [place] [address] labs-office visit after [facility] Comment on above: labs-office visit af ter Start: 05-19-2025 Screening for malign ant neoplasm of colon [facility] Start: 04-18-2025 End: 04-18-2025 Patient encounter procedure 04/18/2025 7:45 AM EDT Appointment [facility] [address] [facility] [address] [place] [phone] [facility] Start: 04-11-2025 End: 06-11-2026 DBT Breast - bilateral BI mammo bilateral screening tomosynthesis Imaging Routine Breast cancer screening by mammogram Expected: 04/11/2025, Expires: 06/11/2026 [facility] Service Area Work Phone: Comment on above: Expected: 04/11/2025 , Expires: 06/11/2026 Start: 04-07-2025 DIABETES SCREEN DIABETES SCREEN [facility] Start: 02-28-2025 End: 02-28-2025 Patient encounter procedure 02/28/2025 10:40 AM EDT Office Visit [address] [id number] Gabriel Wilson MD [address] [place] [address] [facility] Start: 02-24-2025 End: 02-24-2025 Follow-up encounter Hematology/Oncolog y Comment on above: 3 month follow up wi th lab results Start: 02-24-2025 End: 02-24-2025 ambulatory 02/24/2025 10:30 AM EDT Results Only [facility] [address] [place] [address] Dr. Benton luis after [facility] Comment on above: Dr. Benton luis after Start: 02-03-2025 DIABETES SCREEN DIABETES SCREEN [facility] Start: 11-26-2024 End: 11-26-2024 Patient encounter procedure [facility] Comment on above: labs-office visit af ter 3 month office visit Start: 09-08-2024 Screening for malign ant neoplasm of breast [facility] Start: 08-30-2024 End: 08-30-2024 Patient encounter procedure 08/30/2024 9:00 AM EDT Office Visit [facility] [address] [place] [address] Gabriel Wilson MD [address] [place] [address] [facility] Start: 08-19-2024 End: 08-19-2024 Results Only [facility] Comment on above: labs, orders linked 3 mon, pt requested this time due to work Start: 2024 Hepatitis B Vaccines (1 of 3 - Risk 3-dose series) Hepatitis B Vaccines (1 of 3 - Risk 3-dose series) [facility] Start: 2024 RSV High Risk: (Elde rly (60+) or Population) (1 - Risk 60-74 years 1-dose series) RSV High Risk: (Elderly (60+) or Population) (1 - Risk 60-74 years 1-dose series) [facility] Start: 2024 RSV patient s and/or patients aged 60+ years (1 - 1-dose 60+ series) RSV patients and/or patients aged 60+ years (1 - 1-dose 60+ series) [facility] Start: 2024 RSV Vaccine (1 - Ris k 60-74 years 1-dose series) RSV Vaccine (1 - Risk 60-74 years 1-dose series) [facility] Start: 07-28-2024 COVID-19 Vaccine ( season) COVID-19 Vaccine ( season) [facility] Start: 07-28-2024 Covid-19 Vaccine ( season) Covid-19 Vaccine ( season) [facility] Start: 07-28-2024 Influenza vaccination Influenza Vacc ine (#1) [facility] Start: 05-20-2024 End: 05-20-2024 Results Only [facility] Comment on above: labs, orders linked 3 mon, pt requested this time due to work Start: 05-14-2024 End: 08-13-2024 CBC W Auto Differential panel - Blood CBC + DIFF Lab Routine Thrombocythemia Expected: 05/14/2024 (Approximate), Expires: 08/13/2024 [facility] Work Phone: Comment on above: Expected: 05/14/2024 (Approximate), Expires: 08/13/2024 Start: 05-12-2024 End: 08-11-2024 Comprehensive metabolic 2000 panel - Serum or Plasma COMP METABOLIC PANEL Lab Routine Thrombocythemia Expected: 05/12/2024 (Approximate), Expires: 08/11/2024 [facility] Work Phone: Comment on above: Expected: 05/12/2024 (Approximate), Expires: 08/11/2024 Start: 03-04-2024 End: 06-03-2024 CBC W Auto Differential panel - Blood CBC + DIFF Lab Routine Thrombocythemia Expected: 03/04/2024, Expires: 06/03/2024 [facility] Work Phone: Comment on above: Expected: 03/04/2024 , Expires: 06/03/2024 Start: 03-01-2024 End: 03-01-2025 Lipid 1996 panel - Serum or Plasma Lipid Panel Lab Routine Primary hypertension Expected: 03/01/2024 (Approximate), Expires: 03/01/2025 [facility] Service Area Work Phone: Comment on above: Expected: 03/01/2024 (Approximate), Expires: 03/01/2025 Start: 03-01-2024 End: 03-01-2025 Thyrotropin [Units/volume] in Serum or Plasma Thyroid Stimulating Hormone Lab Routine Primary hypertension Wheezing-associated respiratory infection (WARI) Expected: 03/01/2024 (Approximate), Expires: 03/01/[address] [facility] Work Phone: Comment on above: Expected: 03/01/2024 (Approximate), Expires: 03/01/2025 Start: 03-01-2024 End: 03-01-2024 Patient encounter procedure 03/01/2024 10:00 AM EDT Office Visit [facility] [address] [place] [id number] Gabriel Wilson MD [address] [place] [address] [facility] Start: 11-27-2023 Behavioral Health Screening Behavioral Health Screening [facility] Start: 11-27-2023 Depression Assessment Depression Ass essment [facility] Start: 09-08-2023 End: 09-08-2023 Professional / ancillary services management 09/08/2023 2:00 PM EDT Ancillary Procedure [facility] [address] [facility] [address] [place] [phone] [facility] Start: 08-31-2023 End: 10-31-2024 DBT Breast - bilateral BI mammo bilateral screening tomosynthesis Imaging Routine Encounter for screening mammogram for malignant neoplasm of breast Expected: 08/31/2023, Expires: 10/31/2024 [facility] Service Area Work Phone: Comment on above: Expected: 08/31/2023 , Expires: 10/31/2024 Start: 07-28-2023 Covid-19 Vaccine ( season) Covid-19 Vaccine ( season) [facility] Start: 07-28-2023 Influenza vaccination C [facility] Start: 07-26-2023 End: 09-25-2023 CBC W Auto Differential panel - Blood CBC + DIFF Lab Routine Thrombocythemia Encounter for monitoring of hydroxyurea therapy Expected: 07/26/2023, Expires: 09/25/2023 [facility] Work Phone: Comment on above: Expected: 07/26/2023 , Expires: 09/25/2023 Start: 07-26-2023 End: 09-25-2023 Comprehensive metabolic 2000 panel - Serum or Plasma COMP METABOLIC PANEL Lab Routine Encounter for monitoring of hydroxyurea therapy Expected: 07/26/2023, Expires: 09/25/2023 [facility] Work Phone: Comment on above: Expected: 07/26/2023 , Expires: 09/25/2023 Start: 07-14-2023 Adult depression screening assessment DEPRESSION SCREENING [facility] Start: 06-28-2023 End: 08-28-2023 CBC W Auto Differential panel - Blood CBC + DIFF Lab Routine Thrombocythemia Expected: 06/28/2023, Expires: 08/28/2023 [facility] Work Phone: Comment on above: Expected: 06/28/2023 , Expires: 08/28/2023 Start: 03-03-2023 EPV, Provider: Gabriel Wilson, Status: Pen, Time: 8:00 AM EPV, Provider: Gabriel Wilson, Status: Pen, Time: 8:00 AM [facility] Work Phone: Start: 02-03-2023 Adult depression screening assessment DEPRESSION SCREENING [facility] Start: 01-05-2023 End: 03-07-2023 Comprehensive metabolic 2000 panel - Serum or Plasma COMP METABOLIC PANEL Lab Routine Thrombocythemia Expected: 01/05/2023, Expires: 03/07/2023 [facility] Work Phone: Comment on above: Expected: 01/05/2023 , Expires: 03/07/2023 Start: 11-27-2022 DEPRESSION ASSESSMENT DEPRESSION ASS ESSMENT [facility] Start: 10-27-2022 End: 12-27-2022 CBC W Auto Differential panel - Blood CBC + DIFF Lab Routine Thrombocythemia Expected: 10/27/2022, Expires: 12/27/2022 [facility] Work Phone: Comment on above: Expected: 10/27/2022 , Expires: 12/27/2022 Start: 08-02-2022 EPV, Provider: Gabriel Wilson, Status: Pen, Time: 8:00 AM EPV, Provider: Gabriel Wilson, Status: Pen, Time: 8:00 AM -[facility] Work Phone: Start: 07-29-2022 Screening for malign ant neoplasm of breast Mammogram [facility] Start: 07-28-2022 Influenza vaccination INFLUENZA (#1) [facility] Start: 07-20-2022 End: 09-19-2022 CBC W Auto Differential panel - Blood CBC + DIFF Lab Routine Thrombocythemia Expected: 07/20/2022, Expires: 09/19/2022 [facility] Work Phone: Comment on above: Expected: 07/20/2022 , Expires: 09/19/2022 Start: 06-13-2022 End: 07-13-2023 Dup-scan xtr veins unilateral/limited study US DVT LOWER LT Radiology Routine Pain of left lower extremity Expected: 06/13/2022, Expires: 07/13/2023 [facility] Work Phone: Comment on above: Expected: 06/13/2022 , Expires: 07/13/2023 Start: 05-06-2022 COVID-19 VACCINE (5 - Booster for Moderna series) COVID-19 VACCINE (5 - Booster for Moderna series) [facility] Start: 05-06-2022 COVID-19 VACCINE (5 - Moderna series) COVID-19 VACCINE (5 - Moderna series) [facility] Start: 04-04-2022 End: 06-04-2022 Comprehensive metabolic 2000 panel - Serum or Plasma COMP METABOLIC PANEL Lab Routine Thrombocythemia Expected: 04/04/2022, Expires: 06/04/2022 [facility] Work Phone: Comment on above: Expected: 04/04/2022 , Expires: 06/04/2022 Start: 01-27-2022 EPV, Provider: Gabriel Wilson, Status: Pen, Time: 8:00 AM EPV, Provider: Gabriel Wilson, Status: Pen, Time: 8:00 AM -blogfoster [facility] Work Phone: Start: 11-27-2021 DEPRESSION ASSESSMENT DEPRESSION ASS ESSMENT [facility] Start: 01-08-2021 COVID-19 Vaccine (Moderna) (#2) COVID-19 Vaccine (Moderna) (#2) [facility] Start: 01-08-2021 End: 01-08-2021 Immunization 01/08/2021 Immunization Primary Care Bridgett Mcpherson MD [address] [facility] [address] [place] [address] [phone] [facility] [employer] [facility] Start: 07-28-2020 Influenza vaccinatio n given Sequential Influenza Vaccine (#1) [facility] Start: 04-30-2019 Lipid 1996 panel - Serum or Plasma Lipid Screening [facility] Start: 04-30-2019 Lipid panel Lipid Screening [facility] Start: 04-30-2019 LIPID SCREEN LIPID SCREEN [facility] Start: 05-19-2016 Screening for malign ant neoplasm of colon [facility] Start: 2014 Administration of herpes zoster vaccine Zoster Vaccines (1 of 2) [facility] Start: 2014 Pneumococcal vaccination Pneumococcal Vaccine (1 of 1 - PCV) [facility] Start: 2014 Pneumococcal Vaccine : 50+ (1 of 1 - PCV) Pneumococcal Vaccine: 50+ (1 of 1 - PCV) [facility] Start: 2014 Screening for malign ant neoplasm of colon [facility] Start: 2014 SHINGRIX VACCINE (1 of 2) SHINGRIX VACCINE (1 of 2) [facility] Start: 2009 COLOGUARD (FIT-DNA) COLOGUARD (FIT-D NA) [facility] Start: 2009 Colonoscopy COLONOSCOPY [facility] Start: 2009 COLORECTAL CANCER SCREENING COLORECTAL CANCER SCREENING [facility] Start: [address] COLONOGRAPHY [facility] Start: 2009 FECAL OCCULT BLOOD FECAL OCCULT BLOO D [facility] Start: 2009 Screening for malign ant neoplasm of colon [facility] Start: 2009 SIGMOIDOSCOPY SIGMOIDOSCOPY [facility] Start: 04-10-2008 IPV Vaccines (2 of 3 - Adult catch-up series) IPV Vaccines (2 of 3 - Adult catch-up series) [facility] Start: 2004 Mammography [facility] Start: 1994 HPV TESTING HPV TESTING [facility] Start: 1994 Screening for malign ant neoplasm of cervix HPV Testing [facility] Start: 1986 DTaP/Tdap/Td Vaccine s (1 - Tdap) DTaP/Tdap/Td Vaccines (1 - Tdap) [facility] Start: 1985 PAP TESTING PAP TESTING [facility] Start: 1985 Screening for malign ant neoplasm of cervix [facility] Start: 1983 Urine microalbumin profile [facility] Start: 1982 Anxiety Screening Anxiety Screening [facility] Start: 1982 Depression Screening Depression Scre ening [facility] Start: 1982 Diabetes mellitus screening Diabetes Screening [facility] Start: 1982 Hepatitis C antibody , confirmatory test Hepatitis C Screening [facility] Start: 1982 HEPATITIS C SCREENING HEPATITIS C [facility] Start: 1982 Hepatitis C screening Hepatitis C [facility] Start: 1982 HIV SCREENING HIV SCREENING [facility] Start: 1982 HIV screening HIV Screening [facility] Start: 1979 HIV screening HIV Screening [facility] Start: 1976 Adolescent depressio n screening assessment Depression Screening (PHQ9) [facility] Start: 1967 History and physical examination, annual for health maintenance Wellness Visit [facility] Start: 1964 HEPATITIS B (1 of 3 - 3-dose series) HEPATITIS B (1 of 3 - 3-dose series) [facility] Start: 1964 Hepatitis B Vaccines (1 of 3 - 3-dose series) Hepatitis B Vaccines (1 of 3 - 3-dose series) [facility] Start: 1964 HIV screening HIV Screening [facility] Start: 1964 Lipid panel Lipid Panel [facility] Start: 1964 Screening for malign ant neoplasm of cervix Pap Smear [facility] Start: 1964 Screening for malign ant neoplasm of colon [facility] Start: 1964 Screening mammography Mammogram [facility] Start: 1964 Tetanus vaccination Tetanus: Every 1 0yrs [facility] Start: 1964 Yearly Adult Physical Yearly Adult P [facility] End: 10-13-2023 CBC W Auto Differential panel - Blood CBC + DIFF Lab Routine Thrombocythemia Once per month for 12 Occurrences starting 10/13/2022 until 10/13/2023 [facility] Work Phone: Comment on above: Once per month for 1 2 Occurrences starting 10/13/2022 until 10/13/2023 End: 04-05-2024 CBC W Auto Differential panel - Blood CBC + DIFF Lab Routine Thrombocythemia Every other week for 20 Occurrences starting 04/06/2023 until 04/05/2024 [facility] Work Phone: Comment on above: Every other week for 20 Occurrences starting 04/06/2023 until 04/05/2024 End: 07-23-2024 CBC W Auto Differential panel - Blood CBC + DIFF Lab Routine Thrombocythemia Encounter for monitoring of hydroxyurea therapy Once per month for 12 Occurrences starting 07/24/2023 until 07/23/2024 [facility] Work Phone: Comment on above: Once per month for 1 2 Occurrences starting 07/24/2023 until 07/23/2024 End: 05-20-2025 CBC W Auto Differential panel - Blood COMPLETE BLOOD COUNT AND DIFFERENTIAL Lab Routine Thrombocythemia Encounter for monitoring of hydroxyurea therapy Every 3 months for 10 Occurrences starting 05/20/2024 until 05/20/2025 [facility] Work Phone: Comment on above: Every 3 months for 1 0 Occurrences starting 05/20/2024 until 05/20/2025 End: 05-27-2026 CBC W Auto Differential panel - Blood COMPLETE BLOOD COUNT AND DIFFERENTIAL Lab Routine Thrombocythemia Every 3 months for 10 Occurrences starting 05/27/2025 until 05/27/2026 [facility] Work Phone: Comment on above: Every 3 months for 1 0 Occurrences starting 05/27/2025 until 05/27/2026 End: 07-23-2024 Comprehensive metabolic 2000 panel - Serum or Plasma COMP METABOLIC PANEL Lab Routine Thrombocythemia Encounter for monitoring of hydroxyurea therapy Every 3 months for 4 Occurrences starting 07/24/2023 until 07/23/2024 [facility] Work Phone: Comment on above: Every 3 months for 4 Occurrences starting 07/24/2023 until 07/23/2024 End: 08-28-2025 Comprehensive metabolic 2000 panel - Serum or Plasma COMPREHENSIVE METABOLIC PANEL Lab Routine Thrombocythemia Every 3 months for 17 Occurrences starting 08/28/2024 until 08/28/2025 [facility] Work Phone: Comment on above: Every 3 months for 1 7 Occurrences starting 08/28/2024 until 08/28/2025 End: 05-27-2026 Comprehensive metabolic 2000 panel - Serum or Plasma COMPREHENSIVE METABOLIC PANEL Lab Routine Thrombocythemia Every 3 months for 17 Occurrences starting 05/27/2025 until 05/27/2026 [facility] Comment on above: Every 3 months for 1 7 Occurrences starting 05/27/2025 until 05/27/2026 Hepatic function panel Hepatic Function P jason [facility] Work Phone: Comment on above: Approx [facility] Work Phone: IO Liver Ultrasound [facility] Work Phone: Comment on above: Approx [facility] NEGATED: Highlighted row has been ruled out! Planned Goals not documented [facility] Work Phone: Immunizations Immunization Date Immunization Notes Care Provider Fa [facility] 09-14-2024 influenza virus vacc ine, unspecified formulation Jay Rodgers Work Phone: [facility] 08-31-2023 Influenza, injectabl e, Madin [place] Canine Kidney, preservative free, quadrivalent Gabriel Wilson MD Work Phone: [facility] Work Phone: 08-31-2023 influenza virus vacc ine, unspecified formulation Jay Das Work Phone: [facility] 03-11-2023 zoster vaccine recombinant Gabriel Wilson MD Work Phone: [facility] Work Phone: 12-10-2022 zoster vaccine recombinant Gabriel Wilson Work Phone: [facility] Work Phone: 09-01-2022 Influenza, injectabl e, [place] Canine Kidney, preservative free, quadrivalent Diamond Georges RN [facility] 09-01-2022 influenza virus vacc ine, unspecified formulation Gabriel Wilson MD Work Phone: [facility] Work Phone: 03-11-2022 Moderna COVID-19 Vac cine 100 MCG/0.5ML Intramuscular Suspension Gabriel Wilson Work Phone: [facility] Work Phone: 08-23-2021 influenza virus vacc ine, whole virus Gabriel Wilson MD Work Phone: [facility] Work Phone: 08-23-2021 influenza, injectabl e, quadrivalent, preservative free Gabriel Wilson Work Phone: [facility] 08-18-2021 Moderna COVID-19 Vac cine 100 MCG/0.5ML Intramuscular Suspension Gabriel Wilson Work Phone: [facility] Work Phone: 01-08-2021 Moderna SARS-CoV-2 Vaccination Tyrell Augustin [facility] Comment on above: Series: 12-11-2020 Moderna SARS-CoV-2 Vaccination Candida Jones [facility] Comment on above: Series: 07-31-2020 influenza, injectabl e, quadrivalent, preservative free Diamond Georges RN [facility] 07-31-2020 influenza, seasonal, injectable Gabriel Wilson Work Phone: [facility] Work Phone: Comment on above: Series: 07-27-2020 influenza, injectabl e, quadrivalent, preservative free Diamond Georges RN [facility] 08-15-2019 Influenza, injectabl e, Madin [place] Canine Kidney, preservative free, quadrivalent Diamond Georges RN [facility] 08-15-2019 influenza, seasonal, injectable Gabriel D Stencel Work Phone: [facility] Work Phone: Comment on above: Series: 08-13-2019 Influenza, injectabl e, Madin [place] Canine Kidney, preservative free, quadrivalent Diamond Georges RN [facility] 08-05-2018 influenza, injectabl e, quadrivalent, preservative free Gabriel D Stencel Work Phone: [facility] 08-09-2017 influenza, injectabl e, quadrivalent, preservative free Gabriel D Stencel Work Phone: [facility] 08-20-2015 influenza, seasonal, injectable, preservative free Gabriel D Stencel Work Phone: [facility] 10-01-2009 novel influenza-H1N1 -09, preservative-free, injectable Gabriel D Stencel Work Phone: [facility] 09-15-2009 influenza virus vacc ine, whole virus Gabriel D Stencel Work Phone: [facility] 10-16-2008 hepatitis A vaccine, adult dosage Gabriel D Stencel Work Phone: [facility] Work Phone: Comment on above: Series: 10-16-2008 hepatitis A vaccine, pediatric/adolescent dosage, 2 dose schedule Diamond Georges RN [facility] 09-26-2008 influenza virus vacc ine, whole virus Gabriel D Stencel Work Phone: [facility] 03-21-2008 yellow fever vaccine Gabriel D Stencel Work Phone: [facility] Comment on above: Series: 03-13-2008 hepatitis A vaccine, adult dosage Gabriel D Stencel Work Phone: [facility] Comment on above: Series: 03-13-2008 measles, mumps and rubella virus vaccine Gabriel Wilson Work Phone: [facility] Comment on above: Series: 03-13-2008 meningococcal polysaccharide (groups A, C, Y and W-135) diphtheria toxoid conjugate vaccine (MCV4P) Gabriel Wilson Work Phone: [facility] Comment on above: Series: 03-13-2008 poliovirus vaccine, inactivated Gabriel Wilson Work Phone: [facility] Comment on above: Series: 03-13-2008 typhoid vaccine, adry e, oral Gabriel Wilson Work Phone: [facility] Work Phone: Comment on above: Series: 03-13-2008 typhoid capsular polysaccharide vaccine Diamond Georges RN [facility] 03-13-2008 poliovirus vaccine, unspecified formulation Gabriel Wilson MD Work Phone: [facility] Work Phone: 09-28-2007 influenza virus vacc ine, whole virus Gabriel Wilson Work Phone: [facility] Payers Date Payer Category Payer Managed Care (Private) [facility] [id number] 2019 Private Health Insurance MMO SUP [employer] PPO [id number] 2019 Unknown 2019 Unknown MMO MMO SU[employer] PLUS [id number] 2019-Present [phone] [address] [place] [address] PPO [id number] 2019 Unknown [id number] 1964 Unknown [id number] 1964 Unknown [id number] 1964 Unknown [id number] 1964 Unknown [id number] 1964 Unknown [id number] 1964 Unknown [id number] 1964 Unknown [id number] 1964 Unknown [id number] 1964 Unknown [id number] Social History Date Type Detail Facility Assertion Tobacco smoking consumption unknown (finding) [facility] Work Phone: Start: 1965 Sex Assigned At Not on file [facility] Exposure to SARS-CoV -2 (event) Unable to assess [facility] Start: 03-07-2022 End: 04-11-2025 Exposure to SARS-CoV-2 (event) Not sure [facility] Start: 04-08-2021 End: 04-06-2023 Non-smoker Non-smoker [facility] Start: 04-30-2014 End: 02-27-2023 Tobacco smoking status NHIS Never smoked tobacco [facility] Start: 04-08-2021 Alcohol intake Current non-dr woolen suiting shrinker of alcohol (finding) [facility] Start: 04-30-2014 End: 02-27-2023 Tobacco use and exposure Smokeless tobacco non-user [facility] Start: 04-08-2021 End: 04-06-2023 Tobacco use panel [facility] Adult Depression Screening Assessment 0 [facility] Start: 08-31-2023 End: 04-11-2025 Alcohol intake Ex-drinker (finding) [facility] Work Phone: Functional Status Date Assessment Result Facility 04-11-2025 Patient Health Questionnaire 2 item (PHQ-2) [Reported] [facility] Work Phone: 04-02-2015 Are you deaf, or do you have serious difficulty hearing No 04/02/2015 10:50 AM Tessy Lazo MA [facility] [place] 04-02-2015 Are you blind, or do you have serious difficulty seeing, even when wearing glasses No 04/02/2015 10:50 AM Tessy Lazo MA No [facility] 04-02-2015 Do you have serious difficulty walking or climbing stairs No 04/02/2015 10:50 AM Tessy Lazo MA No [facility] 04-02-2015 Do you have difficul ty dressing or bathing No 04/02/2015 10:50 AM Tessy Lazo MA [facility] [place] 04-02-2015 Because of a physica l, mental, or emotional condition, do you have difficulty doing errands alone such as visiting a physician's office or shopping No 04/02/2015 10:50 AM Tessy Lazo MA [facility] [place] NEGATED: Highlighted row Functional performance Functional status health issues are not documented [facility] [address] [facility] Work Phone: Mental Status Date Assessment Result Facility 04-02-2015 Because of a physical, mental, or emotional condition, do you have serious difficulty concentrating, remembering, or making decisions No 04/02/2015 10:50 AM EDT Tessy Espinosa MA No [facility] NEGATED: Highlighted row Cognitive function [Interpretation] Cognitive status health issues are not documented [facility] [address] [facility] Work Phone: Clinical Notes 04-04-2022 to 10-06-2025 Jay Rodgers B - 05/27/2025 1:05 PM Luciano Wilson MD - 04/11/2025 8:20 AM EDTJay Rodgers - 02/25/2025 1:00 PM EDTTelephone Encounter - Diamond Georges RN - 11/28/2024 2:41 PM EST Note Date & Type Note Facility 10-06-2025 Note HNO ID: [id number] Author: JAY RODGERS, ? Service: ? Author Type: Physician Type: Progress Notes Filed: 10/06/2025 11:28 Note Text: HISTORY OF PRESENT ILLNESS: Ms. Raya Dominguez is a 60-year-old female with a past medical history of retention who has been diagnosed with essential thrombocytosis. Patient has been seen by Dr. Tomas. For complete details please see Dr. Tomas's note dated 10/16/2023. Patient currently is on Hydrea. She reports tolerating this well. She is without complaint. She was initially diagnosed with essential thrombocytosis in 10/2009. Patient initially was reluctant to start on Hydrea. He was just managed with observation until April 14, 2020 when she agreed to start on Hydrea. Patient's doses have gradually increased. Patient currently is taking Hydrea 500 mg twice BID Monday through and 1 tablet (500 mg )onSunday. She now returns CURRENT STATUS: Patient appears to be tolerating the Hydrea well. Patient is currently taking aspirin a day. She is currently without complaint. She is still working at [employer]. She has a son in [place] and a son in [place]. She reports that she developed a URI and has been rx doxcycline and is on day #4. ECOG PERFORMANCE STATUS: 0- Fully active, able to carry on all pre-disease performance w/o restriction. Social History Tobacco Use Smoking status: Never Smokeless tobacco: Never Substance Use Topics Alcohol use: No Drug use: No FAMILY HISTORY Problem Relation Age of Onset Thyroid Mother Cancer Father lung Hypertension Father Hypertension Sister Stroke Paternal Grandmother PAST MEDICAL HISTORY Diagnosis Date Hypertension Other acute pain 01/02/2012 Thrombocythemia (HCC) PHYSICAL EXAM: BP 120/82 Pulse 80 Resp 16 Wt 234 lb 2.1 oz (106.2kg) SpO2 94% CONSTITUTIONAL: Awake, alert, oriented. HEAD (Incl. face): Normocephalic; Atraumatic. EYES: Pupils are reactive. No scleral icterus. HEENT: No oral exudates. NECK: No thyromegaly. No JVD. HEMATOLOGY/LYMPHATIC: No petechiae or purpura. No tender or palpable lymph nodes in the cervical, supraclavicular, axillary or inguinal areas. RESPIRATORY: Lungs are clear to auscultation. CARDIOVASCULAR: Regular rate and rhythm. 2 + radial pulse. ABDOMEN: Non-tender, soft, positive bowel sounds. BACK/SPINE: No kyphosis or scoliosis. Non tender to palpation. MUSCULOSKELETAL: No tenderness or swelling, normal range of motion without obvious weakness. EXTREMITIES: No cyanosis, clubbing INTEGUMENTARY: No rashes or masses. NEURO: No sensory or motor deficits, normal cerebellar function, normal gait, cranial nerves intact. PSYCHIATRIC: Pleasant affect. No signs of agitation. LABS: Latest Reference Range AND Units 10/06/25 11:11 WBC 3.70 - 11.00 k/uL 6.38 RBC 3.90 - 5.20 m/uL 3.98 Hemoglobin 11.5 - 15.5 g/dL 14.8 Hematocrit 36.0 - 46.0 % 42.3 Platelet Count 150 - 400 k/uL 428 (H) MCV 80.0 - 100.0 fL 106.3 (H) MCH 26.0 - 34.0 pg 37.2 (H) MCHC 30.5 - 36.0 g/dL 35.0 MPV 9.0 - 12.7 fL 8.5 (L) RDW-CV 11.5 - 15.0 % 12.4 DTYPE Auto Neut% % 61.4 Abs Neut (ANC) 1.45 - 7.50 k/uL 3.91 Lymph% % 29.9 Abs Lymph 1.00 - 4.00 k/uL 1.91 [place]% % 4.5 Abs [place] <0.87 k/uL 0.29 Eosin% % 3.0 Abs Eosin <0.46 k/uL 0.19 Baso% % 0.9 Abs Baso <0.11 k/uL 0.06 Immature Gran % % 0.3 IMMATURE GRANS (ABS) <0.10 k/uL <0.03 NRBC /100 WBC 0.0 Absolute nRBC <0.01 k/uL <0.01 (H): Data is abnormally high (L): Data is abnormally low ASSESSMENT / PLAN: Esssential thrombocytosis, JAK2 mutated. She will now take 1000 mg Monday through Monday 500 mg on Monday. Her platelet count is mildly elevated but she is recovering from a URI and a course of antibiotics(3 more left) Will continue on current dose. Return to see me in 3 months. Some Elements Copied from my note previous note, May 27, 2025 I have updated where appropriate, and all reflect current medical decision making from today, October 06, 2025 Jay Rodgers MD This note was partially generated using [employer] voice recognition system, and there may be some incorrect words, spellings, and punctuation that were not noted in checking the note before saving. [facility] 05-27-2025 Note HNO ID: [id number] Author: JAY RODGERS, ? Service: ? Author Type: Physician Type: Progress Notes Filed: 05/27/2025 13:44 Note Text: HISTORY OF PRESENT ILLNESS: Ms. Raya Dominguez is a 59-year-old female with a past medical history of retention who has been diagnosed with essential thrombocytosis. Patient has been seen by Dr. Tomas. For complete details please see Dr. Tomas's note dated 10/16/2023. Patient currently is on Hydrea. She reports tolerating this well. She is without complaint. She was initially diagnosed with essential thrombocytosis in 10/2009. Patient initially was reluctant to start on Hydrea. He was just managed with observation until April 14, 2020 when she agreed to start on Hydrea. Patient's doses have gradually increased. Patient currently is taking Hydrea 500 mg twice BID Monday through and 1 tablet (500 mg )onSunday. She now returns CURRENT STATUS: Patient appears to be tolerating the Hydrea well. Patient is currently taking aspirin a day. She is currently without complaint. ECOG PERFORMANCE STATUS: 0- Fully active, able to carry on all pre-disease performance w/o restriction. Social History Tobacco Use Smoking status: Never Smokeless tobacco: Never Substance Use Topics Alcohol use: No Drug use: No FAMILY HISTORY Problem Relation Age of Onset Thyroid Mother Cancer Father lung Hypertension Father Hypertension Sister Stroke Paternal Grandmother PAST MEDICAL HISTORY Diagnosis Date Hypertension Other acute pain 01/02/2012 Thrombocythemia (HCC) PHYSICAL EXAM: BP 133/86 Pulse 74 Temp (Src) 97 (Temporal) Resp 20 Wt 234 lb 12.6 oz (106.5kg) SpO2 98% CONSTITUTIONAL: Awake, alert, oriented. HEAD (Incl. face): Normocephalic; Atraumatic. EYES: Pupils are reactive. No scleral icterus. HEENT: No oral exudates. NECK: No thyromegaly. No JVD. HEMATOLOGY/LYMPHATIC: No petechiae or purpura. No tender or palpable lymph nodes in the cervical, supraclavicular, axillary or inguinal areas. RESPIRATORY: Lungs are clear to auscultation. CARDIOVASCULAR: Regular rate and rhythm. 2 + radial pulse. ABDOMEN: Non-tender, soft, positive bowel sounds. BACK/SPINE: No kyphosis or scoliosis. Non tender to palpation. MUSCULOSKELETAL: No tenderness or swelling, normal range of motion without obvious weakness. EXTREMITIES: No cyanosis, clubbing INTEGUMENTARY: No rashes or masses. NEURO: No sensory or motor deficits, normal cerebellar function, normal gait, cranial nerves intact. PSYCHIATRIC: Pleasant affect. No signs of agitation. LABS: Latest Reference Range AND Units 05/27/25 12:29 05/27/25 12:30 Sodium 136 - 144 mmol/L 139 Potassium 3.7 - 5.1 mmol/L 4.1 Chloride 98 - 107 mmol/L 101 CO2 22 - 30 mmol/L 26 BUN 7 - 21 mg/dL 16 Creatinine 0.58 - 0.96 mg/dL 0.60 Glucose 74 - 99 mg/dL 94 Protein, Total 6.3 - 8.0 g/dL 7.2 Calcium 8.5 - 10.2 mg/dL 9.7 Albumin 3.9 - 4.9 g/dL 4.6 Bilirubin, Total 0.2 - 1.3 mg/dL 0.7 Alkaline Phosphatase 34 - 123 U/L 89 ALT 7 - 38 U/L 33 AST 13 - 35 U/L 29 Anion Gap 8 - 15 mmol/L 12 eGFR >=60 mL/min/1.73m? 103 WBC 3.70 - 11.00 k/uL 6.76 RBC 3.90 - 5.20 m/uL 4.10 Hemoglobin 11.5 - 15.5 g/dL 14.8 Hematocrit 36.0 - 46.0 % 42.5 Platelet Count 150 - 400 k/uL 435 (H) MCV 80.0 - 100.0 fL 103.7 (H) MCH 26.0 - 34.0 pg 36.1 (H) MCHC 30.5 - 36.0 g/dL 34.8 MPV 9.0 - 12.7 fL 8.9 (L) RDW-CV 11.5 - 15.0 % 13.0 DTYPE Auto Neut% % 57.2 Abs Neut (ANC) 1.45 - 7.50 k/uL 3.86 Lymph% % 33.3 Abs Lymph 1.00 - 4.00 k/uL 2.25 [place]% % 5.3 Abs [place] <0.87 k/uL 0.36 Eosin% % 2.5 Abs Eosin <0.46 k/uL 0.17 Baso% % 0.7 Abs Baso <0.11 k/uL 0.05 Immature Gran % % 1.0 IMMATURE GRANS (ABS) <0.10 k/uL 0.07 NRBC /100 WBC 0.0 Absolute nRBC <0.01 k/uL <0.01 (H): Data is abnormally high (L): Data is abnormally low ASSESSMENT / PLAN: Esssential thrombocytosis, JAK2 mutated. She will now take 1000 mg Monday through Monday 500 mg on Monday. Suspect patient's previous elevation of platelet count was related to the steroids. Her platelet count is back in the normal range. Will continue on current dose. Return to see me in 3 months. Some Elements Copied from my note previous note, February 25, 2025. I have updated where appropriate, and all reflect current medical decision making from today, May 27, 2025 Jay Rodgers MD This note was partially generated using Bilna voice recognition system, and there may be some incorrect words, spellings, and punctuation that were not noted in checking the note before saving. [facility] 05-27-2025 History of Presen t illness Narrative HISTORY OF PRESENT ILLNESS: Ms. Raya Dominguez is a 59-year-old female with a past medical history of retention who has been diagnosed with essential thrombocytosis. Patient has been seen by Dr. Tomas. For complete details please see Dr. Tomas's note dated 10/16/2023. Patient currently is on Hydrea. She reports tolerating this well. She is without complaint. She was initially diagnosed with essential thrombocytosis in 10/2009. Patient initially was reluctant to start on Hydrea. He was just managed with observation until April 14, 2020 when she agreed to start on Hydrea. Patient's doses have gradually increased. Patient currently is taking Hydrea 500 mg twice BID Monday through and 1 tablet (500 mg )on Monday. She now returns CURRENT STATUS: Patient appears to be tolerating the Hydrea well. Patient is currently taking aspirin a day. She is currently without complaint. ECOG PERFORMANCE STATUS: 0- Fully active, able to carry on all pre-disease performance w/o restriction. Social History Tobacco Use Smoking status: Never Smokeless tobacco: Never Substance Use Topics Alcohol use: No Drug use: No FAMILY HISTORY Problem Relation Age of Onset Thyroid Mother Cancer Father lung Hypertension Father Hypertension Sister Stroke Paternal Grandmother PAST MEDICAL HISTORY Diagnosis Date Hypertension Other acute pain 01/02/2012 Thrombocythemia (HCC) PHYSICAL EXAM: BP 133/86 Pulse 74 Temp (Src) 97 (Temporal) Resp 20 Wt 234 lb 12.6 oz (106.5kg) SpO2 98% CONSTITUTIONAL: Awake, alert, oriented. HEAD (Incl. face): Normocephalic; Atraumatic. EYES: Pupils are reactive. No scleral icterus. HEENT: No oral exudates. NECK: No thyromegaly. No JVD. HEMATOLOGY/LYMPHATIC: No petechiae or purpura. No tender or palpable lymph nodes in the cervical, supraclavicular, axillary or inguinal areas. RESPIRATORY: Lungs are clear to auscultation. CARDIOVASCULAR: Regular rate and rhythm. 2 + radial pulse. ABDOMEN: Non-tender, soft, positive bowel sounds. BACK/SPINE: No kyphosis or scoliosis. Non tender to palpation. MUSCULOSKELETAL: No tenderness or swelling, normal range of motion without obvious weakness. EXTREMITIES: No cyanosis, clubbing INTEGUMENTARY: No rashes or masses. NEURO: No sensory or motor deficits, normal cerebellar function, normal gait, cranial nerves intact. PSYCHIATRIC: Pleasant affect. No signs of agitation. LABS: Latest Reference Range & Units 05/27/25 12:29 05/27/25 12:30 Sodium 136 - 144 mmol/L 139 Potassium 3.7 - 5.1 mmol/L 4.1 Chloride 98 - 107 mmol/L 101 CO2 22 - 30 mmol/L 26 BUN 7 - 21 mg/dL 16 Creatinine 0.58 - 0.96 mg/dL 0.60 Glucose 74 - 99 mg/dL 94 Protein, Total 6.3 - 8.0 g/dL 7.2 Calcium 8.5 - 10.2 mg/dL 9.7 Albumin 3.9 - 4.9 g/dL 4.6 Bilirubin, Total 0.2 - 1.3 mg/dL 0.7 Alkaline Phosphatase 34 - 123 U/L 89 ALT 7 - 38 U/L 33 AST 13 - 35 U/L 29 Anion Gap 8 - 15 mmol/L 12 eGFR >=60 mL/min/1.73m 103 WBC 3.70 - 11.00 k/uL 6.76 RBC 3.90 - 5.20 m/uL 4.10 Hemoglobin 11.5 - 15.5 g/dL 14.8 Hematocrit 36.0 - 46.0 % 42.5 Platelet Count 150 - 400 k/uL 435 (H) MCV 80.0 - 100.0 fL 103.7 (H) MCH 26.0 - 34.0 pg 36.1 (H) MCHC 30.5 - 36.0 g/dL 34.8 MPV 9.0 - 12.7 fL 8.9 (L) RDW-CV 11.5 - 15.0 % 13.0 DTYPE Auto Neut% % 57.2 Abs Neut (ANC) 1.45 - 7.50 k/uL 3.86 Lymph% % 33.3 Abs Lymph 1.00 - 4.00 k/uL 2.25 [place]% % 5.3 Abs [place] <0.87 k/uL 0.36 Eosin% % 2.5 Abs Eosin <0.46 k/uL 0.17 Baso% % 0.7 Abs Baso <0.11 k/uL 0.05 Immature Gran % % 1.0 IMMATURE GRANS (ABS) <0.10 k/uL 0.07 NRBC /100 WBC 0.0 Absolute nRBC <0.01 k/uL <0.01 (H): Data is abnormally high (L): Data is abnormally low ASSESSMENT / PLAN: Esssential thrombocytosis, JAK2 mutated. She will now take 1000 mg Monday through Monday 500 mg on Monday. Suspect patient's previous elevation of platelet count was related to the steroids. Her platelet count is back in the normal range. Will continue on current dose. Return to see me in 3 months. Some Elements Copied from my note previous note, February 25, 2025. I have updated where appropriate, and all reflect current medical decision making from today, May 27, 2025 Jay Rodgers MD This note was partially generated using Bilna voice recognition system, and there may be some incorrect words, spellings, and punctuation that were not noted in checking the note before saving. documented in this encounter [facility] 04-11-2025 History of Presen t illness Narrative Subjective Patient ID: Raya Dominguez is a 59 y.o. female who presents for Follow-up (6 month follow up). HPI Since the last office visit there have been no interval operations, hospitalizations, important illnesses or injuries. HTN-Takes and tolerates meds without side effects. No alcohol. no tobacco. Now on week 2 of exercise. low salt. Reviewed recommendation for 150 minutes of exercise per week including 2 days of weight training if over age 50 appropriate labs for hypertension are ordered by [facility] oncology and on file Thrombocytosis - per dr rodgers Review of Systems General-no fatigue weight to within 10 pounds ENT no problems with vision swallowing Cardiac no chest pains palpitations change in exercise tolerance or capacity Pulmonary no cough shortness of breath GI no heartburn or abdominal pain Musculoskeletal no joint pains Objective BP 118/78 Pulse 84 Ht 1.626 m (5' 4) Wt 106 kg (233 lb 6.4 oz) SpO2 96% BMI 40.06 kg/m Physical Exam General: Alert, No acute distress. Appears stated age Eye: Pupils are equal, round and reactive to light, Extraocular movements are intact, Normal conjunctiva. Neck: Supple, Non-tender, No carotid bruit, No jugular venous distention, No lymphadenopathy, No thyromegaly. Respiratory: Lungs are clear to auscultation, Respirations are non-labored, Breath sounds are equal. Cardiovascular: Normal rate, Regular rhythm, No murmur. Gastrointestinal: Soft, Non-tender, No organomegaly. No solid or pulsatile mass Integumentary: Warm, Dry. No concerning lesions on exposed areas Neurologic: Alert, Oriented. Gross and fine motor intact, CN 2-12 intact Psychiatric: Cooperative, Appropriate mood & affect. Assessment/Plan Problem List Items Addressed This Visit ICD-10-CM Hypertension I10 Thrombocythemia D75.839 Essential (hemorrhagic) thrombocythemia D47.3 documented in this encounter [facility] Work Phone: 02-25-2025 History of Presen t illness Narrative HISTORY OF PRESENT ILLNESS: Ms. Raya Dominguez is a 59-year-old female with a past medical history of retention who has been diagnosed with essential thrombocytosis. Patient has been seen by Dr. Tomas. For complete details please see Dr. Tomas's note dated 10/16/2023. Patient currently is on Hydrea. She reports tolerating this well. She is without complaint. She was initially diagnosed with essential thrombocytosis in 10/2009. Patient initially was reluctant to start on Hydrea. He was just managed with observation until April 14, 2020 when she agreed to start on Hydrea. Patient's doses have gradually increased. Patient currently is taking Hydrea 500 mg twice BID Monday through and 1 tablet (500 mg )on Monday. She now returns CURRENT STATUS: Patient appears to be tolerating the Hydrea well. Patient is currently taking aspirin a day. She is currently without complaint. ECOG PERFORMANCE STATUS: 0- Fully active, able to carry on all pre-disease performance w/o restriction. Social History Tobacco Use Smoking status: Never Smokeless tobacco: Never Substance Use Topics Alcohol use: No Drug use: No FAMILY HISTORY Problem Relation Age of Onset Thyroid Mother Cancer Father lung Hypertension Father Hypertension Sister Stroke Paternal Grandmother PAST MEDICAL HISTORY Diagnosis Date Hypertension Other acute pain 01/02/2012 Thrombocythemia (HCC) PHYSICAL EXAM: BP 139/88 Pulse 77 Temp (Src) 98 (Temporal) Resp 16 Wt 232 lb 5.8 oz (105.4kg) SpO2 98% CONSTITUTIONAL: Awake, alert, oriented. HEAD (Incl. face): Normocephalic; Atraumatic. EYES: Pupils are reactive. No scleral icterus. HEENT: No oral exudates. NECK: No thyromegaly. No JVD. HEMATOLOGY/LYMPHATIC: No petechiae or purpura. No tender or palpable lymph nodes in the cervical, supraclavicular, axillary or inguinal areas. RESPIRATORY: Lungs are clear to auscultation. CARDIOVASCULAR: Regular rate and rhythm. 2 + radial pulse. ABDOMEN: Non-tender, soft, positive bowel sounds. BACK/SPINE: No kyphosis or scoliosis. Non tender to palpation. MUSCULOSKELETAL: No tenderness or swelling, normal range of motion without obvious weakness. EXTREMITIES: No cyanosis, clubbing INTEGUMENTARY: No rashes or masses. NEURO: No sensory or motor deficits, normal cerebellar function, normal gait, cranial nerves intact. PSYCHIATRIC: Pleasant affect. No signs of agitation. LABS: Latest Reference Range & Units 02/25/25 12:32 WBC 3.70 - 11.00 k/uL 6.44 RBC 3.90 - 5.20 m/uL 3.96 Hemoglobin 11.5 - 15.5 g/dL 14.6 Hematocrit 36.0 - 46.0 % 42.3 Platelet Count 150 - 400 k/uL 437 (H) MCV 80.0 - 100.0 fL 106.8 (H) MCH 26.0 - 34.0 pg 36.9 (H) MCHC 30.5 - 36.0 g/dL 34.5 MPV 9.0 - 12.7 fL 8.4 (L) RDW-CV 11.5 - 15.0 % 11.9 DTYPE Auto Neut% % 59.8 Abs Neut (ANC) 1.45 - 7.50 k/uL 3.86 Lymph% % 32.3 Abs Lymph 1.00 - 4.00 k/uL 2.08 [place]% % 4.7 Abs [place] <0.87 k/uL 0.30 Eosin% % 2.2 Abs Eosin <0.46 k/uL 0.14 Baso% % 0.8 Abs Baso <0.11 k/uL 0.05 Immature Gran % % 0.2 IMMATURE GRANS (ABS) <0.10 k/uL <0.03 NRBC /100 WBC 0.0 Absolute nRBC <0.01 k/uL <0.01 (H): Data is abnormally high (L): Data is abnormally low ASSESSMENT / PLAN: Esssential thrombocytosis, JAK2 mutated. She will now take 1000 mg Monday through Monday 500 mg on Monday. Suspect patient's previous elevation of platelet count was related to the steroids. His platelet count is back in the normal range. Will continue on current dose. Return to see me in 3 months. Some Elements Copied from my note previous note, August 28, 2024. I have updated where appropriate, and all reflect current medical decision making from today, February 25, 2025. Jay Rodgers MD This note was partially generated using Bilna voice recognition system, and there may be some incorrect words, spellings, and punctuation that were not noted in checking the note before saving. documented in this encounter [facility] 02-25-2025 Note HNO ID: [id number] Author: JAY RODGERS, ? Service: ? Author Type: Physician Type: Progress Notes Filed: 02/25/2025 13:13 Note Text: HISTORY OF PRESENT ILLNESS: Ms. Raya Dominguez is a 59-year-old female with a past medical history of retention who has been diagnosed with essential thrombocytosis. Patient has been seen by Dr. Tomas. For complete details please see Dr. Tomas's note dated 10/16/2023. Patient currently is on Hydrea. She reports tolerating this well. She is without complaint. She was initially diagnosed with essential thrombocytosis in 10/2009. Patient initially was reluctant to start on Hydrea. He was just managed with observation until April 14, 2020 when she agreed to start on Hydrea. Patient's doses have gradually increased. Patient currently is taking Hydrea 500 mg twice BID Monday through and 1 tablet (500 mg )onSunday. She now returns CURRENT STATUS: Patient appears to be tolerating the Hydrea well. Patient is currently taking aspirin a day. She is currently without complaint. ECOG PERFORMANCE STATUS: 0- Fully active, able to carry on all pre-disease performance w/o restriction. Social History Tobacco Use Smoking status: Never Smokeless tobacco: Never Substance Use Topics Alcohol use: No Drug use: No FAMILY HISTORY Problem Relation Age of Onset Thyroid Mother Cancer Father lung Hypertension Father Hypertension Sister Stroke Paternal Grandmother PAST MEDICAL HISTORY Diagnosis Date Hypertension Other acute pain 01/02/2012 Thrombocythemia (HCC) PHYSICAL EXAM: BP 139/88 Pulse 77 Temp (Src) 98 (Temporal) Resp 16 Wt 232 lb 5.8 oz (105.4kg) SpO2 98% CONSTITUTIONAL: Awake, alert, oriented. HEAD (Incl. face): Normocephalic; Atraumatic. EYES: Pupils are reactive. No scleral icterus. HEENT: No oral exudates. NECK: No thyromegaly. No JVD. HEMATOLOGY/LYMPHATIC: No petechiae or purpura. No tender or palpable lymph nodes in the cervical, supraclavicular, axillary or inguinal areas. RESPIRATORY: Lungs are clear to auscultation. CARDIOVASCULAR: Regular rate and rhythm. 2 + radial pulse. ABDOMEN: Non-tender, soft, positive bowel sounds. BACK/SPINE: No kyphosis or scoliosis. Non tender to palpation. MUSCULOSKELETAL: No tenderness or swelling, normal range of motion without obvious weakness. EXTREMITIES: No cyanosis, clubbing INTEGUMENTARY: No rashes or masses. NEURO: No sensory or motor deficits, normal cerebellar function, normal gait, cranial nerves intact. PSYCHIATRIC: Pleasant affect. No signs of agitation. LABS: Latest Reference Range AND Units 02/25/25 12:32 WBC 3.70 - 11.00 k/uL 6.44 RBC 3.90 - 5.20 m/uL 3.96 Hemoglobin 11.5 - 15.5 g/dL 14.6 Hematocrit 36.0 - 46.0 % 42.3 Platelet Count 150 - 400 k/uL 437 (H) MCV 80.0 - 100.0 fL 106.8 (H) MCH 26.0 - 34.0 pg 36.9 (H) MCHC 30.5 - 36.0 g/dL 34.5 MPV 9.0 - 12.7 fL 8.4 (L) RDW-CV 11.5 - 15.0 % 11.9 DTYPE Auto Neut% % 59.8 Abs Neut (ANC) 1.45 - 7.50 k/uL 3.86 Lymph% % 32.3 Abs Lymph 1.00 - 4.00 k/uL 2.08 [place]% % 4.7 Abs [place] <0.87 k/uL 0.30 Eosin% % 2.2 Abs Eosin <0.46 k/uL 0.14 Baso% % 0.8 Abs Baso <0.11 k/uL 0.05 Immature Gran % % 0.2 IMMATURE GRANS (ABS) <0.10 k/uL <0.03 NRBC /100 WBC 0.0 Absolute nRBC <0.01 k/uL <0.01 (H): Data is abnormally high (L): Data is abnormally low ASSESSMENT / PLAN: Esssential thrombocytosis, JAK2 mutated. She will now take 1000 mg Monday through Monday 500 mg on Monday. Suspect patient's previous elevation of platelet count was related to the steroids. His platelet count is back in the normal range. Will continue on current dose. Return to see me in 3 months. Some Elements Copied from my note previous note, August 28, 2024. I have updated where appropriate, and all reflect current medical decision making from today, February 25, 2025. Jay Rodgers MD This note was partially generated using Bilna voice recognition system, and there may be some incorrect words, spellings, and punctuation that were not noted in checking the note before saving. [facility] 11-28-2024 Telephone encounter Note Patient aware of results and new prescription. AA [facility] 11-28-2024 Miscellaneous Notes Patient aware of results and new prescription. AA Lab results faxed to pcp and script sent to Dr Rodgers for sig. AA ----- Message from Jay Rodgers sent at 11/26/2024 4:22 PM EST ----- Fax to fmd. Start kcl 10 meq daily. documented in this encounter [facility] 11-28-2024 Telephone encounter Note Jay Rodgers [facility] Triage Pool Fax to fmd. Start kcl 10 meq daily. [facility] 11-28-2024 Miscellaneous Notes Jay Rodgers [facility] Triage Pool Fax to fmd. Start kcl 10 meq daily. documented in this encounter [facility] 11-28-2024 Telephone encounter Note Lab results faxed to pcp and script sent to Dr Rodgers for sig. AA [facility] 11-28-2024 Telephone encounter Note ----- Message from Jay Rodgers sent at 11/26/2024 4:22 PM EST ----- Fax to fmd. Start kcl 10 meq daily. [facility] 11-26-2024 Note HNO ID: [id number] Author: TAMIA ENCARNACION APRN.BLANKING MACHINE OPERATOR Service: ? Author Type: Nurse Practitioner Type: Progress Notes Filed: 11/26/2024 17:50 Note Text: HISTORY OF PRESENT ILLNESS: Ms. Raya Dominguez is a 59-year-old female with a past medical history of retention who has been diagnosed with essential thrombocytosis. Patient has been seen by Dr. Tomas. For complete details please see Dr. Tomas's note dated 10/16/2023. Patient currently is on Hydrea. She reports tolerating this well. She is without complaint. She was initially diagnosed with essential thrombocytosis in 10/2009. Patient initially was reluctant to start on Hydrea. He was just managed with observation until April 14, 2020 when she agreed to start on Hydrea. Patient's doses have gradually increased. Patient currently is taking Hydrea 500 mg twice BID Monday through Monday and 1 tablet (500 mg )on Monday and Monday. She now returns CURRENT STATUS: She presents today for 3-month follow-up visit and discussion of repeat labs. She continues taking Hydrea 1000 every day except on Saturdays she takes 500 mg. She denies any new complaints. She also is taking a full-strength aspirin daily. She denies any abnormal bleeding or bruising. ROS: CONSTITUTIONAL: No fever, chills, night sweats or excessive fatigue. EYES: No significant visual difficulties. No diplopia. No blurred vision HEENT: No sore mouth or throat. No sinus drainage. ENDOCRINE: No hot flashes or night sweats. Denies excessive thirst. HEMATOLOGY/LYMPHOLOGY: No easy bruising or bleeding, The patient denies any tender or palpable lymph nodes. RESPIRATORY: Mild dyspnea on exertion,no chest pain or hemoptysis. CARDIOVASCULAR: Denies palpitations orthopnea. GASTROINTESTINAL: Denies GI bleeding or change in bowel habits. Denies heartburn or abdominal pain. MUSCULOSKELETAL: No joint pain, swelling or redness. No decreased range of motion. SKIN: No chronic rashes, inflammation, ulcerations or skin changes. NEURO: No headaches. Denies extremity weakness or numbness. ECOG PERFORMANCE STATUS: 0- Fully active, able to carry on all pre-disease performance w/o restriction. Social History Tobacco Use Smoking status: Never Smokeless tobacco: Never Substance Use Topics Alcohol use: No Drug use: No FAMILY HISTORY Problem Relation Age of Onset Thyroid Mother Cancer Father lung Hypertension Father Hypertension Sister Stroke Paternal Grandmother PAST MEDICAL HISTORY Diagnosis Date Hypertension Other acute pain 01/02/2012 Thrombocythemia (HCC) PHYSICAL EXAM: BP 125/82 Pulse 78 Temp 98.3 Resp 16 Wt 229 lb 11.5 oz (104.2kg) SpO2 98% CONSTITUTIONAL: Awake, alert, oriented. HEAD (Incl. face): Normocephalic; Atraumatic. EYES: Pupils are reactive. No scleral icterus. HEENT: No oral exudates. HEMATOLOGY/LYMPHATIC: No petechiae or purpura. No tender or palpable lymph nodes in the cervical, supraclavicular, axillary or inguinal areas. RESPIRATORY: Lungs are clear to auscultation. CARDIOVASCULAR: Regular rate and rhythm. 2 + radial pulse. Murmur present. ABDOMEN: Non-tender, soft, positive bowel sounds. MUSCULOSKELETAL: No tenderness or swelling, normal range of motion without obvious weakness. EXTREMITIES: No cyanosis, clubbing INTEGUMENTARY: No rashes or masses. No skin ulcers. NEURO: No sensory or motor deficits, normal cerebellar function, normal gait. PSYCHIATRIC: Pleasant affect. No signs of agitation. LABS: Latest Ref [facility] 11/26/2024 WBC 3.70 - 11.00 k/uL 5.66 RBC 3.90 - 5.20 m/uL 3.83 (L) Hemoglobin 11.5 - 15.5 g/dL 14.5 Hematocrit 36.0 - 46.0 % 41.8 MCV 80.0 - 100.0 fL 109.1 (H) MCH 26.0 - 34.0 pg 37.9 (H) MCHC 30.5 - 36.0 g/dL 34.7 RDW-CV 11.5 - 15.0 % 12.6 Platelet Count 150 - 400 k/uL 353 MPV 9.0 - 12.7 fL 8.3 (L) Neut% % 64.7 Abs Neut (ANC) 1.45 - 7.50 k/uL 3.67 Lymph% % 27.2 Abs Lymph 1.00 - 4.00 k/uL 1.54 [place]% % 4.1 Abs [place] <0.87 k/uL 0.23 Eosin% % 2.5 Abs Eosin <0.46 k/uL 0.14 Baso% % 1.1 Abs Baso <0.11 k/uL 0.06 Immature Gran % % 0.4 IMMATURE GRANS (ABS) <0.10 k/uL <0.03 NRBC /100 WBC 0.0 Absolute nRBC <0.01 k/uL <0.01 DTYPE Auto Protein, Total 6.3 - 8.0 g/dL 6.8 Albumin 3.9 - 4.9 g/dL 4.4 Calcium 8.5 - 10.2 mg/dL 9.5 Bilirubin, Total 0.2 - 1.3 mg/dL 0.6 Alkaline Phosphatase 34 - 123 U/L 91 AST 13 - 35 U/L 25 ALT 7 - 38 U/L 30 Glucose 74 - 99 mg/dL 83 BUN 7 - 21 mg/dL 18 Creatinine 0.58 - 0.96 mg/dL 0.94 Sodium 136 - 144 mmol/L 144 Potassium 3.7 - 5.1 mmol/L 3.4 (L) Chloride 98 - 107 mmol/L 105 CO2 22 - 30 mmol/L 31 (H) Anion Gap 8 - 15 mmol/L 8 eGFR >=60 mL/min/1.73m? 70 Legend: (L) Low (H) High ASSESSMENT / PLAN: Esssential thrombocytosis, JAK2 mutated. She will now take 1000 mg daily except for 500 mg on Saturdays. Labs remain stable. She denies needing refill today. Hypokalemia. Her potassium is 3.4 today. She denies any recent diarrhea or (more content not included)... [facility] 11-26-2024 History of Presen t illness Narrative HISTORY OF PRESENT ILLNESS: Ms. Raya Dominguez is a 59-year-old female with a past medical history of retention who has been diagnosed with essential thrombocytosis. Patient has been seen by Dr. Tomas. For complete details please see Dr. Tomas's note dated 10/16/2023. Patient currently is on Hydrea. She reports tolerating this well. She is without complaint. She was initially diagnosed with essential thrombocytosis in 10/2009. Patient initially was reluctant to start on Hydrea. He was just managed with observation until April 14, 2020 when she agreed to start on Hydrea. Patient's doses have gradually increased. Patient currently is taking Hydrea 500 mg twice BID Monday through Monday and 1 tablet (500 mg )on Monday and Monday. She now returns CURRENT STATUS: She presents today for 3-month follow-up visit and discussion of repeat labs. She continues taking Hydrea 1000 every day except on Saturdays she takes 500 mg. She denies any new complaints. She also is taking a full-strength aspirin daily. She denies any abnormal bleeding or bruising. ROS: CONSTITUTIONAL: No fever, chills, night sweats or excessive fatigue. EYES: No significant visual difficulties. No diplopia. No blurred vision HEENT: No sore mouth or throat. No sinus drainage. ENDOCRINE: No hot flashes or night sweats. Denies excessive thirst. HEMATOLOGY/LYMPHOLOGY: No easy bruising or bleeding, The patient denies any tender or palpable lymph nodes. RESPIRATORY: Mild dyspnea on exertion,no chest pain or hemoptysis. CARDIOVASCULAR: Denies palpitations orthopnea. GASTROINTESTINAL: Denies GI bleeding or change in bowel habits. Denies heartburn or abdominal pain. MUSCULOSKELETAL: No joint pain, swelling or redness. No decreased range of motion. SKIN: No chronic rashes, inflammation, ulcerations or skin changes. NEURO: No headaches. Denies extremity weakness or numbness. ECOG PERFORMANCE STATUS: 0- Fully active, able to carry on all pre-disease performance w/o restriction. Social History Tobacco Use Smoking status: Never Smokeless tobacco: Never Substance Use Topics Alcohol use: No Drug use: No FAMILY HISTORY Problem Relation Age of Onset Thyroid Mother Cancer Father lung Hypertension Father Hypertension Sister Stroke Paternal Grandmother PAST MEDICAL HISTORY Diagnosis Date Hypertension Other acute pain 01/02/2012 Thrombocythemia (HCC) PHYSICAL EXAM: BP 125/82 Pulse 78 Temp 98.3 Resp 16 Wt 229 lb 11.5 oz (104.2kg) SpO2 98% CONSTITUTIONAL: Awake, alert, oriented. HEAD (Incl. face): Normocephalic; Atraumatic. EYES: Pupils are reactive. No scleral icterus. HEENT: No oral exudates. HEMATOLOGY/LYMPHATIC: No petechiae or purpura. No tender or palpable lymph nodes in the cervical, supraclavicular, axillary or inguinal areas. RESPIRATORY: Lungs are clear to auscultation. CARDIOVASCULAR: Regular rate and rhythm. 2 + radial pulse. Murmur present. ABDOMEN: Non-tender, soft, positive bowel sounds. MUSCULOSKELETAL: No tenderness or swelling, normal range of motion without obvious weakness. EXTREMITIES: No cyanosis, clubbing INTEGUMENTARY: No rashes or masses. No skin ulcers. NEURO: No sensory or motor deficits, normal cerebellar function, normal gait. PSYCHIATRIC: Pleasant affect. No signs of agitation. LABS: Latest Ref Rng 11/26/2024 WBC 3.70 - 11.00 k/uL 5.66 RBC 3.90 - 5.20 m/uL 3.83 (L) Hemoglobin 11.5 - 15.5 g/dL 14.5 Hematocrit 36.0 - 46.0 % 41.8 MCV 80.0 - 100.0 fL 109.1 (H) MCH 26.0 - 34.0 pg 37.9 (H) MCHC 30.5 - 36.0 g/dL 34.7 RDW-CV 11.5 - 15.0 % 12.6 Platelet Count 150 - 400 k/uL 353 MPV 9.0 - 12.7 fL 8.3 (L) Neut% % 64.7 Abs Neut (ANC) 1.45 - 7.50 k/uL 3.67 Lymph% % 27.2 Abs Lymph 1.00 - 4.00 k/uL 1.54 [place]% % 4.1 Abs [place] <0.87 k/uL 0.23 Eosin% % 2.5 Abs Eosin <0.46 k/uL 0.14 Baso% % 1.1 Abs Baso <0.11 k/uL 0.06 Immature Gran % % 0.4 IMMATURE GRANS (ABS) <0.10 k/uL <0.03 NRBC /100 WBC 0.0 Absolute nRBC <0.01 k/uL <0.01 DTYPE Auto Protein, Total 6.3 - 8.0 g/dL 6.8 Albumin 3.9 - 4.9 g/dL 4.4 Calcium 8.5 - 10.2 mg/dL 9.5 Bilirubin, Total 0.2 - 1.3 mg/dL 0.6 Alkaline Phosphatase 34 - 123 U/L 91 AST 13 - 35 U/L 25 ALT 7 - 38 U/L 30 Glucose 74 - 99 mg/dL 83 BUN 7 - 21 mg/dL 18 Creatinine 0.58 - 0.96 mg/dL 0.94 Sodium 136 - 144 mmol/L 144 Potassium 3.7 - 5.1 mmol/L 3.4 (L) Chloride 98 - 107 mmol/L 105 CO2 22 - 30 mmol/L 31 (H) Anion Gap 8 - 15 mmol/L 8 eGFR >=60 mL/min/1.73m 70 Legend: (L) Low (H) High ASSESSMENT / PLAN: Esssential thrombocytosis, JAK2 mutated. She will now take 1000 mg daily except for 500 mg on Saturdays. Labs remain stable. She denies needing refill today. Hypokalemia. Her potassium is 3.4 today. She denies any recent diarrhea or medication changes. She is taking losartan with hydrochlorothiazide. I offered a short-term course of oral potassium however she preferred to receive a list of foods higher in potassium. She will return in 3 months for repeat labs and a follow-up visit. All documentation from previous visit of 08/28/2024 Dr. Rodgers was copied and pasted, documentation has been reviewed and edited as necessary for today's visit. Tamia Encarnacion CNP this note was partially generated using [employer] voice recognition system, and there may be some incorrect words, spellings, and punctuation that were not noted in checking the note before saving. documented in this encounter [facility] 08-30-2024 History of Presen t illness Narrative Subjective Patient ID: Raya Dominguez is a 59 y.o. female who presents for Follow-up (6 mo). HPI Since the last office visit there have been no interval operations, hospitalizations, important illnesses or injuries. 1 mo ago had dizzy spell, sudden onset,for 45 min., 24 hrs to resolve completely. No other neurologic symptoms except during these episodes. No headache afterwards. Essential thrombocytopenia is stable q3m hydrea HTN-Takes and tolerates meds without side effects. No alcohol. no tobacco. no exercise. low salt. Reviewed recommendation for 150 minutes of exercise per week including 2 days of weight training if over age 50 Wari- rare use, for allergy or infectioin Review of Systems General-no fatigue weight to within 10 pounds ENT no problems with vision swallowing Cardiac no chest pains palpitations change in exercise tolerance or capacity Pulmonary no cough shortness of breath GI no heartburn or abdominal pain Musculoskeletal no joint pains Objective BP 120/80 Pulse 86 Ht 1.626 m (5' 4) Wt 103 kg (227 lb 9.6 oz) SpO2 96% BMI 39.07 kg/m Physical Exam General: Alert, No acute distress. Appears stated age Eye: Pupils are equal, round and reactive to light, Extraocular movements are intact, Normal conjunctiva. Neck: Supple, Non-tender, No carotid bruit, No jugular venous distention, No lymphadenopathy, No thyromegaly. Respiratory: Lungs are clear to auscultation, Respirations are non-labored, Breath sounds are equal. Cardiovascular: Normal rate, Regular rhythm, No murmur. Gastrointestinal: Soft, Non-tender, No organomegaly. No solid or pulsatile mass Integumentary: Warm, Dry. No concerning lesions on exposed areas Neurologic: Alert, Oriented. Gross and fine motor intact, CN 2-12 intact Psychiatric: Cooperative, Appropriate mood & affect. Assessment/Plan Problem List Items Addressed This Visit ICD-10-CM Hypertension I10 Relevant Orders Follow Up In Primary Care Thrombocythemia D75.839 Relevant Orders Follow Up In Primary Care Other Visit Diagnoses Codes Wheezing-associated respiratory infection (WARI) J98.8 Relevant Orders Follow Up In Primary Care documented in this encounter [facility] Work Phone: 08-28-2024 History of Presen t illness Narrative HISTORY OF PRESENT ILLNESS: Ms. Raya Dominguez is a 59-year-old female with a past medical history of retention who has been diagnosed with essential thrombocytosis. Patient has been seen by Dr. Tomas. For complete details please see Dr. Tomas's note dated 10/16/2023. Patient currently is on Hydrea. She reports tolerating this well. She is without complaint. She was initially diagnosed with essential thrombocytosis in 10/2009. Patient initially was reluctant to start on Hydrea. He was just managed with observation until April 14, 2020 when she agreed to start on Hydrea. Patient's doses have gradually increased. Patient currently is taking Hydrea 500 mg twice BID Monday through Monday and 1 tablet (500 mg )on Monday and Monday. She now returns CURRENT STATUS: Patient appears to be tolerating the Hydrea well. Patient is currently taking aspirin a day. She is currently without complaint. Further infections. She reports feeling well. She continues to work in [employer]. She reports that her and her have the same birthday. ROS: CONSTITUTIONAL: No fever, chills, night sweats or excessive fatigue. EYES: No significant visual difficulties. No diplopia. No blurred vision HEENT: No sore mouth or throat. No sinus drainage. ENDOCRINE: No hot flashes or night sweats. Denies excessive thirst. HEMATOLOGY/LYMPHOLOGY: No easy bruising or bleeding, The patient denies any tender or palpable lymph nodes. RESPIRATORY: No dyspnea on exertion, chest pain or hemoptysis. CARDIOVASCULAR: Denies palpitations orthopnea. GASTROINTESTINAL: Denies GI bleeding or change in bowel habits. Denies heartburn or abdominal pain. MUSCULOSKELETAL: No joint pain, swelling or redness. No decreased range of motion. SKIN: No chronic rashes, inflammation, ulcerations or skin changes. NEURO: No headaches. Denies extremity weakness or numbness. Normal gait. All other reviewed and negative other than HPI. ECOG PERFORMANCE STATUS: 0- Fully active, able to carry on all pre-disease performance w/o restriction. Social History Tobacco Use Smoking status: Never Smokeless tobacco: Never Substance Use Topics Alcohol use: No Drug use: No FAMILY HISTORY Problem Relation Age of Onset Thyroid Mother Cancer Father lung Hypertension Father Hypertension Sister Stroke Paternal Grandmother PAST MEDICAL HISTORY Diagnosis Date Hypertension Other acute pain 01/02/2012 Thrombocythemia (HCC) PHYSICAL EXAM: BP 118/82 Pulse 78 Temp (Src) 98 (Oral) Resp 16 Ht 5' 3.976 (1.63m) Wt 228 lb 2.8 oz (103.5kg) SpO2 98% BMI 39.20 kg/(m^2). CONSTITUTIONAL: Awake, alert, oriented. HEAD (Incl. face): Normocephalic; Atraumatic. EYES: Pupils are reactive. No scleral icterus. HEENT: No oral exudates. NECK: No thyromegaly. No JVD. HEMATOLOGY/LYMPHATIC: No petechiae or purpura. No tender or palpable lymph nodes in the cervical, supraclavicular, axillary or inguinal areas. RESPIRATORY: Lungs are clear to auscultation. CARDIOVASCULAR: Regular rate and rhythm. 2 + radial pulse. ABDOMEN: Non-tender, soft, positive bowel sounds. BACK/SPINE: No kyphosis or scoliosis. Non tender to palpation. MUSCULOSKELETAL: No tenderness or swelling, normal range of motion without obvious weakness. EXTREMITIES: No cyanosis, clubbing INTEGUMENTARY: No rashes or masses. NEURO: No sensory or motor deficits, normal cerebellar function, normal gait, cranial nerves intact. PSYCHIATRIC: Pleasant affect. No signs of agitation. LABS: Latest Reference Range & Units 08/28/24 12:40 WBC 3.70 - 11.00 k/uL 6.70 (P) RBC 3.90 - 5.20 m/uL 3.88 (L) (P) Hemoglobin 11.5 - 15.5 g/dL 14.8 (P) Hematocrit 36.0 - 46.0 % 42.7 (P) Platelet Count 150 - 400 k/uL 409 (H) (P) MCV 80.0 - 100.0 fL 110.1 (H) (P) MCH 26.0 - 34.0 pg 38.1 (H) (P) MCHC 30.5 - 36.0 g/dL 34.7 (P) MPV 9.0 - 12.7 fL 8.9 (L) (P) RDW-CV 11.5 - 15.0 % 12.9 (P) (L): Data is abnormally low (H): Data is abnormally high (P): Preliminary ASSESSMENT / PLAN: Esssential thrombocytosis, JAK2 mutated. She will now take 1000 mg Monday through Monday 500 mg on Monday. Suspect patient's previous elevation of platelet count was related to the steroids. His platelet count is back in the normal range. Will continue on current dose. Return to see me in 3 months. Some Elements Copied from my note previous note, May 20, 2024. I have updated where appropriate, and all reflect current medical decision making from today, August 28, 2024 Jay Rodgers MD This note was partially generated using [employer] voice recognition system, and there may be some incorrect words, spellings, and punctuation that were not noted in checking the note before saving. documented in this encounter [facility] 05-20-2024 History of Presen t illness Narrative HISTORY OF PRESENT ILLNESS: Ms. Raya Dominguez is a 58-year-old female with a past medical history of retention who has been diagnosed with essential thrombocytosis. Patient has been seen by Dr. Tomas. For complete details please see Dr. Tomas's note dated 10/16/2023. Patient currently is on Hydrea. She reports tolerating this well. She is without complaint. She was initially diagnosed with essential thrombocytosis in 10/2009. Patient initially was reluctant to start on Hydrea. He was just managed with observation until April 14, 2020 when she agreed to start on Hydrea. Patient's doses have gradually increased. Patient currently is taking Hydrea 500 mg twice BID Monday through Monday and 1 tablet (500 mg )on Monday and Monday. She now returns CURRENT STATUS: Patient appears to be tolerating the Hydrea well. Patient is currently taking aspirin a day. She is currently without complaint. Further infections. She reports feeling well. She continues to work in [employer]. She reports that her and her have the same birthday. ROS: CONSTITUTIONAL: No fever, chills, night sweats or excessive fatigue. EYES: No significant visual difficulties. No diplopia. No blurred vision HEENT: No sore mouth or throat. No sinus drainage. ENDOCRINE: No hot flashes or night sweats. Denies excessive thirst. HEMATOLOGY/LYMPHOLOGY: No easy bruising or bleeding, The patient denies any tender or palpable lymph nodes. RESPIRATORY: No dyspnea on exertion, chest pain or hemoptysis. CARDIOVASCULAR: Denies palpitations orthopnea. GASTROINTESTINAL: Denies GI bleeding or change in bowel habits. Denies heartburn or abdominal pain. MUSCULOSKELETAL: No joint pain, swelling or redness. No decreased range of motion. SKIN: No chronic rashes, inflammation, ulcerations or skin changes. NEURO: No headaches. Denies extremity weakness or numbness. Normal gait. All other reviewed and negative other than HPI. ECOG PERFORMANCE STATUS: 0- Fully active, able to carry on all pre-disease performance w/o restriction. Social History Tobacco Use Smoking status: Never Smokeless tobacco: Never Substance Use Topics Alcohol use: No Drug use: No FAMILY HISTORY Problem Relation Age of Onset Thyroid Mother Cancer Father lung Hypertension Father Hypertension Sister Stroke Paternal Grandmother PAST MEDICAL HISTORY Diagnosis Date Hypertension Other acute pain 01/02/2012 Thrombocythemia (HCC) PHYSICAL EXAM: BP 109/74 Pulse 73 Temp (Src) 97.4 (Temporal) Resp 16 Ht 5' 3.976 (1.63m) Wt 225 lb 1.4 oz (102.1kg) SpO2 97% BMI 38.67 kg/(m^2). CONSTITUTIONAL: Awake, alert, oriented. HEAD (Incl. face): Normocephalic; Atraumatic. EYES: Pupils are reactive. No scleral icterus. HEENT: No oral exudates. NECK: No thyromegaly. No JVD. HEMATOLOGY/LYMPHATIC: No petechiae or purpura. No tender or palpable lymph nodes in the cervical, supraclavicular, axillary or inguinal areas. RESPIRATORY: Lungs are clear to auscultation. CARDIOVASCULAR: Regular rate and rhythm. 2 + radial pulse. ABDOMEN: Non-tender, soft, positive bowel sounds. BACK/SPINE: No kyphosis or scoliosis. Non tender to palpation. MUSCULOSKELETAL: No tenderness or swelling, normal range of motion without obvious weakness. EXTREMITIES: No cyanosis, clubbing INTEGUMENTARY: No rashes or masses. NEURO: No sensory or motor deficits, normal cerebellar function, normal gait, cranial nerves intact. PSYCHIATRIC: Pleasant affect. No signs of agitation. LABS: Latest Reference Range & Units 05/20/24 08:08 Sodium 136 - 144 mmol/L 141 Potassium 3.7 - 5.1 mmol/L 3.8 Chloride 98 - 107 mmol/L 105 CO2 22 - 30 mmol/L 26 BUN 7 - 21 mg/dL 15 Creatinine 0.58 - 0.96 mg/dL 0.66 Glucose 74 - 99 mg/dL 101 (H) Protein, Total 6.3 - 8.0 g/dL 6.9 Calcium 8.5 - 10.2 mg/dL 9.4 Albumin 3.9 - 4.9 g/dL 4.7 Bilirubin, Total 0.2 - 1.3 mg/dL 0.4 Alkaline Phosphatase 34 - 123 U/L 81 ALT 7 - 38 U/L 24 AST 13 - 35 U/L 24 Anion Gap 8 - 15 mmol/L 10 eGFR >=60 mL/min/1.73m 101 WBC 3.70 - 11.00 k/uL 7.42 RBC 3.90 - 5.20 m/uL 3.90 Hemoglobin 11.5 - 15.5 g/dL 14.8 Hematocrit 36.0 - 46.0 % 42.1 Platelet Count 150 - 400 k/uL 377 MCV 80.0 - 100.0 fL 107.9 (H) MCH 26.0 - 34.0 pg 37.9 (H) MCHC 30.5 - 36.0 g/dL 35.2 MPV 9.0 - 12.7 fL 8.6 (L) RDW-CV 11.5 - 15.0 % 12.3 DTYPE Auto Neut% % 64.8 Abs Neut (ANC) 1.45 - 7.50 k/uL 4.81 Lymph% % 26.1 Abs Lymph 1.00 - 4.00 k/uL 1.94 [place]% % 5.7 Abs [place] <0.87 k/uL 0.42 Eosin% % 2.4 Abs Eosin <0.46 k/uL 0.18 Baso% % 0.7 Abs Baso <0.11 k/uL 0.05 Immature Gran % % 0.3 IMMATURE GRANS (ABS) <0.10 k/uL <0.03 NRBC /100 WBC 0.0 Absolute nRBC <0.01 k/uL <0.01 (H): Data is abnormally high (L): Data is abnormally low ASSESSMENT / PLAN: Esssential thrombocytosis, JAK2 mutated. She will now take 1000 mg Monday through Monday 500 mg on Monday. Suspect patient's previous elevation of platelet count was related to the steroids. His platelet count is back in the normal range. Will continue on current dose. Return to see me in 3 months. Some Elements Copied from my note previous note,February 12, 2024 . I have updated where appropriate, and all reflect current medical decision making from today, May 20, 2024 Jay Rodgers MD This note was partially generated using [employer] voice recognition system, and there may be some incorrect words, spellings, and punctuation that were not noted in checking the note before saving. documented in this encounter [facility] 03-01-2024 History of Presen t illness Narrative Subjective Patient ID: Raya Dominguez is a 58 y.o. female who presents for Follow-up (6 MO FU ). HPI Since the last office visit there have been no interval operations, hospitalizations, important illnesses or injuries. Thrombocytopenia- stable, managed by Dr. Chaudhary Steroids used frequently with any resp illness . Had allergies as a child better as adult but now finding return of symptoms. Reviewed self start HTN-Takes and tolerates meds without side effects. No alcohol. no tobacco. no exercise. low salt. Reviewed recommendation for 150 minutes of exercise per week including 2 days of weight training if over age 50 Review of Systems General-no fatigue weight to within 10 pounds ENT no problems with vision swallowing Cardiac no chest pains palpitations change in exercise tolerance or capacity Pulmonary no cough shortness of breath GI no heartburn or abdominal pain Musculoskeletal no joint pains Objective BP 140/76 Pulse 81 Ht 1.626 m (5' 4) Wt 102 kg (224 lb 3.2 oz) SpO2 98% BMI 38.48 kg/m Physical Exam General: Alert, No acute distress. Appears stated age Eye: Pupils are equal, round and reactive to light, Extraocular movements are intact, Normal conjunctiva. Neck: Supple, Non-tender, No carotid bruit, No jugular venous distention, No lymphadenopathy, No thyromegaly. Respiratory: Lungs are clear to auscultation, Respirations are non-labored, Breath sounds are equal. Cardiovascular: Normal rate, Regular rhythm, No murmur. Gastrointestinal: Soft, Non-tender, No organomegaly. No solid or pulsatile mass Integumentary: Warm, Dry. No concerning lesions on exposed areas Neurologic: Alert, Oriented. Gross and fine motor intact, CN 2-12 intact Psychiatric: Cooperative, Appropriate mood & affect. Assessment/Plan Problem List Items Addressed This Visit ICD-10-CM Hypertension I10 Relevant Medications losartan-hydrochlorothiazide (Hyzaar) 50-12.5 mg tablet Other Relevant Orders Lipid Panel Thyroid Stimulating Hormone Follow Up In Primary Care - Established Thrombocythemia D75.839 Relevant Orders Follow Up In Primary Care - Established Essential (hemorrhagic) thrombocythemia (CMS/HCC) D47.3 Other Visit Diagnoses Codes Wheezing-associated respiratory infection (WARI) - Primary J98.8 Relevant Medications albuterol 90 mcg/actuation inhaler predniSONE (Deltasone) 10 mg tablet doxycycline (Vibramycin) 100 mg capsule Other Relevant Orders Thyroid Stimulating Hormone Follow Up In Primary Care - Established documented in this encounter [facility] Work Phone: 02-12-2024 History of Presen t illness Narrative HISTORY OF PRESENT ILLNESS: Ms. Raya Dominguez is a 58-year-old female with a past medical history of retention who has been diagnosed with essential thrombocytosis. Patient has been seen by Dr. Tomas. For complete details please see Dr. Tomas's note dated 10/16/2023. Patient currently is on Hydrea. She reports tolerating this well. She is without complaint. She was initially diagnosed with essential thrombocytosis in 10/2009. Patient initially was reluctant to start on Hydrea. He was just managed with observation until April 14, 2020 when she agreed to start on Hydrea. Patient's doses have gradually increased. Patient currently is taking Hydrea 500 mg twice BID Monday through Monday and 1 tablet (500 mg )on Monday and Monday. She now returns CURRENT STATUS: Patient appears to be tolerating the Hydrea well. Patient is currently taking aspirin a day. She is currently without complaint. She reports that she was on steroids due to infection and bronchitis. She reports that she finished them Monday. She is still working at [employer]. ROS: CONSTITUTIONAL: No fever, chills, night sweats or excessive fatigue. EYES: No significant visual difficulties. No diplopia. No blurred vision HEENT: No sore mouth or throat. No sinus drainage. ENDOCRINE: No hot flashes or night sweats. Denies excessive thirst. HEMATOLOGY/LYMPHOLOGY: No easy bruising or bleeding, The patient denies any tender or palpable lymph nodes. RESPIRATORY: No dyspnea on exertion, chest pain or hemoptysis. CARDIOVASCULAR: Denies palpitations orthopnea. GASTROINTESTINAL: Denies GI bleeding or change in bowel habits. Denies heartburn or abdominal pain. MUSCULOSKELETAL: No joint pain, swelling or redness. No decreased range of motion. SKIN: No chronic rashes, inflammation, ulcerations or skin changes. NEURO: No headaches. Denies extremity weakness or numbness. Normal gait. All other reviewed and negative other than HPI. ECOG PERFORMANCE STATUS: 0- Fully active, able to carry on all pre-disease performance w/o restriction. Social History Tobacco Use Smoking status: Never Smokeless tobacco: Never Substance Use Topics Alcohol use: No Drug use: No FAMILY HISTORY Problem Relation Age of Onset Thyroid Mother Cancer Father lung Hypertension Father Hypertension Sister Stroke Paternal Grandmother PAST MEDICAL HISTORY Diagnosis Date Hypertension Other acute pain 01/02/2012 Thrombocythemia (HCC) PHYSICAL EXAM: BP 126/83 Pulse 99 Temp (Src) 97.7 (Temporal) Resp 16 Wt 222 lb 0.1 oz (100.7kg) SpO2 96% CONSTITUTIONAL: Awake, alert, oriented. HEAD (Incl. face): Normocephalic; Atraumatic. EYES: Pupils are reactive. No scleral icterus. HEENT: No oral exudates. NECK: No thyromegaly. No JVD. HEMATOLOGY/LYMPHATIC: No petechiae or purpura. No tender or palpable lymph nodes in the cervical, supraclavicular, axillary or inguinal areas. RESPIRATORY: Lungs are clear to auscultation. CARDIOVASCULAR: Regular rate and rhythm. 2 + radial pulse. ABDOMEN: Non-tender, soft, positive bowel sounds. BACK/SPINE: No kyphosis or scoliosis. Non tender to palpation. MUSCULOSKELETAL: No tenderness or swelling, normal range of motion without obvious weakness. EXTREMITIES: No cyanosis, clubbing INTEGUMENTARY: No rashes or masses. NEURO: No sensory or motor deficits, normal cerebellar function, normal gait, cranial nerves intact. PSYCHIATRIC: Pleasant affect. No signs of agitation. LABS: Latest Reference Range & Units 11/13/23 14:41 11/22/23 08:27 12/25/23 08:22 02/12/24 15:16 Sodium 136 - 144 mmol/L 138 141 139 Potassium 3.7 - 5.1 mmol/L 3.8 4.7 3.8 Chloride 97 - 105 mmol/L 100 104 99 CO2 22 - 30 mmol/L 29 28 29 BUN 7 - 21 mg/dL 12 10 12 Creatinine 0.58 - 0.96 mg/dL 0.62 0.65 0.72 Glucose 74 - 99 mg/dL 115 (H) 107 (H) 140 (H) Protein, Total 6.3 - 8.0 g/dL 7.0 7.1 7.0 Calcium 8.5 - 10.2 mg/dL 10.1 9.6 9.8 Albumin 3.9 - 4.9 g/dL 4.5 4.3 4.7 Bilirubin, Total 0.2 - 1.3 mg/dL 0.7 0.4 0.3 Alkaline Phosphatase 34 - 123 U/L 109 119 87 ALT 7 - 38 U/L 78 (H) 47 (H) 28 AST 13 - 35 U/L 78 (H) 30 28 Anion Gap 9 - 18 mmol/L 9 9 11 eGFR >=60 mL/min/1.73m 103 102 96 WBC 3.70 - 11.00 k/uL 6.33 7.61 9.46 RBC 3.90 - 5.20 m/uL 3.78 (L) 3.86 (L) 4.25 Hemoglobin 11.5 - 15.5 g/dL 14.2 14.7 15.9 (H) Hematocrit 36.0 - 46.0 % 41.0 41.6 45.8 Platelet Count 150 - 400 k/uL 389 364 556 (H) MCV 80.0 - 100.0 fL 108.5 (H) 107.8 (H) 107.8 (H) MCH 26.0 - 34.0 pg 37.6 (H) 38.1 (H) 37.4 (H) MCHC 30.5 - 36.0 g/dL 34.6 35.3 34.7 MPV 9.0 - 12.7 fL 8.9 (L) 8.7 (L) 8.6 (L) RDW-CV 11.5 - 15.0 % 13.2 12.9 12.8 DTYPE Auto Auto Auto Neut% % 55.9 63.6 55.7 Abs Neut (ANC) 1.45 - 7.50 k/uL 3.54 4.84 5.27 Lymph% % 36.2 27.3 36.4 Abs Lymph 1.00 - 4.00 k/uL 2.29 2.08 3.44 [place]% % 3.8 5.8 4.7 Abs [place] <0.87 k/uL 0.24 0.44 0.44 Eosin% % 3.0 2.5 2.3 Abs Eosin <0.46 k/uL 0.19 0.19 0.22 Baso% % 0.8 0.5 0.6 Abs Baso <0.11 k/uL 0.05 0.04 0.06 Immature Gran % % 0.3 0.3 0.3 IMMATURE GRANS (ABS) <0.10 k/uL <0.03 <0.03 0.03 NRBC /100 WBC 0.0 0.0 0.0 Absolute nRBC <0.01 k/uL <0.01 <0.01 <0.01 (H): Data is abnormally high (L): Data is abnormally low ASSESSMENT / PLAN: Esssential thrombocytosis, JAK2 mutated. She will now take 1000 mg Monday through Monday 500 mg on Monday. Her platelet count is higher but maybe reactive to steroids and infection. I will repeat in 3 weeks and if still high adjust hydrea. She return to see me in 3 months. Continue on aspirin. Some Elements Copied from my note previous note,November 13, 2023. I have updated where appropriate, and all reflect current medical decision making from today, February 12, 2024 Jay Rodgers MD This note was partially generated using [employer] voice recognition system, and there may be some incorrect words, spellings, and punctuation that were not noted in checking the note before saving. documented in this encounter [facility] 11-14-2023 Miscellaneous Notes ----- Message from Jay Rodgers sent at 11/13/2023 10:10 PM EST ----- Call patient any new meds? Lipitor? If not, repeat in a week. documented in this encounter [facility] 08-31-2023 History of Presen t illness Narrative Subjective Patient ID: Raya Dominguez is a 58 y.o. female who presents for Follow-up (6 mo). HPI since the last office visit there have been no interval operations, hospitalizations, important illnesses or injuries. HTN-Takes and tolerates meds without side effects. No alcohol. no tobacco. no exercise. low salt. Reviewed recommendation for 150 minutes of exercise per week including 2 days of weight training if over age 50 Thrombocythemia managed with aspirin and Hydrea Had some ill feeling in the suprapubic left lower quadrant over the last several days. We will treat his UTI if not improved would consider CT abdomen pelvis Review of Systems General-no fatigue weight to within 10 pounds ENT no problems with vision swallowing Cardiac no chest pains palpitations change in exercise tolerance or capacity Pulmonary no cough shortness of breath GI no heartburn or abdominal pain Musculoskeletal no joint pains Objective BP 112/62 Pulse 92 Ht 1.626 m (5' 4) Wt 101 kg (222 lb 12.8 oz) SpO2 97% BMI 38.24 kg/m Physical Exam General: Alert, No acute distress. Appears stated age Eye: Pupils are equal, round and reactive to light, Extraocular movements are intact, Normal conjunctiva. Neck: Supple, Non-tender, No carotid bruit, No jugular venous distention, No lymphadenopathy, No thyromegaly. Respiratory: Lungs are clear to auscultation, Respirations are non-labored, Breath sounds are equal. Cardiovascular: Normal rate, Regular rhythm, No murmur. Gastrointestinal: Soft, Non-tender, No organomegaly. No solid or pulsatile mass Integumentary: Warm, Dry. No concerning lesions on exposed areas Neurologic: Alert, Oriented. Gross and fine motor intact, CN 2-12 intact Psychiatric: Cooperative, Appropriate mood & affect. Assessment/Plan Problem List Items Addressed This Visit ICD-10-CM Hypertension - Primary I10 Relevant Medications losartan-hydrochlorothiazide (Hyzaar) 50-12.5 mg tablet Other Relevant Orders Follow Up In Primary Care Thrombocythemia D75.839 Relevant Orders Follow Up In Primary Care Other Visit Diagnoses Codes Urticaria L50.9 Relevant Medications predniSONE (Deltasone) 10 mg tablet Acute cystitis without hematuria N30.00 Relevant Medications nitrofurantoin, macrocrystal-monohydrate, (Macrobid) 100 mg capsule Other Relevant Orders POCT UA Automated manually resulted (Completed) Encounter for screening mammogram for malignant neoplasm of breast Z12.31 Relevant Orders BI mammo bilateral screening tomosynthesis documented in this encounter [facility] Work Phone: 07-24-2023 History of Presen t illness Narrative HISTORY OF PRESENT ILLNESS: Ms. Raya Dominguez is a 57-year-old female with a past medical history of retention who has been diagnosed with essential thrombocytosis. Patient has been seen by Dr. Tomas. For complete details please see Dr. Tomas's note dated 10/16/2023. Patient currently is on Hydrea. She reports tolerating this well. She is without complaint. She was initially diagnosed with essential thrombocytosis in 10/2009. Patient initially was reluctant to start on Hydrea. He was just managed with observation until April 14, 2020 when she agreed to start on Hydrea. Patient's doses have gradually increased. Patient currently is taking Hydrea 500 mg twice BID Monday through Monday and 1 tablet (500 mg )on Monday and Monday. She now returns CURRENT STATUS: Patient appears to be tolerating the Hydrea well. Patient is currently taking aspirin a day. She is currently without complaint. ROS: CONSTITUTIONAL: No fever, chills, night sweats or excessive fatigue. EYES: No significant visual difficulties. No diplopia. No blurred vision HEENT: No sore mouth or throat. No sinus drainage. ENDOCRINE: No hot flashes or night sweats. Denies excessive thirst. HEMATOLOGY/LYMPHOLOGY: No easy bruising or bleeding, The patient denies any tender or palpable lymph nodes. RESPIRATORY: No dyspnea on exertion, chest pain or hemoptysis. CARDIOVASCULAR: Denies palpitations orthopnea. GASTROINTESTINAL: Denies GI bleeding or change in bowel habits. Denies heartburn or abdominal pain. MUSCULOSKELETAL: No joint pain, swelling or redness. No decreased range of motion. SKIN: No chronic rashes, inflammation, ulcerations or skin changes. NEURO: No headaches. Denies extremity weakness or numbness. Normal gait. All other reviewed and negative other than HPI. ECOG PERFORMANCE STATUS: 0- Fully active, able to carry on all pre-disease performance w/o restriction. Social History Tobacco Use Smoking status: Never Smokeless tobacco: Never Substance Use Topics Alcohol use: No Drug use: No FAMILY HISTORY Problem Relation Age of Onset Thyroid Mother Cancer Father lung Hypertension Father Hypertension Sister Stroke Paternal Grandmother PAST MEDICAL HISTORY Diagnosis Date Hypertension Other acute pain 01/02/2012 Thrombocythemia (HCC) PHYSICAL EXAM: BP 163/94 Pulse 67 Temp (Src) 97.8 (Temporal) Resp 16 Ht 5' 3.976 (1.63m) Wt 225 lb 3.2 oz (102.2kg) SpO2 98% BMI 38.68 kg/(m^2). CONSTITUTIONAL: Awake, alert, oriented. HEAD (Incl. face): Normocephalic; Atraumatic. EYES: Pupils are reactive. No scleral icterus. HEENT: No oral exudates. NECK: No thyromegaly. No JVD. HEMATOLOGY/LYMPHATIC: No petechiae or purpura. No tender or palpable lymph nodes in the cervical, supraclavicular, axillary or inguinal areas. RESPIRATORY: Lungs are clear to auscultation. CARDIOVASCULAR: Regular rate and rhythm. 2 + radial pulse. ABDOMEN: Non-tender, soft, positive bowel sounds. BACK/SPINE: No kyphosis or scoliosis. Non tender to palpation. MUSCULOSKELETAL: No tenderness or swelling, normal range of motion without obvious weakness. EXTREMITIES: No cyanosis, clubbing INTEGUMENTARY: No rashes or masses. NEURO: No sensory or motor deficits, normal cerebellar function, normal gait, cranial nerves intact. PSYCHIATRIC: Pleasant affect. No signs of agitation. LABS: Latest Reference Range & Units 07/24/23 09:01 WBC 3.70 - 11.00 k/uL 5.62 RBC 3.90 - 5.20 m/uL 3.94 Hemoglobin 11.5 - 15.5 g/dL 14.8 Hematocrit 36.0 - 46.0 % 42.5 Platelet Count 150 - 400 k/uL 415 (H) MCV 80.0 - 100.0 fL 107.9 (H) MCH 26.0 - 34.0 pg 37.6 (H) MCHC 30.5 - 36.0 g/dL 34.8 MPV 9.0 - 12.7 fL 8.7 (L) RDW-CV 11.5 - 15.0 % 12.8 DTYPE Auto Neut% % 57.0 Abs Neut (ANC) 1.45 - 7.50 k/uL 3.21 Lymph% % 33.5 Abs Lymph 1.00 - 4.00 k/uL 1.88 [place]% % 5.7 Abs [place] <0.87 k/uL 0.32 Eosin% % 2.7 Abs Eosin <0.46 k/uL 0.15 Baso% % 0.7 Abs Baso <0.11 k/uL 0.04 Immature Gran % % 0.4 IMMATURE GRANS (ABS) <0.10 k/uL <0.03 NRBC /100 WBC 0.0 Absolute nRBC <0.01 k/uL <0.01 (H): Data is abnormally high (L): Data is abnormally low ASSESSMENT / PLAN: Esssential thrombocytosis, JAK2 mutated. Patient is currently on 500 mg twice daily Monday through Monday and 500mg daily on Monday and Monday. Patient's counts are mildly elevated. I discussed with her recent dose slightly. She will now take 1000 mg Monday through Monday 5 mg on Monday. Check counts once a month. She return to see me in 3 months. Continue on aspirin. Jay Rodgers MD This note was partially generated using [employer] voice recognition system, and there may be some incorrect words, spellings, and punctuation that were not noted in checking the note before saving. 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 She has diagnosis of essential thrombocythemia. She has low risk disease. She is on aspirin. She has declined Hydrea. Patient went for 2nd opinion at [facility] at the main campus. Dr. Read at [facility] left it up to the patient whether to take Hydrea or not and patient decided against Hydrea. 04/14/2020: She presents today for a 3 month follow-up visit and repeat CBC. She is compliant in taking her daily baby aspirin. She denies any complaints of headaches, lightheadedness, visual changes chest pain. She does report ongoing fatigue but this is unchanged. She has been diagnosed with FARRIS after liver Bx at in [place]. She has been advised to low fat low carb diet. She gets regular eye examinations. She denied any other complaints like bleeding or leg pain or swelling or CP or TIA or change in vision. 05/26/2020: She is in here for her 6 weeks follow-up. She started the hydroxyurea 500 mg 3 times a week on 04/14/2020. She has been feeling fine with it without any sore in the mouth or nausea or vomiting or diarrhea or abdominal pain or leg cramps or leg swelling. She denies any diarrhea. She denies any fever or chills or infections ever since. She has been getting her CBC weekly ever since and she is here for the results and further plan of care. 07/27/2020: She is here for 2 months follow up for her ET. She has been taking hydrea at bedtime 3 days a week till 07/14/2020 when we increased it to 500 mg 4 days a week. She said, since then she feels a little more fatigue with sensitivity of the fingertip and dry skin of the fingertip. No nausea or vomiting or diarrhea or infection or bleeding or rash or leg swelling or oral sores. 09/07/2020: Patient is here for 2 months follow up for her ET. Still on hydrea 5 days a week and ASA daily. No fevers or infections or bleeding from any source. No other complaints other than 3 fingernails are coming off the nail bed form the top. The nails are long. Some Pepito horse in her calves. 11/04/2020: Patient is here for 2 months follow up and further planning of her care for her E.T. She has been taking her hydrea 500 mg daily except Monday. She decreased her ASA to 81 mg as was advised since she was placed on prednisone for poison Colleen. She denied any nausea or vomiting or diarrhea or melena or rectal bleeding or abdominal pain or oral sore or any other complaints. 02/04/21: Patient is here for 2 months follow up and further planning of her care for her E.T. She has been taking her hydrea 500 mg daily except Monday. She takes 2 ASA 81 mg daily/ She denied any nausea or vomiting or diarrhea or melena or rectal bleeding or abdominal pain or oral sore or any other complaints. She denied any infections or fevers or oral sores or leg edema. 04/08/21: Patient is here for 2 months follow up and further planning of her care for her E.T. She has been taking her hydrea 500 mg daily except bid. She takes 2 ASA 81 mg daily. She noticed slight joint pain since then. She denied any nausea or vomiting or diarrhea or melena or rectal bleeding or abdominal pain or oral sore or any other complaints. She denied any infections or fevers or oral sores or leg edema. 06/10/21: Patient is here for 2 months follow up for her ET. She is using hydrea once daily except --F 2 daily. Also uses ASA daily. Still with joint pain. No new complaints. Uses Tylenol and advil as needed or pain. 10/14/21: Patient is here for 2 months follow up for her ET. She is using hydrea once daily except M-W-F 2 daily. Also uses ASA daily. Still with joint pain. No new complaints. Uses Tylenol and advil as needed or pain. She denied current infections or fevers or bleeding or TIA, CVA or CP or SOB. 02/03/22: Patient is here for 4 months follow up for her ET. She is using hydrea once daily except M-W--F 2 daily. Also uses ASA daily. Still with joint pain. No new complaints. Uses Tylenol and advil as needed or pain. She denied current infections or fevers or bleeding or TIA, CVA or CP or SOB. Her platelet count is still [facility] [phone]. 04/07/22: Patient is here for 2 months follow up for her ET. She is using hydrea once daily except M through F 2 daily. She denied any new side effects. For few days only now she feels slight dizziness at times but she might not be drinking enough water with the hot weather now. Also uses ASA daily. No new complaints. She denied current infections or fevers or bleeding or TIA, CVA or CP or SOB. She denied any fevers or sores in the mouth. 07/14/22: Patient is here for 3 months follow up for her ET. She is using hydrea twice daily except Sat and Sun once daily. She also takes her 2 baby ASA daily. She denied any new side effects. She still with intermittent left leg edema that is mild since she came back for but her LLE doppler was negative for DVT on 06/13/22. Also uses ASA daily. No new complaints. She denied current infections or fevers or bleeding or TIA, CVA or CP or SOB. She denied any fevers or sores in the mouth. 10/13/22: Patient is here for 3 months follow up for her ET. She is using hydrea once daily on weekend and bid -F. Also uses 162 mg ASA daily. 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 She uses nasal steroids. Uses Tylenol and advil as needed or pain. She denied current infections or fevers or bleeding or TIA, CVA or CP or SOB. 01/05/23: Patient is here for 3 months follow up for her ET. She is using hydrea once daily on weekend and bid M-. Also uses 162 mg ASA daily. She denied current infections or fevers or bleeding or TIA, CVA or CP or SOB. No new complaints or side effects to Hydrea. 04/06/23: She is here for 12 weeks follow up for ET and hydrea dose adjustment if needed based on the lab results last 12 weeks. No new side effects to hydrea despite increasing it to bid since last visit. All systems were reviewed and are negative. 06/30/2023: She presents today for repeat labs and a 3-month follow-up visit. For the past 3 months she has been taking Hydrea 1000 mg daily except for every other weekend she takes 500 mg daily. She reports that she wakes up every morning with joint pain in her hips and elbows and rates this about a 5 out of 10. She reports that when she gets up and moves around and without taking any pain relievers it goes down to about a 1/10. She reports it started when she started taking Hydrea daily. She had a 1 month trial of taking ibuprofen a couple times a day and this did not help. She denies any fevers or skin ulcerations. She denies any abnormal bleeding or bruising. REVIEW OF SYSTEMS GENERAL: No weight loss, malaise or fevers NECK: Negative for lumps, goiter, pain and significant neck swelling RESPIRATORY: Negative for cough, hemoptysis, wheezing, COPD, dyspnea or shortness of breath CARDIOVASCULAR: Negative for chest pain, leg swelling, hypertension, CHF or palpitations GI: No nausea, vomiting, or diarrhea : No history of dysuria, frequency or incontinence HEMATOLOGY/LYMPHOLOGY: Negative for prolonged bleeding, bruising easily or swollen nodes NEURO: No history of headaches, syncope, paralysis, seizures or tremors; PAST MEDICAL HISTORY Diagnosis Date Hypertension Other acute pain 01/02/2012 Thrombocythemia (HCC) PAST SURGICAL HISTORY Procedure Laterality Date DELIVERY ONLY , low transverse LAPAROSCOPIC CHOLEYCYSTECTOMY 1999 peritonitis REMOVAL OF TONSILS,<12 Y/O Tonsillectomy Allergies: Ultram [Tramadol] Vomiting Social History Tobacco Use Smoking status: Never Smokeless tobacco: Never Substance Use Topics Alcohol use: No Drug use: No Family History Problem Relation Age of Onset Thyroid Mother Cancer Father lung Hypertension Father Hypertension Sister Stroke Paternal Grandmother PHYSICAL EXAM: BP 126/66 Pulse 77 Temp 36.7 C (98 F) (Oral) Resp 16 Ht 162.5 cm (5' 3.98) Wt 102.6 kg (226 lb 3.2 oz) SpO2 97% BMI 38.86 kg/m HEENT: NCAT, PERRLA Neck No LAP or TM, supple neck CHEST: Clear to auscultation. No rhonchi no wheezes. CARDIAC: First and second heart sounds normally audible. No murmurs. ABDOMEN: Soft nontender. Spleen palpable in the left upper quadrant. No hepatomegaly EXT: no edema or erythema of the legs. LABS: Component Latest Ref Rng & Units 04/06/2023 06/02/2023 06/30/2023 WBC 3.70 - 11.00 k/uL 6.18 5.29 5.41 RBC 3.90 - 5.20 m/uL 4.23 3.95 4.24 Hemoglobin 11.5 - 15.5 g/dL 15.5 14.6 15.6 (H) Hematocrit 36.0 - 46.0 % 44.1 42.1 44.6 MCV 80.0 - 100.0 fL 104.3 (H) 106.6 (H) 105.2 (H) MCH 26.0 - 34.0 pg 36.6 (H) 37.0 (H) 36.8 (H) MCHC 30.5 - 36.0 g/dL 35.1 34.7 35.0 RDW-CV 11.5 - 15.0 % 12.2 12.7 12.3 Platelet Count 150 - 400 k/uL 470 (H) 451 (H) 481 (H) MPV 9.0 - 12.7 fL 8.9 (L) 8.7 (L) 8.8 (L) Neut% % 64.2 59.5 61.3 Abs Neut (ANC) 1.45 - 7.50 k/uL 3.97 3.15 3.32 Lymph% % 27.2 30.2 29.4 Abs Lymph 1.00 - 4.00 k/uL 1.68 1.60 1.59 [place]% % 4.9 5.7 5.0 Abs [place] <0.87 k/uL 0.30 0.30 0.27 Eosin% % 2.4 3.6 2.4 Abs Eosin <0.46 k/uL 0.15 0.19 0.13 Baso% % 1.0 0.8 1.3 Abs Baso <0.11 k/uL 0.06 0.04 0.07 Immature Gran % % 0.3 0.2 0.6 IMMATURE GRANS (ABS) <0.10 k/uL <0.03 <0.03 0.03 NRBC /100 WBC 0.0 0.0 0.0 Absolute nRBC <0.01 k/uL <0.01 <0.01 <0.01 DTYPE Auto Auto Auto ASSESSMENT / PLAN: 1. Essential thrombocytosis. JAK2 Mutated. - Also on baby ASA. She was declined treatment with hydroxyurea till 04/14/2020 when she agreed to start a low-dose of 500 mg 3 times a week. She started that and she is been tolerating it very well without any side effects. Her Platelet count are still elevated slowly improving. Plan: Platelet count has increased again despite she has been on same dose for a while. No current infections or new medications added. No changes in her food. She attributes her joint pain to the higher doses of Hydrea and is not too agreeable to increasing her Hydrea dose despite her platelet count going higher. Macrocytosis remained stable. She does admit that her pain is usually after sitting or sleeping for a while and by getting up and moving around she works the pain out. I am giving her a trial dose of Flexeril 5 mg to be used as needed, only once daily, for joint stiffness. I encouraged her to try to get some daily exercising and to see if this would also improve her joint stiffness rather than take Flexeril. She is agreeable. She will return in 1 month for CBC and a transfer of care visit with Dr. Rodgers per her request. She will continue taking Hydrea 500 mg twice daily every day and not take off every other weekend like she had been in the past. We discussed that if her platelet count goes higher it will indicate a need to increase her Hydrea dose. Continue ASA 81 mg 2 pills daily with food. All documentation from previous visit of 04/06/2023 was copied and pasted, documentation has been reviewed and edited as necessary for today's visit. Tamia Encarnacion CNP Cc: Dr. Wilson (NOTE: A voice recognition system was used to dictate this note and as such there may be uncorrected errors in grammar, punctuation, pronoun use, etc. Please disregard these and call us with any questions.) documented in this encounter [facility] 05-05-2023 Miscellaneous Notes I left vm to reschedule. documented in this encounter [facility] 04-06-2023 Instructions Dylan Tomas MD - 04/06/2023 9:26 AM EDT Change Hydrea to 500 mg twice daily except Mondays and Fridays 3 times daily.. Continue ASA 81 mg 2 pills daily with food. Continue CBC every 2 weeks. CMP in 12 weeks. RTC in 12 weeks. 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 She has diagnosis of essential thrombocythemia. She has low risk disease. She is on aspirin. She has declined Hydrea. Patient went for 2nd opinion at [facility] at the main [place]. Dr. Read at [facility] left it up to the patient whether to take Hydrea or not and patient decided against Hydrea. 04/14/2020: She presents today for a 3 month follow-up visit and repeat CBC. She is compliant in taking her daily baby aspirin. She denies any complaints of headaches, lightheadedness, visual changes chest pain. She does report ongoing fatigue but this is unchanged. She has been diagnosed with FARRIS after liver Bx at in [place]. She has been advised to low fat low carb diet. She gets regular eye examinations. She denied any other complaints like bleeding or leg pain or swelling or CP or TIA or change in vision. 05/26/2020: She is in here for her 6 weeks follow-up. She started the hydroxyurea 500 mg 3 times a week on 04/14/2020. She has been feeling fine with it without any sore in the mouth or nausea or vomiting or diarrhea or abdominal pain or leg cramps or leg swelling. She denies any diarrhea. She denies any fever or chills or infections ever since. She has been getting her CBC weekly ever since and she is here for the results and further plan of care. 07/27/2020: She is here for 2 months follow up for her ET. She has been taking hydrea at bedtime 3 days a week till 07/14/2020 when we increased it to 500 mg 4 days a week. She said, since then she feels a little more fatigue with sensitivity of the fingertip and dry skin of the fingertip. No nausea or vomiting or diarrhea or infection or bleeding or rash or leg swelling or oral sores. 09/07/2020: Patient is here for 2 months follow up for her ET. Still on hydrea 5 days a week and ASA daily. No fevers or infections or bleeding from any source. No other complaints other than 3 fingernails are coming off the nail bed form the top. The nails are long. Some Pepito horse in her calves. 11/04/2020: Patient is here for 2 months follow up and further planning of her care for her E.T. She has been taking her hydrea 500 mg daily except Monday. She decreased her ASA to 81 mg as was advised since she was placed on prednisone for poison Colleen. She denied any nausea or vomiting or diarrhea or melena or rectal bleeding or abdominal pain or oral sore or any other complaints. 02/04/21: Patient is here for 2 months follow up and further planning of her care for her E.T. She has been taking her hydrea 500 mg daily except Monday. She takes 2 ASA 81 mg daily/ She denied any nausea or vomiting or diarrhea or melena or rectal bleeding or abdominal pain or oral sore or any other complaints. She denied any infections or fevers or oral sores or leg edema. 04/08/21: Patient is here for 2 months follow up and further planning of her care for her E.T. She has been taking her hydrea 500 mg daily except M, Th bid. She takes 2 ASA 81 mg daily. She noticed slight joint pain since then. She denied any nausea or vomiting or diarrhea or melena or rectal bleeding or abdominal pain or oral sore or any other complaints. She denied any infections or fevers or oral sores or leg edema. 06/10/21: Patient is here for 2 months follow up for her ET. She is using hydrea once daily except M-W-F 2 daily. Also uses ASA daily. Still with joint pain. No new complaints. Uses Tylenol and advil as needed or pain. 10/14/21: Patient is here for 2 months follow up for her ET. She is using hydrea once daily except M-W-F 2 daily. Also uses ASA daily. Still with joint pain. No new complaints. Uses Tylenol and advil as needed or pain. She denied current infections or fevers or bleeding or TIA, CVA or CP or SOB. 02/03/22: Patient is here for 4 months follow up for her ET. She is using hydrea once daily except M-W-Th-F 2 daily. Also uses ASA daily. Still with joint pain. No new complaints. Uses Tylenol and advil as needed or pain. She denied current infections or fevers or bleeding or TIA, CVA or CP or SOB. Her platelet count is still [facility] [phone]. 04/07/22: Patient is here for 2 months follow up for her ET. She is using hydrea once daily except M through F 2 daily. She denied any new side effects. For few days only now she feels slight dizziness at times but she might not be drinking enough water with the hot weather now. Also uses ASA daily. No new complaints. She denied current infections or fevers or bleeding or TIA, CVA or CP or SOB. She denied any fevers or sores in the mouth. 07/14/22: Patient is here for 3 months follow up for her ET. She is using hydrea twice daily except Sat and Sun once daily. She also takes her 2 baby ASA daily. She denied any new side effects. She still with intermittent left leg edema that is mild since she came back for but her LLE doppler was negative for DVT on 06/13/22. Also uses ASA daily. No new complaints. She denied current infections or fevers or bleeding or TIA, CVA or CP or SOB. She denied any fevers or sores in the mouth. 10/13/22: Patient is here for 3 months follow up for her ET. She is using hydrea once daily on weekend and bid M-F. Also uses 162 mg ASA daily. 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 She uses nasal steroids. Uses Tylenol and advil as needed or pain. She denied current infections or fevers or bleeding or TIA, CVA or CP or SOB. 01/05/23: Patient is here for 3 months follow up for her ET. She is using hydrea once daily on weekend and bid M-F. Also uses 162 mg ASA daily. She denied current infections or fevers or bleeding or TIA, CVA or CP or SOB. No new complaints or side effects to Hydrea. 04/06/23: She is here for 12 weeks follow up for ET and hydrea dose adjustment if needed based on the lab results last 12 weeks. No new side effects to hydrea despite increasing it to bid since last visit. All systems were reviewed and are negative. REVIEW OF SYSTEMS GENERAL: No weight loss, malaise or fevers NECK: Negative for lumps, goiter, pain and significant neck swelling RESPIRATORY: Negative for cough, hemoptysis, wheezing, COPD, dyspnea or shortness of breath CARDIOVASCULAR: Negative for chest pain, leg swelling, hypertension, CHF or palpitations GI: No nausea, vomiting, or diarrhea : No history of dysuria, frequency or incontinence HEMATOLOGY/LYMPHOLOGY: Negative for prolonged bleeding, bruising easily or swollen nodes NEURO: No history of headaches, syncope, paralysis, seizures or tremors; PAST MEDICAL HISTORY Diagnosis Date Hypertension Other acute pain 01/02/2012 Thrombocythemia (HCC) PAST SURGICAL HISTORY Procedure Laterality Date DELIVERY ONLY , low transverse LAPAROSCOPIC CHOLEYCYSTECTOMY 1999 peritonitis REMOVAL OF TONSILS,<12 Y/O Tonsillectomy Allergies: Ultram [Tramadol] Vomiting Social History Tobacco Use Smoking status: Never Smokeless tobacco: Never Substance Use Topics Alcohol use: No Drug use: No Family History Problem Relation Age of Onset Thyroid Mother Cancer Father lung Hypertension Father Hypertension Sister Stroke Paternal Grandmother PHYSICAL EXAM: BP 116/76 Pulse 90 Temp 36.8 C (98.3 F) (Oral) Resp 16 Ht 162.5 cm (5' 3.98) Wt 102.7 kg (226 lb 6.4 oz) SpO2 95% BMI 38.89 kg/m HEENT: NCAT, PERRLA Neck No LAP or TM, supple neck CHEST: Clear to auscultation. No rhonchi no wheezes. CARDIAC: First and second heart sounds normally audible. No murmurs. ABDOMEN: Soft nontender. Spleen palpable in the left upper quadrant. No hepatomegaly EXT: no edema or erythema of the legs. Some fingernails are long and coming off the nail bed. LABS: Latest Reference Range & Units 03/09/23 08:02 04/06/23 08:29 WBC 3.70 - 11.00 k/uL 5.32 6.18 RBC 3.90 - 5.20 m/uL 4.07 4.23 Hemoglobin 11.5 - 15.5 g/dL 14.9 15.5 Hematocrit 36.0 - 46.0 % 43.4 44.1 Platelet Count 150 - 400 k/uL 473 (H) 470 (H) MCV 80.0 - 100.0 fL 106.6 (H) 104.3 (H) MCH 26.0 - 34.0 pg 36.6 (H) 36.6 (H) MCHC 30.5 - 36.0 g/dL 34.3 35.1 MPV 9.0 - 12.7 fL 8.8 (L) 8.9 (L) RDW-CV 11.5 - 15.0 % 12.5 12.2 DTYPE Auto Auto Neut% % 59.8 64.2 Abs Neut (ANC) 1.45 - 7.50 k/uL 3.18 3.97 Lymph% % 30.1 27.2 Abs Lymph 1.00 - 4.00 k/uL 1.60 1.68 [place]% % 5.8 4.9 Abs [place] <0.87 k/uL 0.31 0.30 Eosin% % 3.0 2.4 Abs Eosin <0.46 k/uL 0.16 0.15 Baso% % 1.1 1.0 Abs Baso <0.11 k/uL 0.06 0.06 Immature Gran % % 0.2 0.3 IMMATURE GRANS (ABS) <0.10 k/uL <0.03 <0.03 NRBC /100 WBC 0.0 0.0 Absolute nRBC <0.01 k/uL <0.01 <0.01 (H): Data is abnormally high (L): Data is abnormally low ASSESSMENT / PLAN: 1. Essential thrombocytosis. JAK2 Mutated. - Also on baby ASA. She was declined treatment with hydroxyurea till 04/14/2020 when she agreed to start a low-dose of 500 mg 3 times a week. She started that and she is been tolerating it very well without any side effects. Her Platelet count are still elevated slowly improving. Plan: Platelet count has increased again despite she has been on same dose for a while. No current infections or new medications added. No changes in her food. Recheck CBCD in one week. Patietn is to make sure we have a plan for hydrea after the results. Meanwhile, Continue Hydrea to 500 mg twice daily Mondays through Fridays and once daily on Saturdays and Sundays. Plt count is increasing again. Thus will increase Hydrea even more. Change Hydrea to 500 mg twice daily except Mondays and Fridays 3 times daily.. Continue ASA 81 mg 2 pills daily with food. Continue CBC every 2 weeks. CMP in 12 weeks. RTC in 12 weeks. Dylan Tomas MD Cc: Dr. Wilson documented in this encounter [facility] 01-05-2023 Instructions Dylan Tomas MD - 01/05/2023 10:40 AM EST Change Hydrea to 500 mg twice daily . Continue ASA 81 mg 2 pills daily with food. Continue CBC every 4 weeks. CMP in 12 weeks. RTC in 12 weeks. 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 She has diagnosis of essential thrombocythemia. She has low risk disease. She is on aspirin. She has declined Hydrea. Patient went for 2nd opinion at [facility] at the main campus. Dr. Read at [facility] left it up to the patient whether to take Hydrea or not and patient decided against Hydrea. 04/14/2020: She presents today for a 3 month follow-up visit and repeat CBC. She is compliant in taking her daily baby aspirin. She denies any complaints of headaches, lightheadedness, visual changes chest pain. She does report ongoing fatigue but this is unchanged. She has been diagnosed with FARRIS after liver Bx at in [place]. She has been advised to low fat low carb diet. She gets regular eye examinations. She denied any other complaints like bleeding or leg pain or swelling or CP or TIA or change in vision. 05/26/2020: She is in here for her 6 weeks follow-up. She started the hydroxyurea 500 mg 3 times a week on 04/14/2020. She has been feeling fine with it without any sore in the mouth or nausea or vomiting or diarrhea or abdominal pain or leg cramps or leg swelling. She denies any diarrhea. She denies any fever or chills or infections ever since. She has been getting her CBC weekly ever since and she is here for the results and further plan of care. 07/27/2020: She is here for 2 months follow up for her ET. She has been taking hydrea at bedtime 3 days a week till 07/14/2020 when we increased it to 500 mg 4 days a week. She said, since then she feels a little more fatigue with sensitivity of the fingertip and dry skin of the fingertip. No nausea or vomiting or diarrhea or infection or bleeding or rash or leg swelling or oral sores. 09/07/2020: Patient is here for 2 months follow up for her ET. Still on hydrea 5 days a week and ASA daily. No fevers or infections or bleeding from any source. No other complaints other than 3 fingernails are coming off the nail bed form the top. The nails are long. Some Pepito horse in her calves. 11/04/2020: Patient is here for 2 months follow up and further planning of her care for her E.T. She has been taking her hydrea 500 mg daily except Monday. She decreased her ASA to 81 mg as was advised since she was placed on prednisone for poison Colleen. She denied any nausea or vomiting or diarrhea or melena or rectal bleeding or abdominal pain or oral sore or any other complaints. 02/04/21: Patient is here for 2 months follow up and further planning of her care for her E.T. She has been taking her hydrea 500 mg daily except Monday. She takes 2 ASA 81 mg daily/ She denied any nausea or vomiting or diarrhea or melena or rectal bleeding or abdominal pain or oral sore or any other complaints. She denied any infections or fevers or oral sores or leg edema. 04/08/21: Patient is here for 2 months follow up and further planning of her care for her E.T. She has been taking her hydrea 500 mg daily except , bid. She takes 2 ASA 81 mg daily. She noticed slight joint pain since then. She denied any nausea or vomiting or diarrhea or melena or rectal bleeding or abdominal pain or oral sore or any other complaints. She denied any infections or fevers or oral sores or leg edema. 06/10/21: Patient is here for 2 months follow up for her ET. She is using hydrea once daily except M-W-F 2 daily. Also uses ASA daily. Still with joint pain. No new complaints. Uses Tylenol and advil as needed or pain. 10/14/21: Patient is here for 2 months follow up for her ET. She is using hydrea once daily except M-W-F 2 daily. Also uses ASA daily. Still with joint pain. No new complaints. Uses Tylenol and advil as needed or pain. She denied current infections or fevers or bleeding or TIA, CVA or CP or SOB. 02/03/22: Patient is here for 4 months follow up for her ET. She is using hydrea once daily except M-W-Th-F 2 daily. Also uses ASA daily. Still with joint pain. No new complaints. Uses Tylenol and advil as needed or pain. She denied current infections or fevers or bleeding or TIA, CVA or CP or SOB. Her platelet count is still hg [phone]. 04/07/22: Patient is here for 2 months follow up for her ET. She is using hydrea once daily except M through F 2 daily. She denied any new side effects. For few days only now she feels slight dizziness at times but she might not be drinking enough water with the hot weather now. Also uses ASA daily. No new complaints. She denied current infections or fevers or bleeding or TIA, CVA or CP or SOB. She denied any fevers or sores in the mouth. 07/14/22: Patient is here for 3 months follow up for her ET. She is using hydrea twice daily except Sat and Sun once daily. She also takes her 2 baby ASA daily. She denied any new side effects. She still with intermittent left leg edema that is mild since she came back for but her LLE doppler was negative for DVT on 06/13/22. Also uses ASA daily. No new complaints. She denied current infections or fevers or bleeding or TIA, CVA or CP or SOB. She denied any fevers or sores in the mouth. 10/13/22: Patient is here for 3 months follow up for her ET. She is using hydrea once daily on weekend and bid M-F. Also uses 162 mg ASA daily. 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 She uses nasal steroids. Uses Tylenol and advil as needed or pain. She denied current infections or fevers or bleeding or TIA, CVA or CP or SOB. 01/05/23: Patient is here for 3 months follow up for her ET. She is using hydrea once daily on weekend and bid M-F. Also uses 162 mg ASA daily. She denied current infections or fevers or bleeding or TIA, CVA or CP or SOB. No new complaints or side effects to Hydrea. All systems were reviewed and are negative. REVIEW OF SYSTEMS GENERAL: No weight loss, malaise or fevers NECK: Negative for lumps, goiter, pain and significant neck swelling RESPIRATORY: Negative for cough, hemoptysis, wheezing, COPD, dyspnea or shortness of breath CARDIOVASCULAR: Negative for chest pain, leg swelling, hypertension, CHF or palpitations GI: No nausea, vomiting, or diarrhea : No history of dysuria, frequency or incontinence HEMATOLOGY/LYMPHOLOGY: Negative for prolonged bleeding, bruising easily or swollen nodes NEURO: No history of headaches, syncope, paralysis, seizures or tremors; PAST MEDICAL HISTORY Diagnosis Date Hypertension Other acute pain 01/02/2012 Thrombocythemia (HCC) PAST SURGICAL HISTORY Procedure Laterality Date DELIVERY ONLY , low transverse LAPAROSCOPIC CHOLEYCYSTECTOMY 1999 peritonitis REMOVAL OF TONSILS,<12 Y/O Tonsillectomy Allergies: Ultram [Tramadol] Vomiting Social History Tobacco Use Smoking status: Never Smokeless tobacco: Never Substance Use Topics Alcohol use: No Drug use: No Family History Problem Relation Age of Onset Thyroid Mother Cancer Father lung Hypertension Father Hypertension Sister Stroke Paternal Grandmother PHYSICAL EXAM: BP 116/79 Pulse 89 Temp 36.8 C (98.2 F) Resp 16 Ht 162.5 cm (5' 3.98) Wt 101.7 kg (224 lb 3.2 oz) SpO2 98% BMI 38.51 kg/m HEENT: NCAT, PERRLA Neck No LAP or TM, supple neck CHEST: Clear to auscultation. No rhonchi no wheezes. CARDIAC: First and second heart sounds normally audible. No murmurs. ABDOMEN: Soft nontender. Spleen palpable in the left upper quadrant. No hepatomegaly EXT: no edema or erythema of the legs. Some fingernails are long and coming off the nail bed. LABS: Latest Reference Range & Units 12/08/22 08:06 01/05/23 10:17 Sodium 136 - 144 mmol/L 139 Potassium 3.7 - 5.1 mmol/L 4.5 Chloride 97 - 105 mmol/L 103 CO2 22 - 30 mmol/L 30 BUN 7 - 21 mg/dL 15 Creatinine 0.58 - 0.96 mg/dL 0.64 Glucose 74 - 99 mg/dL 102 (H) Protein, Total 6.3 - 8.0 g/dL 6.7 Calcium 8.5 - 10.2 mg/dL 9.7 Albumin 3.9 - 4.9 g/dL 4.5 Bilirubin, Total 0.2 - 1.3 mg/dL 0.6 Alkaline Phosphatase 34 - 123 U/L 89 ALT 7 - 38 U/L 33 AST 13 - 35 U/L 37 (H) Anion Gap 9 - 18 mmol/L 6 (L) eGFR >=60 mL/min/1.73m 103 WBC 3.70 - 11.00 k/uL 5.36 6.61 RBC 3.90 - 5.20 m/uL 3.97 4.13 Hemoglobin 11.5 - 15.5 g/dL 14.6 15.2 Hematocrit 36.0 - 46.0 % 42.6 44.2 Platelet Count 150 - 400 k/uL 445 (H) 471 (H) MCV 80.0 - 100.0 fL 107.3 (H) 107.0 (H) MCH 26.0 - 34.0 pg 36.8 (H) 36.8 (H) MCHC 30.5 - 36.0 g/dL 34.3 34.4 MPV 9.0 - 12.7 fL 8.7 (L) 8.8 (L) RDW-CV 11.5 - 15.0 % 11.9 12.3 DTYPE Auto Auto Neut% % 61.2 61.2 Abs Neut (ANC) 1.45 - 7.50 k/uL 3.28 4.05 Lymph% % 30.4 30.0 Abs Lymph 1.00 - 4.00 k/uL 1.63 1.98 [place]% % 4.1 5.4 Abs [place] <0.87 k/uL 0.22 0.36 Eosin% % 2.6 2.3 Abs Eosin <0.46 k/uL 0.14 0.15 Baso% % 1.3 0.9 Abs Baso <0.11 k/uL 0.07 0.06 Immature Gran % % 0.4 0.2 IMMATURE GRANS (ABS) <0.10 k/uL <0.03 <0.03 NRBC /100 WBC 0.0 0.0 Absolute nRBC <0.01 k/uL <0.01 <0.01 (H): Data is abnormally high (L): Data is abnormally low ASSESSMENT / PLAN: 1. Essential thrombocytosis. JAK2 Mutated. - Also on baby ASA. She was declined treatment with hydroxyurea till 04/14/2020 when she agreed to start a low-dose of 500 mg 3 times a week. She started that and she is been tolerating it very well without any side effects. Her Platelet count are still elevated slowly improving. Plan: Platelet count has increased again despite she has been on same dose for a while. No current infections or new medications added. No changes in her food. Recheck CBCD in one week. Patietn is to make sure we have a plan for hydrea after the results. Meanwhile, Continue Hydrea to 500 mg twice daily Mondays through Fridays and once daily on Saturdays and Sundays. Plt count is increasing again. Thus will increase Hydrea even more. Change Hydrea to 500 mg twice daily . Continue ASA 81 mg 2 pills daily with food. Continue CBC every 4 weeks. CMP in 12 weeks. RTC in 12 weeks. Dylan Tomas MD Cc: Dr. Wilson documented in this encounter [facility] 10-13-2022 Instructions Dylan Tomas MD - 10/13/2022 1:12 PM EST Continue Hydrea to 500 mg twice daily Mondays through Fridays and once daily on Saturdays and Sundays. Just this weekend take it twice daily on both days. Continue ASA 81 mg 2 pills daily with food. CBC in 2 weeks. Continue CBC every 4 weeks. 4 weeks from now as well. CMP in 12 weeks. RTC in 12 weeks. documented in this encounter [facility] 10-13-2022 History of Presen t illness Narrative Images from the original note were not included. 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 She has diagnosis of essential thrombocythemia. She has low risk disease. She is on aspirin. She has declined Hydrea. Patient went for 2nd opinion at [facility] at the main campus. Dr. Read at [facility] left it up to the patient whether to take Hydrea or not and patient decided against Hydrea. 04/14/2020: She presents today for a 3 month follow-up visit and repeat CBC. She is compliant in taking her daily baby aspirin. She denies any complaints of headaches, lightheadedness, visual changes chest pain. She does report ongoing fatigue but this is unchanged. She has been diagnosed with FARRIS after liver Bx at in [place]. She has been advised to low fat low carb diet. She gets regular eye examinations. She denied any other complaints like bleeding or leg pain or swelling or CP or TIA or change in vision. 05/26/2020: She is in here for her 6 weeks follow-up. She started the hydroxyurea 500 mg 3 times a week on 04/14/2020. She has been feeling fine with it without any sore in the mouth or nausea or vomiting or diarrhea or abdominal pain or leg cramps or leg swelling. She denies any diarrhea. She denies any fever or chills or infections ever since. She has been getting her CBC weekly ever since and she is here for the results and further plan of care. 07/27/2020: She is here for 2 months follow up for her ET. She has been taking hydrea at bedtime 3 days a week till 07/14/2020 when we increased it to 500 mg 4 days a week. She said, since then she feels a little more fatigue with sensitivity of the fingertip and dry skin of the fingertip. No nausea or vomiting or diarrhea or infection or bleeding or rash or leg swelling or oral sores. 09/07/2020: Patient is here for 2 months follow up for her ET. Still on hydrea 5 days a week and ASA daily. No fevers or infections or bleeding from any source. No other complaints other than 3 fingernails are coming off the nail bed form the top. The nails are long. Some Pepito horse in her calves. 11/04/2020: Patient is here for 2 months follow up and further planning of her care for her E.T. She has been taking her hydrea 500 mg daily except Monday. She decreased her ASA to 81 mg as was advised since she was placed on prednisone for poison Colleen. She denied any nausea or vomiting or diarrhea or melena or rectal bleeding or abdominal pain or oral sore or any other complaints. 02/04/21: Patient is here for 2 months follow up and further planning of her care for her E.T. She has been taking her hydrea 500 mg daily except Monday. She takes 2 ASA 81 mg daily/ She denied any nausea or vomiting or diarrhea or melena or rectal bleeding or abdominal pain or oral sore or any other complaints. She denied any infections or fevers or oral sores or leg edema. 04/08/21: Patient is here for 2 months follow up and further planning of her care for her E.T. She has been taking her hydrea 500 mg daily except bid. She takes 2 ASA 81 mg daily. She noticed slight joint pain since then. She denied any nausea or vomiting or diarrhea or melena or rectal bleeding or abdominal pain or oral sore or any other complaints. She denied any infections or fevers or oral sores or leg edema. 06/10/21: Patient is here for 2 months follow up for her ET. She is using hydrea once daily except M-W-F 2 daily. Also uses ASA daily. Still with joint pain. No new complaints. Uses Tylenol and advil as needed or pain. 10/14/21: Patient is here for 2 months follow up for her ET. She is using hydrea once daily except M-W-F 2 daily. Also uses ASA daily. Still with joint pain. No new complaints. Uses Tylenol and advil as needed or pain. She denied current infections or fevers or bleeding or TIA, CVA or CP or SOB. 02/03/22: Patient is here for 4 months follow up for her ET. She is using hydrea once daily except M-W-Th-F 2 daily. Also uses ASA daily. Still with joint pain. No new complaints. Uses Tylenol and advil as needed or pain. She denied current infections or fevers or bleeding or TIA, CVA or CP or SOB. Her platelet count is still hgh [phone]. 04/07/22: Patient is here for 2 months follow up for her ET. She is using hydrea once daily except M through F 2 daily. She denied any new side effects. For few days only now she feels slight dizziness at times but she might not be drinking enough water with the hot weather now. Also uses ASA daily. No new complaints. She denied current infections or fevers or bleeding or TIA, CVA or CP or SOB. She denied any fevers or sores in the mouth. 07/14/22: Patient is here for 3 months follow up for her ET. She is using hydrea twice daily except Sat and Sun once daily. She also takes her 2 baby ASA daily. She denied any new side effects. She still with intermittent left leg edema that is mild since she came back for but her LLE doppler was negative for DVT on 06/13/22. Also uses ASA daily. No new complaints. She denied current infections or fevers or bleeding or TIA, CVA or CP or SOB. She denied any fevers or sores in the mouth. 10/13/22: Patient is here for 3 months follow up for her ET. She is using hydrea once daily on weekend and bid M-F. Also uses 162 mg ASA daily. 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 She uses nasal steroids. Uses Tylenol and advil as needed or pain. She denied current infections or fevers or bleeding or TIA, CVA or CP or SOB. All systems were reviewed and are negative. REVIEW OF SYSTEMS GENERAL: No weight loss, malaise or fevers NECK: Negative for lumps, goiter, pain and significant neck swelling RESPIRATORY: Negative for cough, hemoptysis, wheezing, COPD, dyspnea or shortness of breath CARDIOVASCULAR: Negative for chest pain, leg swelling, hypertension, CHF or palpitations GI: No nausea, vomiting, or diarrhea : No history of dysuria, frequency or incontinence HEMATOLOGY/LYMPHOLOGY: Negative for prolonged bleeding, bruising easily or swollen nodes NEURO: No history of headaches, syncope, paralysis, seizures or tremors; PAST MEDICAL HISTORY Diagnosis Date Hypertension Other acute pain 01/02/2012 Thrombocythemia (HCC) PAST SURGICAL HISTORY Procedure Laterality Date DELIVERY ONLY , low transverse LAPAROSCOPIC CHOLEYCYSTECTOMY 1999 peritonitis REMOVAL OF TONSILS,<12 Y/O Tonsillectomy Allergies: Ultram [Tramadol] Vomiting Social History Tobacco Use Smoking status: Never Smokeless tobacco: Never Substance Use Topics Alcohol use: No Drug use: No Family History Problem Relation Age of Onset Thyroid Mother Cancer Father lung Hypertension Father Hypertension Sister Stroke Paternal Grandmother PHYSICAL EXAM: BP 135/81 Pulse 97 Temp 36.7 C (98 F) (Oral) Resp 16 Wt 103.1 kg (227 lb 6.4 oz) SpO2 95% BMI 39.06 kg/m HEENT: NCAT, PERRLA Neck No LAP or TM, supple neck CHEST: Clear to auscultation. No rhonchi no wheezes. CARDIAC: First and second heart sounds normally audible. No murmurs. ABDOMEN: Soft nontender. Spleen palpable in the left upper quadrant. No hepatomegaly EXT: no edema or erythema of the legs. Some fingernails are long and coming off the nail bed. LABS: ASSESSMENT / PLAN: 1. Essential thrombocytosis. JAK2 Mutated. - Also on baby ASA. She was declined treatment with hydroxyurea till 04/14/2020 when she agreed to start a low-dose of 500 mg 3 times a week. She started that and she is been tolerating it very well without any side effects. Her Platelet count are still elevated slowly improving. Plan: Platelet count has increased again despite she has been on same dose for a while. No current infections or new medications added. No changes in her food. Recheck CBCD in one week. Patietn is to make sure we have a plan for hydrea after the results. Meanwhile, Continue Hydrea to 500 mg twice daily Mondays through Fridays and once daily on Saturdays and Sundays. Continue Hydrea to 500 mg twice daily Mondays through Fridays and once daily on Saturdays and Sundays. Just this weekend take it twice daily on both days. Due to seasonal sinus allergy from leaf allergy, will temorarily increase it this weekend only. Continue ASA 81 mg 2 pills daily with food. CBC in 2 weeks. Continue CBC every 4 weeks. 4 weeks from now as well. CMP in 12 weeks. RTC in 12 weeks. Dylan Tomas MD Hematology and Oncology Cc: Dr. Wilson documented in this encounter [facility] 07-14-2022 Instructions Dylan Tomas MD - 07/14/2022 1:12 PM EDT Recheck CBCD in one week. Patietn is to make sure we have a plan for hydrea after the results. Meanwhile, Continue Hydrea to 500 mg twice daily Mondays through Fridays and once daily on Saturdays and Sundays. Continue ASA 81 mg 2 pills daily with food. CBC every 4 weeks. CMP in 12 weeks. RTC in 12 weeks. documented in this encounter [facility] 07-14-2022 History of Presen t illness Narrative Images from the original note were not included. 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 She has diagnosis of essential thrombocythemia. She has low risk disease. She is on aspirin. She has declined Hydrea. Patient went for 2nd opinion at [facility] at the main campus. Dr. Read at [facility] left it up to the patient whether to take Hydrea or not and patient decided against Hydrea. 04/14/2020: She presents today for a 3 month follow-up visit and repeat CBC. She is compliant in taking her daily baby aspirin. She denies any complaints of headaches, lightheadedness, visual changes chest pain. She does report ongoing fatigue but this is unchanged. She has been diagnosed with FARRIS after liver Bx at in [place]. She has been advised to low fat low carb diet. She gets regular eye examinations. She denied any other complaints like bleeding or leg pain or swelling or CP or TIA or change in vision. 05/26/2020: She is in here for her 6 weeks follow-up. She started the hydroxyurea 500 mg 3 times a week on 04/14/2020. She has been feeling fine with it without any sore in the mouth or nausea or vomiting or diarrhea or abdominal pain or leg cramps or leg swelling. She denies any diarrhea. She denies any fever or chills or infections ever since. She has been getting her CBC weekly ever since and she is here for the results and further plan of care. 07/27/2020: She is here for 2 months follow up for her ET. She has been taking hydrea at bedtime 3 days a week till 07/14/2020 when we increased it to 500 mg 4 days a week. She said, since then she feels a little more fatigue with sensitivity of the fingertip and dry skin of the fingertip. No nausea or vomiting or diarrhea or infection or bleeding or rash or leg swelling or oral sores. 09/07/2020: Patient is here for 2 months follow up for her ET. Still on hydrea 5 days a week and ASA daily. No fevers or infections or bleeding from any source. No other complaints other than 3 fingernails are coming off the nail bed form the top. The nails are long. Some [place] horse in her calves. 11/04/2020: Patient is here for 2 months follow up and further planning of her care for her E.T. She has been taking her hydrea 500 mg daily except Monday. She decreased her ASA to 81 mg as was advised since she was placed on prednisone for poison Colleen. She denied any nausea or vomiting or diarrhea or melena or rectal bleeding or abdominal pain or oral sore or any other complaints. 02/04/21: Patient is here for 2 months follow up and further planning of her care for her E.T. She has been taking her hydrea 500 mg daily except Monday. She takes 2 ASA 81 mg daily/ She denied any nausea or vomiting or diarrhea or melena or rectal bleeding or abdominal pain or oral sore or any other complaints. She denied any infections or fevers or oral sores or leg edema. 04/08/21: Patient is here for 2 months follow up and further planning of her care for her E.T. She has been taking her hydrea 500 mg daily except , bid. She takes 2 ASA 81 mg daily. She noticed slight joint pain since then. She denied any nausea or vomiting or diarrhea or melena or rectal bleeding or abdominal pain or oral sore or any other complaints. She denied any infections or fevers or oral sores or leg edema. 06/10/21: Patient is here for 2 months follow up for her ET. She is using hydrea once daily except M-W-F 2 daily. Also uses ASA daily. Still with joint pain. No new complaints. Uses Tylenol and advil as needed or pain. 10/14/21: Patient is here for 2 months follow up for her ET. She is using hydrea once daily except M-W-F 2 daily. Also uses ASA daily. Still with joint pain. No new complaints. Uses Tylenol and advil as needed or pain. She denied current infections or fevers or bleeding or TIA, CVA or CP or SOB. 02/03/22: Patient is here for 4 months follow up for her ET. She is using hydrea once daily except M-W-Th-F 2 daily. Also uses ASA daily. Still with joint pain. No new complaints. Uses Tylenol and advil as needed or pain. She denied current infections or fevers or bleeding or TIA, CVA or CP or SOB. Her platelet count is still hg [phone]. 04/07/22: Patient is here for 2 months follow up for her ET. She is using hydrea once daily except M through F 2 daily. She denied any new side effects. For few days only now she feels slight dizziness at times but she might not be drinking enough water with the hot weather now. Also uses ASA daily. No new complaints. She denied current infections or fevers or bleeding or TIA, CVA or CP or SOB. She denied any fevers or sores in the mouth. 07/14/22: Patient is here for 3 months follow up for her ET. She is using hydrea twice daily except Sat and Sun once daily. She also takes her 2 baby ASA daily. She denied any new side effects. She still with intermittent left leg edema that is mild since she came back for but her LLE doppler was negative for DVT on 06/13/22. Also uses ASA daily. No new complaints. She denied current infections or fevers or bleeding or TIA, CVA or CP or SOB. She denied any fevers or sores in the mouth. All systems were reviewed and are negative. REVIEW OF SYSTEMS GENERAL: No weight loss, malaise or fevers NECK: Negative for lumps, goiter, pain and significant neck swelling RESPIRATORY: Negative for cough, hemoptysis, wheezing, COPD, dyspnea or shortness of breath CARDIOVASCULAR: Negative for chest pain, leg swelling, hypertension, CHF or palpitations GI: No nausea, vomiting, or diarrhea : No history of dysuria, frequency or incontinence HEMATOLOGY/LYMPHOLOGY: Negative for prolonged bleeding, bruising easily or swollen nodes NEURO: No history of headaches, syncope, paralysis, seizures or tremors; PAST MEDICAL HISTORY Diagnosis Date Hypertension Other acute pain 01/02/2012 Thrombocythemia (HCC) PAST SURGICAL HISTORY Procedure Laterality Date DELIVERY ONLY , low transverse LAPAROSCOPIC CHOLEYCYSTECTOMY 1999 peritonitis REMOVAL OF TONSILS,<12 Y/O Tonsillectomy Allergies: Ultram [Tramadol] Vomiting Social History Tobacco Use Smoking status: Never Smokeless tobacco: Never Substance Use Topics Alcohol use: No Drug use: No Family History Problem Relation Age of Onset Thyroid Mother Cancer Father lung Hypertension Father Hypertension Sister Stroke Paternal Grandmother PHYSICAL EXAM: BP 140/82 Pulse 97 Temp 36.7 C (98 F) (Oral) Resp 16 Wt 101.4 kg (223 lb 9.6 oz) SpO2 97% BMI 38.41 kg/m HEENT: NCAT, PERRLA Neck No LAP or TM, supple neck CHEST: Clear to auscultation. No rhonchi no wheezes. CARDIAC: First and second heart sounds normally audible. No murmurs. ABDOMEN: Soft nontender. Spleen palpable in the left upper quadrant. No hepatomegaly EXT: no edema or erythema of the legs. Some fingernails are long and coming off the nail bed. LABS: ASSESSMENT / PLAN: 1. Essential thrombocytosis. JAK2 Mutated. - Also on baby ASA. She was declined treatment with hydroxyurea till 04/14/2020 when she agreed to start a low-dose of 500 mg 3 times a week. She started that and she is been tolerating it very well without any side effects. Her Platelet count are still elevated slowly improving. Plan: Platelet count has increased again despite she has been on same dose for a while. No current infections or new medications added. No changes in her food. Recheck CBCD in one week. Patietn is to make sure we have a plan for hydrea after the results. Meanwhile, Continue Hydrea to 500 mg twice daily Mondays through Fridays and once daily on Saturdays and Sundays. Continue ASA 81 mg 2 pills daily with food. CBC every 4 weeks. CMP in 12 weeks. RTC in 12 weeks. Dylan Tomas MD Hematology and Oncology Cc: Dr. Wilson documented in this encounter [facility] 04-04-2022 Miscellaneous Notes Patient is coming to be seen on 04/07 no cmp order in chart only cbc documented in this encounter [facility] Evaluation note Diagnosis Thrombocythemia- Primary Essential thrombocythemia [facility] Pain of left lower extremity- Primary [facility] Thrombocythemia- Primary Essential thrombocythemia [facility] Diagnosis Thrombocythemia- Primary Essential thrombocythemia [facility] Diagnosis Thrombocythemia- Primary Essential thrombocythemia [facility] Diagnosis Thrombocythemia- Primary Essential thrombocythemia [facility] Diagnosis Thrombocythemia- Primary Essential thrombocythemia Encounter for monitoring of hydroxyurea therapy Macrocytosis without anemia Other specified diseases of blood and blood-forming organs [facility] Thrombocythemia- Primary Essential thrombocythemia Encounter for monitoring of hydroxyurea therapy [facility] Diagnosis Primary hypertension- Primary Unspecified essential hypertension Thrombocythemia Essential thrombocythemia Urticaria Unspecified urticaria Acute cystitis without hematuria Encounter for screening mammogram for malignant neoplasm of breast documented in this encounter [facility] Work Phone: Evaluation note* Diagnosis Thrombocythemia- Primary Essential thrombocythemia [facility] Diagnosis Wheezing-associated respiratory infection (WARI)- Primary Primary hypertension Unspecified essential hypertension Thrombocythemia Essential thrombocythemia Essential (hemorrhagic) thrombocythemia (CMS/HCC) documented in this encounter [facility] Work Phone: Evaluation note* Diagnosis Macrocytosis without anemia- Primary Other specified diseases of blood and blood-forming organs Thrombocythemia Essential thrombocythemia [facility] Diagnosis Thrombocythemia- Primary Essential thrombocythemia Encounter for monitoring of hydroxyurea therapy [facility] Diagnosis Thrombocythemia- Primary Essential thrombocythemia Macrocytosis without anemia Other specified diseases of blood and blood-forming organs [facility] Diagnosis Primary hypertension Unspecified essential hypertension Thrombocythemia Essential thrombocythemia Wheezing-associated respiratory infection (WARI) documented in this encounter [facility] Work Phone: Evaluation note* Diagnosis Thrombocythemia Essential thrombocythemia Macrocytosis without anemia Other specified diseases of blood and blood-forming organs [facility] Diagnosis Thrombocythemia- Primary Essential thrombocythemia Macrocytosis without anemia Other specified diseases of blood and blood-forming organs Encounter for monitoring of hydroxyurea therapy [facility] Diagnosis Hypokalemia- Primary Hypopotassemia [facility] Diagnosis Hypokalemia Hypopotassemia [facility] Diagnosis Hypokalemia Hypopotassemia [facility] Thrombocythemia- Primary Essential thrombocythemia Macrocytosis without anemia Other specified diseases of blood and blood-forming organs [facility] Diagnosis Breast cancer screening by mammogram- Primary Primary hypertension Unspecified essential hypertension Thrombocythemia Essential thrombocythemia Essential (hemorrhagic) thrombocythemia Screen for colon cancer Special screening for malignant neoplasms, colon documented in this encounter [facility] Work Phone: Evaluation note* Diagnosis Thrombocythemia- Primary Essential thrombocythemia [facility] Diagnosis Thrombocythemia- Primary Essential thrombocythemia Macrocytosis without anemia Other specified diseases of blood and blood-forming organs [facility] Since the last office visit there have been no interval operations, hospitalizations, important illn esses or injuries. * fibroscan per ghlam as not cindcerned even tho numberwsincreased. to dec 18. * HTN-Takes and tolerates meds without side effects. No alcohol. no tobacco. no exercise. low salt. Reviewed recommendation for 150 minutes of exercise per week including 2 days of weight training if over age 50 * see H?O q3 mo for thrombocytosis .500 * colon 2014 q10 -[employer] [facility] Work Phone: History of Present illness Narrative* Since the last office visit there have been no interval operations, hospitalizations, important illnesses or injuries. * HTN-Takes and tolerates meds without side effects. No alcohol. no tobacco. no exercise. low salt. Reviewed recommendation for 150 minutes of exercise per week including 2 days of weight training if over age 50. 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 * [facility] heme rviewed * HTN-Takes and tolerates meds without side effects. rare alcohol. no tobacco. no exercise. low salt.Reviewed recommendation for 150 minutes of exercise per week including 2 days of weight training ifover age 50 * farris missed last appt , lft areacceptable, rev wt gain [facility] Work Phone: reason for referral (narrative)* Diagnostic Procedure Only (Routine) - Pending Review Specialty Diagnoses / Procedures Referred By Contac t Referred To Contact US IMAGING Diagnoses Pain of left lower extremity Procedures US DVT LOWER LT DUP-SCAN XTR VEINS UNILATERAL/LIMITED STUDY Tamia Encarnacion, MONITORING AND EVALUATION ADVISOR.BLANKING MACHINE OPERATOR [address] [place] [address] Us Imaging Referral ID Status Reason Start Date Expiration Date Visits Requested Visits Authorized [id number] Pending Review Auto-Generat ed Referral 06/13/2022 07/13/2023 1 1 [facility] for referral (narrative)* Consultation (Routine) - Authorized Specialty Diagnoses / Procedures Referred By Contac t Referred To Contact Primary Care Diagnoses Primary hypertension Thrombocythemia Wheezing-associated respiratory infection (WARI) Procedures Follow Up In Primary Care - Established Gabriel Wilson MD [address] [place] [address] Referral ID Status Reason Start Date Expiration Date V isits Requested Visits Authorized [id number] Authorized 03/01/2024 03/01/[address] [facility] Work Phone: Reason for referral (narrative)* Consultation (Routine) - Authorized Specialty Diagnoses / Procedures Referred By Contac t Referred To Contact Primary Care Diagnoses Primary hypertension Thrombocythemia Wheezing-associated respiratory infection (WARI) Procedures Follow Up In Primary Care Gabriel Wilson MD [address] [address] Referral ID Status Reason Start Date Expiration Date V isits Requested Visits Authorized [id number] Authorized 08/30/2024 08/30/[address] [facility] Work Phone: Summary Purpose Family History No Family History Records Found Mother Name Dates Details Family history of congestive heart failure(V17.49, Z82.49) Status:Active Family history of asthma(V17 .5, Z82.5) Status:Active Family history of diabetes m ellitus(V18.0, Z83.3) Status:Active Father Name Dates Details Family history of hypertensi on(V17.49, Z82.49) Status:Active Family history of lung cance r(V16.1, Z80.1) Status:Active Brother Name Dates Details Family history of myocardial infarction(V17.3, Z82.49) Status:Active Unknown Family Member Name Dates Details Family history of congestive heart failure: Mother(V17.49, Z82.49) Status:Active Family history of asthma: Mo ther(V17.5, Z82.5) Status:Active Family history of hypertensi on: Father(V17.49, Z82.49) Status:Active Family history of lung cance r: Father(V16.1, Z80.1) Status:Active Family history of myocardial infarction: Brother(V17.3, Z82.49) Status:Active Family history of diabetes m ellitus: Mother(V18.0, Z83.3) Status:Active Unknown Family Member Name Dates Details Family history of congestive heart failure: Mother(V17.49, Z82.49) Status:Active Family history of asthma: Mo ther(V17.5, Z82.5) Status:Active Family history of hypertensi on: Father(V17.49, Z82.49) Status:Active Family history of lung cance r: Father(V16.1, Z80.1) Status:Active Family history of myocardial infarction: Brother(V17.3, Z82.49) Status:Active Family history of diabetes m ellitus: Mother(V18.0, Z83.3) Status:Active Unknown Family Member Name Dates Details Family history of congestive heart failure: Mother(V17.49, Z82.49) Status:Active Family history of asthma: Mo ther(V17.5, Z82.5) Status:Active Family history of hypertensi on: Father(V17.49, Z82.49) Status:Active Family history of lung cance r: Father(V16.1, Z80.1) Status:Active Family history of myocardial infarction: Brother(V17.3, Z82.49) Status:Active Family history of diabetes m ellitus: Mother(V18.0, Z83.3) Status:Active Unknown Family Member Name Dates Details Family history of congestive heart failure: Mother(V17.49, Z82.49) Status:Active Family history of asthma: Mo ther(V17.5, Z82.5) Status:Active Family history of hypertensi on: Father(V17.49, Z82.49) Status:Active Family history of lung cance r: Father(V16.1, Z80.1) Status:Active Family history of myocardial infarction: Brother(V17.3, Z82.49) Status:Active Family history of diabetes m ellitus: Mother(V18.0, Z83.3) Status:Active Unknown Family Member Name Dates Details Family history of congestive heart failure: Mother(V17.49, Z82.49) Status:Active Family history of asthma: Mo ther(V17.5, Z82.5) Status:Active Family history of hypertensi on: Father(V17.49, Z82.49) Status:Active Family history of lung cance r: Father(V16.1, Z80.1) Status:Active Family history of myocardial infarction: Brother(V17.3, Z82.49) Status:Active Family history of diabetes m ellitus: Mother(V18.0, Z83.3) Status:Active Unknown Family Member Name Dates Details Family history of congestive heart failure: Mother(V17.49, Z82.49) Status:Active Family history of asthma: Mo ther(V17.5, Z82.5) Status:Active Family history of hypertensi on: Father(V17.49, Z82.49) Status:Active Family history of lung cance r: Father(V16.1, Z80.1) Status:Active Family history of myocardial infarction: Brother(V17.3, Z82.49) Status:Active Family history of diabetes m ellitus: Mother(V18.0, Z83.3) Status:Active Advance Directives No Advanced Directives Records FoundDocuments on File Type Date Recorded Patient Shaker Out Expl anation Advance Directives and Living Will Chief Complaint 6 MO HTN FARRIS THROMBOCYTHEMIA CK REV LABS6 MO FU6 mo fu Reason for Referral Specialty Diagnoses / Procedures Referred By Danay aburto Referred To Contact Radiology Diagnoses Encounter for screening mammogram for malignant neoplasm of breast Procedures BI mammo bilateral [place] [address] [place] [address] Referral ID Status Reason Start Date Expiration Date Visits Requested Visits Authorized [id number] Authorized Perform Procedure 08/31/2023 02/27/2024 1 1 Specialty Diagnoses / Procedures Referred By Danay aburto Referred To Contact Primary Care Diagnoses Primary hypertension Thrombocythemia Procedures Follow Up [place] [address] [place] [id number] Referral ID Status Reason Start Date Expiration Date V isits Requested Visits Authorized [id number] Authorized 08/31/2023 02/27/2024 1 1 Additional Source Comments INFORMATION SOURCE (unrecogn ized section and content) DATE CREATED AUTHOR 10/21/2018 [facility] DATE CREATED AUTHOR AUTHOR'S ORGANIZ ATION 09/11/2019 [facility] DATE CREATED AUTHOR AUTHOR'S ORGANIZ ATION [facility] DATE CREATED AUTHOR AUTHOR'S ORGANIZ ATION 06/17/2022 [facility] DATE CREATED AUTHOR AUTHOR'S ORGANIZ ATION 06/17/2022 [facility] DATE CREATED AUTHOR AUTHOR'S ORGANIZ ATION 01/20/2023 [facility] DATE CREATED AUTHOR AUTHOR'S ORGANIZ ATION 01/20/2023 [employer] DATE CREATED AUTHOR AUTHOR'S ORGANIZ ATION 03/04/2023 [facility] DATE CREATED AUTHOR AUTHOR'S ORGANIZ ATION 04/12/2025 [facility] DATE CREATED AUTHOR AUTHOR'S ORGANIZ ATION 04/24/2025 [facility] DATE CREATED AUTHOR AUTHOR'S ORGANIZ ATION 10/07/2025 [facility] Source Comments (unrecognize d section and content) In the event this informatio n is protected by the Federal Confidentiality of Alcohol and Drug Abuse Patient Records regulations: The Federal rules restrict any use of the information to criminally investigate or prosecute any alcohol or drug abuse patient.[facility] the event this information is protected by the Federal Confidentiality of Alcohol and Drug Abuse Patient Records regulations: The Federal rules restrict any use of the information to criminally investigate or prosecute any alcohol or drug abuse patient.[facility] the event this information is protected by the Federal Confidentiality of Alcohol and Drug Abuse Patient Records regulations: The Federal rules restrict any use of the information to criminally investigate or prosecute any alcohol or drug abuse patient.[facility] the event this information is protected by the Federal Confidentiality of Alcohol and Drug Abuse Patient Records regulations: The Federal rules restrict any use of the information to criminally investigate or prosecute any alcohol or drug abuse patient.[facility] the event this information is protected by the Federal Confidentiality of Alcohol and Drug Abuse Patient Records regulations: The Federal rules restrict any use of the information to criminally investigate or prosecute any alcohol or drug abuse patient.[facility] the event this information is protected by the Federal Confidentiality of Alcohol and Drug Abuse Patient Records regulations: The Federal rules restrict any use of the information to criminally investigate or prosecute any alcohol or drug abuse patient.[facility] the event this information is protected by the Federal Confidentiality of Alcohol and Drug Abuse Patient Records regulations: The Federal rules restrict any use of the information to criminally investigate or prosecute any alcohol or drug abuse patient.[facility] the event this information is protected by the Federal Confidentiality of Alcohol and Drug Abuse Patient Records regulations: The Federal rules restrict any use of the information to criminally investigate or prosecute any alcohol or drug abuse patient.[facility] the event this information is protected by the Federal Confidentiality of Alcohol and Drug Abuse Patient Records regulations: The Federal rules restrict any use of the information to criminally investigate or prosecute any alcohol or drug abuse patient.[facility] the event this information is protected by the Federal Confidentiality of Alcohol and Drug Abuse Patient Records regulations: The Federal rules restrict any use of the information to criminally investigate or prosecute any alcohol or drug abuse patient.[facility] the event this information is protected by the Federal Confidentiality of Alcohol and Drug Abuse Patient Records regulations: The Federal rules restrict any use of the information to criminally investigate or prosecute any alcohol or drug abuse patient.[facility] the event this information is protected by the Federal Confidentiality of Alcohol and Drug Abuse Patient Records regulations: The Federal rules restrict any use of the information to criminally investigate or prosecute any alcohol or drug abuse patient.[facility] the event this information is protected by the Federal Confidentiality of Alcohol and Drug Abuse Patient Records regulations: The Federal rules restrict any use of the information to criminally investigate or prosecute any alcohol or drug abuse patient.[facility] the event this information is protected by the Federal Confidentiality of Alcohol and Drug Abuse Patient Records regulations: The Federal rules restrict any use of the information to criminally investigate or prosecute any alcohol or drug abuse patient.[facility] the event this information is protected by the Federal Confidentiality of Alcohol and Drug Abuse Patient Records regulations: The Federal rules restrict any use of the information to criminally investigate or prosecute any alcohol or drug abuse patient.[facility] the event this information is protected by the Federal Confidentiality of Alcohol and Drug Abuse Patient Records regulations: The Federal rules restrict any use of the information to criminally investigate or prosecute any alcohol or drug abuse patient.[facility] the event this information is protected by the Federal Confidentiality of Alcohol and Drug Abuse Patient Records regulations: The Federal rules restrict any use of the information to criminally investigate or prosecute any alcohol or drug abuse patient.[facility] the event this information is protected by the Federal Confidentiality of Alcohol and Drug Abuse Patient Records regulations: The Federal rules restrict any use of the information to criminally investigate or prosecute any alcohol or drug abuse patient.[facility] the event this information is protected by the Federal Confidentiality of Alcohol and Drug Abuse Patient Records regulations: The Federal rules restrict any use of the information to criminally investigate or prosecute any alcohol or drug abuse patient.[facility] the event this information is protected by the Federal Confidentiality of Alcohol and Drug Abuse Patient Records regulations: The Federal rules restrict any use of the information to criminally investigate or prosecute any alcohol or drug abuse patient.[facility] the event this information is protected by the Federal Confidentiality of Alcohol and Drug Abuse Patient Records regulations: The Federal rules restrict any use of the information to criminally investigate or prosecute any alcohol or drug abuse patient.[facility] the event this information is protected by the Federal Confidentiality of Alcohol and Drug Abuse Patient Records regulations: The Federal rules restrict any use of the information to criminally investigate or prosecute any alcohol or drug abuse patient.[facility] the event this information is protected by the Federal Confidentiality of Alcohol and Drug Abuse Patient Records regulations: The Federal rules restrict any use of the information to criminally investigate or prosecute any alcohol or drug abuse patient.[facility] the event this information is protected by the Federal Confidentiality of Alcohol and Drug Abuse Patient Records regulations: The Federal rules restrict any use of the information to criminally investigate or prosecute any alcohol or drug abuse patient.[facility] the event this information is protected by the Federal Confidentiality of Alcohol and Drug Abuse Patient Records regulations: The Federal rules restrict any use of the information to criminally investigate or prosecute any alcohol or drug abuse patient.[facility] the event this information is protected by the Federal Confidentiality of Alcohol and Drug Abuse Patient Records regulations: The Federal rules restrict any use of the information to criminally investigate or prosecute any alcohol or drug abuse patient.[facility] the event this information is protected by the Federal Confidentiality of Alcohol and Drug Abuse Patient Records regulations: The Federal rules restrict any use of the information to criminally investigate or prosecute any alcohol or drug abuse patient.[facility] the event this information is protected by the Federal Confidentiality of Alcohol and Drug Abuse Patient Records regulations: The Federal rules restrict any use of the information to criminally investigate or prosecute any alcohol or drug abuse patient.[facility] Reason for Visit (unrecogniz ed section and content) Reason Comments Follow-up 6 MO FU Specialty Diagnoses / Procedures Referred By Danay aburto Referred To Contact Primary Care Diagnoses Primary hypertension Thrombocythemia Procedures Follow Up In Primary Care Gabriel Wilson MD [address] [place] [address] Referral ID Status Reason Start Date Expiration Date Visits Re quested Visits Authorized [id number] Closed 08/31/2023 02/27/2024 1 1 Reason Comments Refill Request Requesting 90 day edwards pply Reason Comments Lab Orders Reason Comments Orders patient called in co ncerned with having Left lower leg swelling. Denies redness or pain. Discussed with Tamia DRAPER new orders received. Will schedule phone visit after. Patient aware and verbalizes understanding. 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 Per Dr Tomas pt should stay on same dose and recheck at scheduled time. Pt updated and denies other needs. Reason Onset Date Comments Clinical Update 09/09/2022 Reason Comments No Show Labs Reason Onset Date Comments Lab Orders 06/28/2023 Reason Comments Follow-up 6 mo Referral ID Status Reason Start Date Expiration Date Visits Re quested Visits Authorized [id number] Closed 02/27/2023 08/26/2023 1 1 Reason Comments Refill Request Reason Comments Results LM for patient to re turn my call. AA Reason Comments Follow-up 6 mo Specialty Diagnoses / Procedures Referred By Contac t Referred To Contact Primary Care Diagnoses Primary hypertension Thrombocythemia Wheezing-associated respiratory infection (WARI) Procedures Follow Up In Primary Care - Established Gabriel Wilson MD [address] [place] [address] Referral ID Status Reason Start Date Expiration Date V isits Requested Visits Authorized [id number] Authorized 03/01/2024 03/01/2025 1 1 Reason Comments Results Lab results faxed to pcp and script sent to Dr Rodgers for sig. AA Reason Onset Date Comments Refill Request 11/28/2024 Reason Comments Follow-up 6 month follow up Specialty Diagnoses / Procedures Referred By Contac t Referred To Contact Primary Care Diagnoses Primary hypertension Thrombocythemia Wheezing-associated respiratory infection (WARI) Procedures Follow Up In Primary Care Gabriel Wilson MD [address] [id number] Phone: tel: fax: Referral ID Status Reason Start Date Expiration Date V isits Requested Visits Authorized [id number] Authorized 08/30/2024 08/30/2025 1 1 Reason Comments Established Patient Thrombocythemia Care Teams (unrecognized sec tion and content) Roaster Operator Relationship Specialty Start Date End Date Gabriel Wilson PCP - General 12/03/09 Roaster Operator Relationship Specialty Start Date End Date Gabriel Wilson PCP - General 12/03/09 Roaster Operator Relationship Specialty Start Date End Date Gabriel Wilson PCP - General 12/03/09 Roaster Operator Relationship Specialty Start Date End Date Gabriel Wilson PCP - General 12/03/09 Roaster Operator Relationship Specialty Start Date End Date Gabriel Wilson PCP - General 12/03/09 Roaster Operator Relationship Specialty Start Date End Date Gabriel Wilson PCP - General 12/03/09 Roaster Operator Relationship Specialty Start Date End Date DimitrygoldieGabriel Ankit PCP - General 12/03/09 Roaster Operator Relationship Specialty Start Date End Date DimitrygoldieGabriel Ankit PCP - General 12/03/09 Roaster Operator Relationship Specialty Start Date End Date DimitrygoldieGabriel Ankit PCP - General 12/03/09 Roaster Operator Relationship Specialty Start Date End Date Dimitrygoldie Gabriel Braden PCP - General 12/03/09 Roaster Operator Relationship Specialty Start Date End Date DimitryGabriel laws PCP - General 12/03/09 Roaster Operator Relationship Specialty Start Date End Date Gabriel Wilson MD PCP - General 12/03/09 Roaster Operator Relationship Specialty Start Date End Date Gabriel Wilson MD [address] [facility] [place] [address] PCP - General 06/28/18 Ness Steele APRN-[facility] [address] [facility] [place] [address] PCP - MMO ACO PCP 03/27/23 Roaster Operator Relationship Specialty Start Date End Date Gabriel Wilson MD PCP - General 12/03/09 Roaster Operator Relationship Specialty Start Date End Date Gabriel Wilson MD PCP - General 12/03/09 Roaster Operator Relationship Specialty Start Date End Date Gabriel Wilson MD [address] [place] [address] PCP - General 06/28/18 Gabriel Wilson MD [address] [facility] [place] [address] PCP - MMO ACO PCP 11/27/23 Roaster Operator Relationship Specialty Start Date End Date Gabreil Wilson MD PCP - General 12/03/09 Roaster Operator Relationship Specialty Start Date End Date Gabriel Wilson MD PCP - General 12/03/09 Roaster Operator Relationship Specialty Start Date End Date Gabriel Wilson MD [address] [address] PCP - MMO ACO PCP 11/27/23 Gabriel Wilson MD [address] [address] PCP - General Family Medicine 08/30/24 Roaster Operator Relationship Specialty Start Date End Date Gabriel Wilson MD PCP - General 12/03/09 Roaster Operator Relationship Specialty Start Date End Date Gabriel Wilson MD PCP - General 12/03/09 Roaster Operator Relationship Specialty Start Date End Date Gabriel Wilson MD [address] [address] PCP - MMO ACO PCP 11/27/23 Gabriel Wilson MD [address] [place] [address] PCP - General Family Medicine 08/30/24 Roaster Operator Relationship Specialty Start Date End Date Gabriel Wilson MD PCP - General 12/03/09 FOR RECORDS PERTAINING TO PATIENTS WHO ARE OR HAVE BEEN ENROLLED IN A CHEMICAL DEPENDENCY/SUBSTANCEABUSE PROGRAM, SOME INFORMATION MAY BE OMITTED. This clinical summary was aggregated from multiple sources. Caution should be exercised in using it in the provision of clinical care. This summary normalizes information from multiple sources, and as a consequence, information in this document may materially change the coding, format and clinical context of patient data. In addition, data may be omitted in some cases. CLINICAL DECISIONS SHOULD BE BASED ON THE PRIMARY CLINICAL RECORDS. [facility] [employer] provides no warranty or guarantee of the accuracy or completeness of information in this document.
== END | disposition home or self-care (01) ==
PROVIDERS: PCP Family Medicine; Referring Provider Family Medicine; Visit Provider Family Medicine
DX: K75.81 Nonalcoholic steatohepatitis (NASH) (principal); J98.8 Other specified respiratory disorders
CPT/HCPCS: 76705; 76981